=== PATIENT | female | born 1945 | race Caucasian/White ===

== ENCOUNTER 2022-11-19 09:38 | Outpatient (CLI) | payer MEDICARE, OTHER, SELFPAY | END 2022-11-19 09:39 | disposition home or self-care (01) | LOC: INJ CL 09:40 | PROVIDERS: PCP Family Medicine; Visit Provider Family Medicine | DX: M16.11 Unilateral primary osteoarthritis, right hip (principal); M25.551 Pain in right hip | CPT/HCPCS: 20610; 77002; J0702; Q9966 ==

== ENCOUNTER 2023-06-10 15:50 | Inpatient (IN) | payer MEDICARE, OTHER, SELFPAY ==
[2023-06-10] VITALS (102 sets, daily range): BP systolic 40–186; BP diastolic 21–104; PULSE 50–118; RESP 12–22; TEMP 35.9–36.8; O2SAT 92–100; BMI 32.2
[2023-06-10] MEDS: LACTATED RINGERS 1000 ML 1,000 ML 100 ML IV ×2 (06:15→09:36)
[2023-06-10] MEDS: ACETAMINOPHEN 500 MG TABLET 1000 MG PO ×3 (07:16→20:55)
[2023-06-10] MEDS: OXYCODONE (CR) 10 MG TAB.ER.12H PO (07:17)
[2023-06-10] MEDS: CELECOXIB 200 MG CAPSULE PO (07:17)
[2023-06-10] MEDS: SODIUM CHLORIDE 0.9 % (FLUSH) 10 ML SYRINGE IVF (07:17)
--- NOTE | 2023-06-10 07:45 | CRLHL7_ITS ---
For Patients: As a result of the Cures Act, medical imaging exams and procedure reports are released immediately into your electronic medical record. You may view this report before your referring provider. If you have questions, please contact your health care provider. Indication: Hip replacement surgery Technique: AP hip fluoroscopic images. Fluoroscopy time 86.1 seconds. Findings/Impression: Hardware from a right total hip arthroplasty is in satisfactory position. Dictated by Valentino Reyes MD @ 06/10/2023 12:44:54 PM (Electronically Signed)
--- NOTE | 2023-06-10 07:48 | SUR.PREOP ---
TIME?OUT:?0750 PT/RN/MDA?VERIFICATION?OF?SURGICAL?SITERight Hip,?PROCEDURE Nerve Block,?AND?CONSENT OBTAINED?PRIOR?TO?INVASIVE?PROCEDURE.
[2023-06-10] MEDS: MIDAZOLAM HCL 1 MG/ML inj IVP (07:51)
[2023-06-10] MEDS: fentaNYL 100 MCG/2 ML inj IVP (07:51)
[2023-06-10] MEDS: TRANEXAMIC ACID 100 MG/ML INJ 1000 MG IV (08:10)
[2023-06-10] MEDS: CEFAZOLIN 2 GM INJ IVP (08:15)
--- NOTE | 2023-06-10 08:25 | P.NB_ITS ---
Nerve Block Nerve Block Time Seen by Provider: 07:54 Date Seen: 06/10/23 Type of block requested by surgeon for post-operative analgesia: SAYDA/LFCN Side: right Time out performed: Yes Verification of patient name: Yes Verification of date of : Yes Site marking: site marked Name of person performing procedure: Varinder Continuous monitoring Was continuous monitoring of O2 sat, B/P, personnel monitor, recorded every 15 minutes?: Yes Procedure Checklist: sterile prep, needles and gloves Ultrasound guided. Images saved: Yes Medications given in 5ml increments after negative aspiration: Ropivicaine %: 0.5 mL: 30 Needle gauge: 20 Decadron (mg): 10 Precedex (mcg): 25 Patient tolerated procedure well: Yes Additional comments: Needle noted below psoas tendon needle noted adjacent to LFCN Block Charges Block Charge (with Pro Fee): Other Periph Nerve Block Use of Ultrasound Machine for Block: Yes- US Guidance/pain block
--- NOTE | 2023-06-10 08:26 | W.ANESCHARGE ---
Anesthesia Charges Start Date/Time Anesthesia Start Date: 06/10/23 Anesthesia Start Time: 07:58 Stop Date/Time Anesthesia Stop Date: 06/10/23 Anesthesia Stop Time: : Summary Extremes of Age - Over 70 or under 1: MDA
--- NOTE | 2023-06-10 09:32 | CRLHL7_ITS ---
For Patients: As a result of the Cures Act, medical imaging exams and procedure reports are released immediately into your electronic medical record. You may view this report before your referring provider. If you have questions, please contact your health care provider. Indication: Postop Technique: AP hip centered pelvis and lateral view right hip Findings/Impression: Hardware from a right total hip arthroplasty is in satisfactory position. Bone alignment is normal. No sign of acute fracture. There is a curvilinear density projecting over the upper thigh soft tissues measuring 1.5 cm in length, possible foreign body. Degenerative changes left hip. Dictated by Valentino Reyes MD @ 06/10/2023 12:49:05 PM (Electronically Signed)
--- NOTE | 2023-06-10 09:34 | P.ORPRC_ITS ---
Procedure Note Date of procedure: 06/10/23 Procedure: PREOPERATIVE DIAGNOSIS: Right hip osteoarthritis POSTOPERATIVE DIAGNOSIS: Right hip osteoarthritis NAME OF OPERATION: Right total hip arthroplasty SURGEON: Spencer Oconnor MD BUILDING MAINTENANCE WORKER: Gia Orr PA-C, JAMIE Kraft IMPLANTS: 1. [employer] # 54 sector ingrowth cup 2. 36 x 54 +4 neutral polyethylene 3. Actis # 7 standard collared ingrowth stem 4. 36 + 1.5 cobalt chrome femoral head ANESTHESIA: General ESTIMATED BLOOD LOSS: 1000 cc COMPLICATIONS: None SPECIMENS: None DRAINS: None PREOPERATIVE ANTIBIOTICS: Ancef 2 grams INDICATIONS: The patient is a 77-year-old with a longstanding history of severe, unrelenting right hip pain secondary to end-stage right hip osteoarthritis. Despite appropriate nonoperative management, including activity modification, use of an assist device, anti-inflammatories, [id number] pain medication, physical therapy and injections, they continue to have pain and disability. Operative intervention was offered. The risks, benefits and expected outcomes were discussed in detail. These included but were not limited to: Infection, bleeding, injury to blood vessel or nerve, venous thromboembolism. All questions were answered to their satisfaction. Use of an embalmer assistant was necessary throughout the case for patient positioning and safety, soft tissue retraction and closure. PROCEDURE: The patient was placed supine on the Kelly table. General anesthesia was administered. The embalmer assistant made sure the patient was properly positioned. The right hip was prepped and draped in the usual sterile fashion. The image intensifier was brought in for a perfect AP pelvis and a perfect double tear drop AP view of each hip which were used for intraoperative templating with our fluoroscopic guide. An oblique incision was made 3 cm distal and 3 cm lateral to the anterior superior iliac spine. The embalmer assistant retracted the soft tissues to protect them. Subcutaneous dissection was taken with electrocautery to the superficial fascia. The fascia was divided in line with the incision. Blunt dissection was carried medially to the tensor fascia roberto and sartorius interval. Deep dissection was carried with electrocautery. The circumflex vessels were cauterized and divided. The capsule was exposed and then divided in a T- fashion, tagged with #1 Ethibond sutures. Retractors were placed in the joint, held by the embalmer assistant. The corkscrew was placed in the femoral head. The neck cut was made in the subcapital region. We made a second neck cut more distal. The napkin ring of bone was removed. The femoral head was removed intact. Acetabular retractors were placed, held by the embalmer assistant. The labrum was sharply debrided. The capsule was released. The 43 mm reamer was used to the true medial wall. We then enlarged in 2 mm increments using the image intensifier for our reamer placement. We impacted the cup which had excellent purchase. We placed the hole eliminator and the polyethylene. Attention was then turned to the proximal femur. The limb was placed in 140 degrees of external rotation, maximum extension and adduction. A significant amount of time was spent releasing the capsule to allow us to deliver the femur into the wound and complete the femoral side safely. Retractors were held by the embalmer assistant throughout the femoral preparation. The cook box filler and canal finder were used. Broaches were used to a stable size. The calcar reamer was used. Trial components were placed. The hip was reduced and was found to be stable with appropriate soft tissue tension. Length and offset had been nicely restored using the image intensifier and our fluoroscopic guide. Trial components were removed. The stem was impacted. We placed the femoral head. Again, the hip was reduced and was found to be stable with appropriate soft tissue tension. Length and offset had been nicely restored. The embalmer assistant did a three minute dilute Betadine solution soak. The embalmer assistant irrigated the wound with 3 liters of normal saline via pulse lavage. The embalmer assistant repaired the anterior capsule with a #1 Vicryl and our previously placed Ethibond sutures. The embalmer assistant closed the fascia over the tensor fascia roberto with a #1 PDO Stratafix, subcutaneous tissues with 2-0 Vicryl, skin with a running 3-0 Stratafix and glue. A dry dressing was applied by the embalmer assistant. Sponge and needle counts were correct x 2. The patient tolerated the procedure well; there were no apparent complications. They were awakened and extubated in the operating room, sent to the Post-Anesthesia Care Unit in satisfactory condition. PLAN: 1. The patient will be mobilized with physical therapy, weight-bearing as tolerates 2. Xarelto x 5 days then aspirin x 30 days will be used for DVT prophylaxis 3. The patient will be discharged once medically appropriate
--- NOTE | 2023-06-10 10:26 | W.ANESCHARGE ---
Anesthesia Charges Start Date/Time Anesthesia Start Date: 06/10/23 Anesthesia Start Time: 07:58 Stop Date/Time Anesthesia Stop Date: 06/10/23 Anesthesia Stop Time: 10:23
[2023-06-10] MEDS: fentaNYL 100 MCG/2 ML inj 50 MCG IVP (10:30)
[2023-06-10] MEDS: HYDROmorphone 0.5 mg/0.5 ml inj IVP ×2 (10:38→10:49)
--- NOTE | 2023-06-10 11:04 | PC.NURSE ---
dISCUSSED LOW BP WITH IZA EVANS. HE WAS OKAY WITH CONTINUING TRENDELENBERG, INCREASING FLUIDS TO BRING PRESSURE UP. HE ALSO ORDERED NO FURTHER PAIN MEDICATION.
[2023-06-10] MEDS: LACTATED RINGERS 1000 ML 1,000 ML 35 ML IV ×2 (11:12→12:05)
[2023-06-10] MEDS: PHENYLEPHRINE 100 MCG/ML SYRINGE IVP ×12 (11:15→13:25)
[2023-06-10] MEDS: ePHEDrine sulfate 5 MG/ML inj IVP ×3 (11:39→12:15)
--- NOTE | 2023-06-10 11:58 | PC.NURSE ---
NARENDRA CHANCERY CLERK STARTING SECOND IV
[2023-06-10 12:54] LABS: Hemoglobin* 9.4 gm/dL (12.0-16.0)
--- NOTE | 2023-06-10 13:35 | PC.NURSE ---
Dr. Lewis here to place central line.
--- NOTE | 2023-06-10 13:45 | PC.NURSE ---
Joshua starting procedure to place central line at 1344
--- NOTE | 2023-06-10 13:47 | PC.NURSE ---
central line 3 way cath kit. [id number], lot [id number], expires 05/01/24
--- NOTE | 2023-06-10 14:07 | CRLHL7_ITS ---
For Patients: As a result of the Century Cures Act, medical imaging exams and procedure reports are released immediately into your electronic medical record. You may view this report before your referring provider. If you have questions, please contact your health care provider. INDICATION: Central line placement. TECHNIQUE: Chest 1 view. COMPARISON: None. FINDINGS: Devices: Right IJ central venous catheter distal tip superior cavoatrial junction. Cardiovasculature and mediastinum: Heart size is normal. Normal upper mediastinal contours. Lungs and pleural spaces: Elevated right hemidiaphragm. Lungs are well expanded. No consolidation. No mass. No pleural effusion. No pneumothorax. Bones and soft tissues: No significant findings. IMPRESSION: Right IJ central venous catheter distal tip is in radiographically good position at the superior cavoatrial junction. Dictated by Tamara Fraser MD @ 06/10/2023 2:54:07 PM (Electronically Signed)
--- NOTE | 2023-06-10 14:10 | P.PCN_ITS ---
Procedure Note Date Seen: 06/10/23 Date of procedure: 06/10/23 Will [facility] bill your pro fee for this procedure?: Yes Pre-op diagnosis: 1. Acute blood loss anemia. Post-op diagnosis: same Procedure: 1. Right internal jugular central line placement under ultrasound guidance. Procedure Description: After an informed consent was obtained, patient was positioned and the the right neck was prepped with Chloraprep. An Ultrasound was used to guide the line placement. A right internal jugular vein was identified and 1% Lidocaine without Epinephrine was injected into the skin just above the site of the line placement. A large bore needle was then inserted into the vein under ultrasound guidance and dark venous blood was observed in the syringe. A guide wire was then placed through the needle into the vein and a needle was then withdrawn. Multiple attempts were made at advancing the wire because the patient was dry and the wire would not thread easily. Finally the wire was easily advanced. No ectopy was seen on the quality assurance monitor chassis. Using the Seldinger technique, a dilator was then placed over the wire and used to dilate subcutaneous tissues. After the dilator was withdrawn, a previously flushed triple lumen central line was placed over the wire and the wire was withdrawn. All ports had good blood return into the lumen and they were flushed with normal saline without difficulties. A biopatch was placed at the insertion site. The line was sutured in place. A sterile dressing was placed over the central line. CXR was obtained after the line placement. EBL: 10 mL Complications: none Anesthesia: local Condition: stable Disposition: no change
--- NOTE | 2023-06-10 14:15 | PC.NURSE ---
DR CHARLES CONFIRMED CENTRAL LINE PLACEMENT.
--- NOTE | 2023-06-10 14:33 | PC.NURSE ---
PER MAI GUEVARA, PATIENT TO BE TAKEN TO [facility] AND THEY WILL BE TREATING PATIENTS LOW BP. MEETS DISCHARGE CRITERIA.
[2023-06-10 15:10] LABS: Lactate* 1.9 mmol/L (0.5-1.9)
[2023-06-10 15:12] LABS: Hematocrit 31.7 % (33.0-51.0); Hemoglobin* 9.9 gm/dL (12.0-16.0); Mean Corpuscular HGB Conc 31 gm/dL (32-36); Mean Corpuscular Hemoglobin 30 pg (26-34); Mean Corpuscular Volume 95 fL (80-100); Platelet Count* 280 K/uL (140-440); Red Blood Count 3.34 m/uL (4.00-5.20); White Blood Count* 18.06 K/uL (4.50-11.00)
[2023-06-10 15:14] LABS: Slide Review Reflex No
[2023-06-10] MEDS: TRANEXAMIC ACID 1,000 MG in 0.9 % SODIUM CHLORIDE 100 ml 100 ML 13.75 MG IVPB (15:30)
[2023-06-10 15:33] LABS: Chloride* 105 mmol/L (96-114)
[2023-06-10 15:34] LABS: Albumin* 3.1 g/dL (3.3-5.0); Potassium* 3.8 mmol/L (3.6-5.1); Sodium* 137 mmol/L (135-149)
[2023-06-10 15:37] LABS: Anion Gap 7 mEq/L (7-15); Blood Urea Nitrogen* 17 mg/dL (7-30); Carbon Dioxide* 25 mmol/L (20-32); Creatinine* 0.7 mg/dL (0.5-1.5); Est. Creatinine Clearance* 34.42; Estimated Glomerular Filt Rate 88 ml/min; Glucose* 186 mg/dL (60-115); Phosphorus* 3.5 mg/dL (2.5-4.5)
[2023-06-10 15:38] LABS: Calcium* 8.2 mg/dL (8.4-10.6)
[2023-06-10] MEDS: LACTATED RINGERS 1000 ML 1,000 ML 75 ML IV (15:39)
--- NOTE | 2023-06-10 16:54 | P.IMCN_ITS ---
Date of Consult Patient: Ronn Patient Consult date: 06/10/23 Requesting Physician: Orthopedics Primary Care Provider: Melanie Mcgovern, DO Consult Narrative Reason for consult: Hypovolemic shock, blood loss anemia s/p elective R TONY Narrative: Gabriella Rg is a 77 year old woman underwent an elective right total hip arthroplasty 06/10/[address] Spencer Oconnor, [facility], [place], [place]. Patient ordinarily takes rivaroxaban for paroxysmal atrial fibrillation with a CHADS risk score of 2. Last dose of her rivaroxaban was on 06/06/2023. She was deemed high risk for blood loss intraoperatively. Was given tranexamic acid 1 g IV prior to surgical incision, and another 1 g IV at surgical closure. Lost 1 L of blood intraoperatively. Preoperative hemoglobin was 12.7. Postoperatively around noon today her hemoglobin was down to 9.4. Systolic blood pressures dropped into the 60s for while. Received extra IV fluids. Central line was placed in the operating room. Was started on a norepinephrine drip. Has continued to have adequate urine output. Mentation has been excellent throughout. Review of Systems Status of ROS: Reports: 10 or more systems reviewed and unremarkable except as noted in History and below Narrative: Denies chest heaviness, pressure, tightness, or pain. Denies syncope or near- syncope. We are not allowing her to sit or stand because of her hypotension. Denies nausea or vomiting. No palpitations or chest fluttering. Denies cough, dyspnea at rest, paroxysmal nocturnal dyspnea, orthopnea. No edema. Bowel bladder function have been adequate and satisfactory. No focal motor neurologic deficits. Has plans of recovering with her daughter in her daughter's home for the next couple of weeks. Ordinarily lives in her own home alone. [facility] Medical History Urinary tract infection ?N39.0 - Urinary tract infection, site not specified (ICD-10) Supratherapeutic international normalized ratio (INR) ?R79.1 - Abnormal coagulation profile (ICD-10) Hematuria ?R31.9 - Hematuria, unspecified (ICD-10) Renal mass ?N28.89 - Other specified disorders of kidney and ureter (ICD-10) Stenosis of urinary meatus Lichen sclerosus ?L90.0 - Lichen sclerosus et atrophicus (ICD-10) Non-rheumatic mitral regurgitation ?I34.0 - Nonrheumatic mitral (valve) insufficiency (ICD-10) Osteopenia ?M85.80 - Other specified disorders of bone density and structure, unspecified site (ICD-10) Colon polyp ?K63.5 - Polyp of colon (ICD-10) Vitamin D deficiency ?E55.9 - Vitamin D deficiency, unspecified (ICD-10) Social anxiety disorder ?F40.10 - Social phobia, unspecified (ICD-10) Hypomagnesemia ?E83.42 - Hypomagnesemia (ICD-10) Paroxysmal atrial fibrillation ?I48.0 - Paroxysmal atrial fibrillation (ICD-10) High cholesterol ?E78.00 - Pure hypercholesterolemia, unspecified (ICD-10) Hypertension ?I10 - Essential (primary) hypertension (ICD-10) Osteoarthritis of left hip ?M16.12 - Unilateral primary osteoarthritis, left hip (ICD-10) Osteoarthritis of carpometacarpal (CMC) joint of left thumb ?M18.12 - Unilateral primary osteoarthritis of first carpometacarpal joint, left hand (ICD-10) Osteoarthritis of carpometacarpal (CMC) joint of right thumb ?M18.11 - Unilateral primary osteoarthritis of first carpometacarpal joint, right hand (ICD-10) Surgical History Hx of breast biopsy ?Z98.890 - Other specified postprocedural states (ICD-10) History of hysterectomy ?Z90.710 - Acquired absence of both cervix and uterus (ICD-10) Hx of cholecystectomy ?Z90.49 - Acquired absence of other specified parts of digestive tract (ICD- 10) Social History Narrative: Adopted What is your current living situation?: I presently have a place to live In the past 12 months, utilities in danger of being shut off: no In past 12 months, lack of transportation kept you from medical appts, meetings, work, or getting things needed for daily living: no In the past 12 mos, have been you worried that your food would run out before you had money to buy more?: never true In the past 12 mos, the food you bought just didn't last and you didn't have money to buy more?: never true Smoking Status: Never smoker How often do you have a drink containing alcohol: never AUDIT-C Alcohol total score: 0 Non-prescribed substance use: denies use Caffeine: No How often does anyone, including family, friends and others, physically hurt you : never How often does anyone, including family, friends and others, insult or talk down to you: never How often does anyone, including family, friends and others, threaten you with harm: never How often does anyone, including family, friends and others, scream or curse at you: never Meds Home Medications and Allergies Home Medications Medication Instructions Recorded Confirmed Type amlodipine 2.5 mg tablet 2.5 mg PO DAILY 05/26/23 06/10/23 History atorvastatin 20 mg tablet 20 mg PO HS 05/26/23 06/10/23 History lisinopril 40 mg tablet 40 mg PO DAILY 05/26/23 06/06/23 History metoprolol succinate 50 mg 50 mg PO DAILY 05/26/23 06/10/23 History tablet,extended release 24 hr omeprazole 20 mg capsule,delayed 20 mg PO DAILY 05/26/23 06/10/23 History release rivaroxaban 20 mg tablet (Xarelto) 20 mg PO DAILY 05/26/23 06/10/23 History alendronate 70 mg tablet (Fosamax) 70 mg PO QWEEK 06/06/23 06/10/23 History fluticasone propionate 50 2 spray intranasal DAILY 06/10/23 06/10/23 History mcg/actuation nasal spray,suspension Allergies Allergy/AdvReac Type Severity Reaction Status Date / Time No Known Drug Allergies Allergy Verified 06/10/23 06:33 Exam Narrative: Exam Narrative: I examine her an our CCU area. She is laying in Trendelenburg position, with norepinephrine drip at 0.1 mg per kg per minute, systolic blood pressures above 100-110. Over time her systolic blood pressures increased to 180 in the norepinephrine drip is turned off. Blood pressure is drop at this time but not as low as they were previously. Previously systolic blood pressures were in the 60-70 mmHg range. Vision and hearing are adequate. Alert and oriented to self, place, time, situation. Friendly, cooperative, articulate. No icterus or conjunctival injection. Pupils equally round and reactive to light and accommodation. Conjugate gaze. Midline nasal septum. Moist buccal mucosa. Dentition in fair repair. Neck is supple. Midline trachea. No JVD or hepatojugular reflux. Lungs are clear to auscultation without wheezing, rhonchi, or rales. Chest wall excursions are full. No CVA tenderness. Heart tones with regular rhythm, normal S1-S2. Abdomen with active bowel sounds, soft, nontender. Obese. Not moving left lower extremity yet. Full movement in other extremities. Const: Vital Signs, click to edit/add: Vital Signs - 24 hr 06/10/23 06:59 06/10/23 07:50 06/10/23 07:55 Temperature 98.1 F Pulse Rate 79 75 70 Pulse Rate [Pulse Oximeter] Respiratory Rate 16 16 16 Blood Pressure 114/48 L 110/83 97/69 Blood Pressure [Le ft Arm] Pulse Oximetry 95 97 97 Oxygen Delivery Me thod Room Air Nasal Cannula Nasal Cannula Oxygen Flow Rate 2 2 06/10/23 10:18 06/10/23 10:25 06/10/23 10:30 Temperature 97 F L Pulse Rate 66 58 L 55 L Pulse Rate [Pulse Oximeter] Respiratory Rate 16 16 16 Blood Pressure 119/90 H 108/55 L 103/52 L Blood Pressure [Le ft Arm] Pulse Oximetry 96 100 95 Oxygen Delivery Me thod Room Air Nasal Cannula Nasal Cannula Oxygen Flow Rate 2 2 06/10/23 10:35 06/10/23 10:40 06/10/23 10:45 Temperature Pulse Rate 61 56 L 59 L Pulse Rate [Pulse Oximeter] Respiratory Rate 16 16 16 Blood Pressure 104/91 H 100/52 L 101/59 L Blood Pressure [Le ft Arm] Pulse Oximetry 98 100 100 Oxygen Delivery Me thod Nasal Cannula Nasal Cannula Nasal Cannula Oxygen Flow Rate 2 2 2 06/10/23 10:50 06/10/23 10:55 06/10/23 10:57 Temperature Pulse Rate 53 L 64 54 L Pulse Rate [Pulse Oximeter] Respiratory Rate 16 16 16 Blood Pressure 92/48 L 82/48 L 81/68 L Blood Pressure [Le ft Arm] Pulse Oximetry 100 100 100 Oxygen Delivery Me thod Nasal Cannula Nasal Cannula Nasal Cannula Oxygen Flow Rate 4 4 4 06/10/23 11:00 06/10/23 11:03 06/10/23 11:05 Temperature Pulse Rate 54 L 50 L 79 Pulse Rate [Pulse Oximeter] Respiratory Rate 16 16 16 Blood Pressure 81/60 L 85/48 L 83/50 L Blood Pressure [Le ft Arm] Pulse Oximetry 100 99 99 Oxygen Delivery Me thod Nasal Cannula Nasal Cannula Nasal Cannula Oxygen Flow Rate 4 4 06/10/23 11:08 06/10/23 11:10 06/10/23 11:13 Temperature Pulse Rate 62 63 66 Pulse Rate [Pulse Oximeter] Respiratory Rate 16 16 16 Blood Pressure 82/46 L 76/49 L 80/46 L Blood Pressure [Le ft Arm] Pulse Oximetry 98 99 96 Oxygen Delivery Me thod Nasal Cannula Nasal Cannula Nasal Cannula Oxygen Flow Rate 4 3 2 06/10/23 11:15 06/10/23 11:18 06/10/23 11:20 Temperature Pulse Rate 59 L 59 L 64 Pulse Rate [Pulse Oximeter] Respiratory Rate 16 16 16 Blood Pressure 86/57 L 91/54 L 89/53 L Blood Pressure [Le ft Arm] Pulse Oximetry 98 97 97 Oxygen Delivery Me thod Nasal Cannula Nasal Cannula Nasal Cannula Oxygen Flow Rate 2 2 2 06/10/23 11:23 06/10/23 11:25 06/10/23 11:28 Temperature Pulse Rate 59 L 73 66 Pulse Rate [Pulse Oximeter] Respiratory Rate 16 16 16 Blood Pressure 77/51 L 101/54 L 84/51 L Blood Pressure [Le ft Arm] Pulse Oximetry 99 98 95 Oxygen Delivery Me thod Nasal Cannula Nasal Cannula Nasal Cannula Oxygen Flow Rate 2 2 2 06/10/23 11:30 06/10/23 11:35 06/10/23 11:38 Temperature Pulse Rate 67 60 65 Pulse Rate [Pulse Oximeter] Respiratory Rate 16 16 16 Blood Pressure 82/49 L 85/51 L 71/49 L Blood Pressure [Le ft Arm] Pulse Oximetry 99 99 100 Oxygen Delivery Me thod Nasal Cannula Nasal Cannula Nasal Cannula Oxygen Flow Rate 2 4 4 06/10/23 11:40 06/10/23 11:43 06/10/23 11:45 Temperature Pulse Rate 74 69 67 Pulse Rate [Pulse Oximeter] Respiratory Rate 16 20 18 Blood Pressure 81/59 L 93/47 L 85/48 L Blood Pressure [Le ft Arm] Pulse Oximetry 100 100 99 Oxygen Delivery Me thod Nasal Cannula Nasal Cannula Nasal Cannula Oxygen Flow Rate 4 4 4 06/10/23 11:48 06/10/23 11:50 06/10/23 11:53 Temperature Pulse Rate 64 80 76 Pulse Rate [Pulse Oximeter] Respiratory Rate 16 16 16 Blood Pressure 76/46 L 83/45 L 85/47 L Blood Pressure [Le ft Arm] Pulse Oximetry 97 96 99 Oxygen Delivery Me thod Nasal Cannula Nasal Cannula Nasal Cannula Oxygen Flow Rate 4 4 4 06/10/23 11:57 06/10/23 12:00 06/10/23 12:05 Temperature Pulse Rate 82 63 63 Pulse Rate [Pulse Oximeter] Respiratory Rate 16 16 16 Blood Pressure 104/43 L 77/50 L 106/53 L Blood Pressure [Le ft Arm] Pulse Oximetry 100 99 98 Oxygen Delivery Me thod Nasal Cannula Nasal Cannula Nasal Cannula Oxygen Flow Rate 4 4 4 06/10/23 12:08 06/10/23 12:10 06/10/23 12:12 Temperature Pulse Rate 79 73 80 Pulse Rate [Pulse Oximeter] Respiratory Rate 16 16 16 Blood Pressure 86/47 L 87/52 L 40/21 L Blood Pressure [Le ft Arm] Pulse Oximetry 100 99 98 Oxygen Delivery Me thod Nasal Cannula Nasal Cannula Nasal Cannula Oxygen Flow Rate 4 4 4 06/10/23 12:15 06/10/23 12:18 06/10/23 12:21 Temperature Pulse Rate 80 65 61 Pulse Rate [Pulse Oximeter] Respiratory Rate 16 16 16 Blood Pressure 86/55 L 82/44 L 106/61 Blood Pressure [Le ft Arm] Pulse Oximetry 96 100 100 Oxygen Delivery Me thod Nasal Cannula Nasal Cannula Nasal Cannula Oxygen Flow Rate 4 4 4 06/10/23 12:24 06/10/23 12:27 06/10/23 12:30 Temperature Pulse Rate 69 83 76 Pulse Rate [Pulse Oximeter] Respiratory Rate 16 16 16 Blood Pressure 99/63 87/54 L 105/65 Blood Pressure [Le ft Arm] Pulse Oximetry 99 100 98 Oxygen Delivery Me thod Nasal Cannula Nasal Cannula Nasal Cannula Oxygen Flow Rate 4 4 4 06/10/23 12:33 06/10/23 12:36 06/10/23 12:39 Temperature 97 F L 97 F L Pulse Rate 80 74 90 Pulse Rate [Pulse Oximeter] Respiratory Rate 16 22 16 Blood Pressure 83/49 L 103/62 91/63 Blood Pressure [Le ft Arm] Pulse Oximetry 95 99 96 Oxygen Delivery Me thod Nasal Cannula Nasal Cannula Nasal Cannula Oxygen Flow Rate 4 5 5 06/10/23 12:42 06/10/23 12:45 06/10/23 12:48 Temperature 97 F L 97 F L 97 F L Pulse Rate 80 78 74 Pulse Rate [Pulse Oximeter] Respiratory Rate 17 14 16 Blood Pressure 89/56 L 85/43 L 103/65 Blood Pressure [Le ft Arm] Pulse Oximetry 100 100 98 Oxygen Delivery Me thod Nasal Cannula Nasal Cannula Nasal Cannula Oxygen Flow Rate 4 4 4 06/10/23 12:51 06/10/23 12:54 06/10/23 12:57 Temperature 97 F L 97 F L 97 F L Pulse Rate 82 92 80 Pulse Rate [Pulse Oximeter] Respiratory Rate 16 16 16 Blood Pressure 96/56 L 58/48 L 93/54 L Blood Pressure [Le ft Arm] Pulse Oximetry 100 97 100 Oxygen Delivery Me thod Nasal Cannula Nasal Cannula Nasal Cannula Oxygen Flow Rate 4 4 4 06/10/23 13:00 06/10/23 13:03 06/10/23 13:06 Temperature 97 F L 97 F L 97 F L Pulse Rate 77 87 87 Pulse Rate [Pulse Oximeter] Respiratory Rate 12 14 16 Blood Pressure 93/59 L 86/66 L 86/51 L Blood Pressure [Le ft Arm] Pulse Oximetry 97 99 100 Oxygen Delivery Me thod Nasal Cannula Nasal Cannula Nasal Cannula Oxygen Flow Rate 4 4 4 06/10/23 13:09 06/10/23 13:12 06/10/23 13:15 Temperature 97 F L 97 F L Pulse Rate 68 79 76 Pulse Rate [Pulse Oximeter] Respiratory Rate 15 16 16 Blood Pressure 99/63 87/67 L 87/48 L Blood Pressure [Le ft Arm] Pulse Oximetry 99 98 100 Oxygen Delivery Me thod Nasal Cannula Nasal Cannula Oxygen Flow Rate 4 4 06/10/23 13:18 06/10/23 13:21 06/10/23 13:24 Temperature Pulse Rate 69 85 89 Pulse Rate [Pulse Oximeter] Respiratory Rate 16 16 16 Blood Pressure 103/67 89/54 L 90/61 Blood Pressure [Le ft Arm] Pulse Oximetry 100 98 98 Oxygen Delivery Me thod Oxygen Flow Rate 06/10/23 13:27 06/10/23 13:30 06/10/23 13:33 Temperature Pulse Rate 83 92 96 Pulse Rate [Pulse Oximeter] Respiratory Rate 16 16 16 Blood Pressure 106/59 L 81/63 L 88/59 L Blood Pressure [Le ft Arm] Pulse Oximetry 99 98 98 Oxygen Delivery Me thod Nasal Cannula Oxygen Flow Rate 4 06/10/23 13:36 06/10/23 13:39 06/10/23 13:42 Temperature 96.9 F L Pulse Rate 75 82 76 Pulse Rate [Pulse Oximeter] Respiratory Rate 16 16 16 Blood Pressure 91/53 L 88/52 L 96/54 L Blood Pressure [Le ft Arm] Pulse Oximetry 96 100 100 Oxygen Delivery Me thod Nasal Cannula Oxygen Flow Rate 4 06/10/23 13:45 06/10/23 13:48 06/10/23 13:51 Temperature Pulse Rate 98 101 H 76 Pulse Rate [Pulse Oximeter] Respiratory Rate 16 16 16 Blood Pressure 93/66 99/48 L 100/56 L Blood Pressure [Le ft Arm] Pulse Oximetry 98 100 100 Oxygen Delivery Me thod Oxygen Flow Rate 06/10/23 13:54 06/10/23 13:57 06/10/23 14:00 Temperature 96.9 F L Pulse Rate 89 108 H 78 Pulse Rate [Pulse Oximeter] Respiratory Rate 16 16 16 Blood Pressure 91/68 108/71 105/71 Blood Pressure [Le ft Arm] Pulse Oximetry 100 100 100 Oxygen Delivery Me thod Nasal Cannula Nasal Cannula Oxygen Flow Rate 4 4 06/10/23 14:03 06/10/23 14:06 06/10/23 14:09 Temperature 96.8 F L Pulse Rate 75 63 93 Pulse Rate [Pulse Oximeter] Respiratory Rate 16 16 16 Blood Pressure 107/63 117/97 H 77/43 L Blood Pressure [Le ft Arm] Pulse Oximetry 100 100 97 Oxygen Delivery Me thod Nasal Cannula Oxygen Flow Rate 4 06/10/23 14:11 06/10/23 14:15 06/10/23 14:25 Temperature 96.8 F L Pulse Rate 60 65 101 H Pulse Rate [Pulse Oximeter] Respiratory Rate 16 16 18 Blood Pressure 99/70 83/65 L Blood Pressure [Le ft Arm] 86/54 L Pulse Oximetry 98 100 Oxygen Delivery Me thod Nasal Cannula Nasal Cannula Oxygen Flow Rate 4 2 06/10/23 14:30 06/10/23 14:35 06/10/23 14:40 Temperature Pulse Rate Pulse Rate [Pulse Oximeter] 72 56 L 77 Respiratory Rate 18 18 20 Blood Pressure Blood Pressure [Le ft Arm] 95/52 L 96/63 102/85 Pulse Oximetry 95 95 93 Oxygen Delivery Me thod Nasal Cannula Room Air Nasal Cannula Oxygen Flow Rate 2 2 2 06/10/23 14:45 06/10/23 14:50 06/10/23 15:00 Temperature 97.4 F L 97.4 F L Pulse Rate Pulse Rate [Pulse Oximeter] 83 96 65 Respiratory Rate 20 20 20 Blood Pressure Blood Pressure [Le ft Arm] 172/71 H 167/104 H 186/83 H Pulse Oximetry 98 94 94 Oxygen Delivery Me thod Nasal Cannula Nasal Cannula Nasal Cannula Oxygen Flow Rate 2 2 Documenting provider has reviewed patient's vital signs: yes Labs Labs: Short CBC 06/10/23 06/10/23 Range/Units 15:07 Unknown WBC 18.06 H (4.50-11.00) K/uL Hgb 9.9 L 9.4 L (12.0-16.0) gm/dL Hct 31.7 L (33.0-51.0) % Plt Count 280 (140-440) K/uL BMP 06/10/23 15:07 Sodium 137 Potassium 3.8 Chloride 105 Carbon Dioxide 25 BUN 17 Creatinine 0.7 Glucose 186 H Calcium 8.2 L Liver Function 06/10/23 Range/Units 15:07 Albumin 3.1 L (3.3-5.0) g/dL Assessment and Plan Assessment and plan (1) Postoperative hypovolemic shock: Problem comment: 06/10/2023: Perioperative systolic blood pressures 60-70 mmHg. IV crystalloids administered. Later started on norepinephrine drip. Status: Acute (2) Postoperative anemia due to acute blood loss: Problem comment: Preop hemoglobin on 06/02/2023 was 12.7 mg/dL. Postop hemoglobin on 06/10/2023 was 9.4 at noon. Postop hemoglobin on 06/10/2023 was 9.9 at 3:00 p.m. Status: Acute (3) Osteoarthritis of right hip: Status: Acute (4) S/P total right hip arthroplasty: Status: Acute (5) Paroxysmal atrial fibrillation: Problem comment: 06/10/2023 in normal sinus rhythm Status: Acute (6) Chronic anticoagulation: Problem comment: For paroxysmal atrial fibrillation with rivaroxaban. Last dose of rivaroxaban was 06/06/2023 prior to surgery on 06/10/2023. Status: Acute (7) Non-rheumatic mitral regurgitation: Status: Acute Plan 1. Reviewed impression with patient and daughter. 2. Answered their questions. 3. Change to inpatient care in CCU. 4. Transfuse with 1 unit packed red blood cells 5. Tranexamic acid 1 g IV given at time of surgical incision, also at time of surgical closure. Will give 1 more g IV over 8 hours now. 6. Goal of norepinephrine pressor drip is to maintain mean arterial pressures greater than or equal to 65 mmHg and urine output 0.5 mL/kg/hour, between 35 and 40 mL/hour. 7. Hold rivaroxaban for now. 8. Continue with her low-dose beta-juan manuel for now but hold her other antihypertensive medications. 9. Monitor vitals and labs. Will check an EKG and troponin I. Monitor on telemetry. 10. Patient and daughter agreeable with above stated plans and recommendations. 11. Will work with Orthopedic surgery.
[2023-06-10] MEDS: CEFAZOLIN 2 GM in 0.9 % SODIUM CHLORIDE Mini-bag 100 ML IVPB (16:56)
[2023-06-10 17:17] LABS: Troponin I* < 0.01 ng/mL (0.01-0.04)
[2023-06-10 18:17] LABS: Troponin I* < 0.01 ng/mL (0.01-0.04)
--- NOTE | 2023-06-10 19:33 | PC.NURSE ---
End of shift: [id number], Patient is alert and oriented, dtr at bedside. Patient tolerating reg diet, denies N/V/SOB, chest pain and pain. Patient has a patent colby placed in the OR. Emptied 650cc at 1400 and 75cc at 1600, MD notified of output. Patient receiving 1 unit of PRBCs, tolerating well, no reaction noted. Dressing to right hip C/D/I. Sven teds, plexi pulses and ice pack to op site. Patient has a patent right internal jugular vein 3 lumen central line placed in the OR, a SL 20G IV in her right FA, a patent 18G IV in her left wrist running TXA see eMAR. Patient's BP is stable, MAP of >65.
[2023-06-10] MEDS: MAGNESIUM IV 2 GM/50 ML PIGGYBACK IVPB (20:18)
[2023-06-10] MEDS: 0.9 % SODIUM CHLORIDE 250 ml 250 ML IV (21:03)
[2023-06-11] VITALS (20 sets, daily range): BP systolic 93–135; BP diastolic 53–80; PULSE 59–106; RESP 14–18; TEMP 36.2–36.6; O2SAT 86–98
[2023-06-11] MEDS: CEFAZOLIN 2 GM in 0.9 % SODIUM CHLORIDE Mini-bag 100 ML IVPB (01:08)
[2023-06-11] MEDS: ACETAMINOPHEN 500 MG TABLET 1000 MG PO ×4 (02:46→23:05)
--- NOTE | 2023-06-11 03:25 | PC.NURSE ---
Patient denies any pain, scheduled Tylenol given. VSS. T&R. Enc C/DB.
[2023-06-11] MEDS: HEPARIN 500 UNIT/5 ML SYRINGE IVF ×3 (06:06→06:09)
[2023-06-11 06:41] LABS: Basophils Percent Auto 0.1 % (0.0-3.0); Hematocrit 28.2 % (33.0-51.0); Hemoglobin* 9.1 gm/dL (12.0-16.0); Immature Granulocytes Pct Auto 0.2 %; Lymphocytes Percent Auto 6.3 % (20-44); Mean Corpuscular HGB Conc 32 gm/dL (32-36); Mean Corpuscular Hemoglobin 30 pg (26-34); Mean Corpuscular Volume 94 fL (80-100); Monocytes Percent Auto 8.3 % (0.0-11.0); Neutrophils Percent Auto 85.1 % (42.0-72.0); Platelet Count* 180 K/uL (140-440); RDW Coefficient of Variation % 13.8 % (11.5-15.5); Red Blood Count 3.01 m/uL (4.00-5.20); White Blood Count* 11.05 K/uL (4.50-11.00)
[2023-06-11 07:10] LABS: Sodium* 135 mmol/L (135-149)
[2023-06-11 07:11] LABS: Potassium* 3.9 mmol/L (3.6-5.1)
[2023-06-11 07:14] LABS: Blood Urea Nitrogen* 16 mg/dL (7-30); Creatinine* 0.8 mg/dL (0.5-1.5); Est. Creatinine Clearance* 34.42; Estimated Glomerular Filt Rate 75 ml/min
[2023-06-11 07:18] LABS: Slide Review Reflex No
[2023-06-11 07:23] LABS: Troponin I* 0.01 ng/mL (0.01-0.04)
--- NOTE | 2023-06-11 08:13 | PM.ORPN ---
Subjective Subjective Time Seen by Provider: 07:20 Date Seen: 06/11/23 Principal diagnosis: Status post right hip replacement Interval history: Gabriella had hypovolemic shock with blood loss anemia status post hip replacement. She is comfortable resting in bed this morning. She has not been out of bed since surgery. Will plan to keep her in the hospital at least another day. Ortho Exam Narrative Exam Narrative: Alert and oriented x3. Patient is in no acute distress. Converses without labored breathing. Hearing is grossly intact. Examination of the right hip shows the dressing is intact. No erythema or warmth or sign of infection. Minimal soft tissue edema about the hip and thigh. CMS intact right lower extremity. Bilateral calves are soft and nontender. Const Vital Signs, click to edit/add: Vital Signs - 24 hr 06/10/23 10:18 06/10/23 10:25 06/10/23 10:30 Temperature 97 F L Pulse Rate 66 58 L 55 L Pulse Rate [Pulse Oximeter] Respiratory Rate 16 16 16 Blood Pressure 119/90 H 108/55 L 103/52 L Blood Pressure [Left Arm] Pulse Oximetry 96 100 95 Oxygen Delivery Method Room Air Nasal Cannula Nasal Cannula Oxygen Flow Rate 2 2 06/10/23 10:35 06/10/23 10:40 06/10/23 10:45 Temperature Pulse Rate 61 56 L 59 L Pulse Rate [Pulse Oximeter] Respiratory Rate 16 16 16 Blood Pressure 104/91 H 100/52 L 101/59 L Blood Pressure [Left Arm] Pulse Oximetry 98 100 100 Oxygen Delivery Method Nasal Cannula Nasal Cannula Nasal Cannula Oxygen Flow Rate 2 2 2 06/10/23 10:50 06/10/23 10:55 06/10/23 10:57 Temperature Pulse Rate 53 L 64 54 L Pulse Rate [Pulse Oximeter] Respiratory Rate 16 16 16 Blood Pressure 92/48 L 82/48 L 81/68 L Blood Pressure [Left Arm] Pulse Oximetry 100 100 100 Oxygen Delivery Method Nasal Cannula Nasal Cannula Nasal Cannula Oxygen Flow Rate 4 4 4 06/10/23 11:00 06/10/23 11:03 06/10/23 11:05 Temperature Pulse Rate 54 L 50 L 79 Pulse Rate [Pulse Oximeter] Respiratory Rate 16 16 16 Blood Pressure 81/60 L 85/48 L 83/50 L Blood Pressure [Left Arm] Pulse Oximetry 100 99 99 Oxygen Delivery Method Nasal Cannula Nasal Cannula Nasal Cannula Oxygen Flow Rate 4 4 06/10/23 11:08 06/10/23 11:10 06/10/23 11:13 Temperature Pulse Rate 62 63 66 Pulse Rate [Pulse Oximeter] Respiratory Rate 16 16 16 Blood Pressure 82/46 L 76/49 L 80/46 L Blood Pressure [Left Arm] Pulse Oximetry 98 99 96 Oxygen Delivery Method Nasal Cannula Nasal Cannula Nasal Cannula Oxygen Flow Rate 4 3 2 06/10/23 11:15 06/10/23 11:18 06/10/23 11:20 Temperature Pulse Rate 59 L 59 L 64 Pulse Rate [Pulse Oximeter] Respiratory Rate 16 16 16 Blood Pressure 86/57 L 91/54 L 89/53 L Blood Pressure [Left Arm] Pulse Oximetry 98 97 97 Oxygen Delivery Method Nasal Cannula Nasal Cannula Nasal Cannula Oxygen Flow Rate 2 2 2 06/10/23 11:23 06/10/23 11:25 06/10/23 11:28 Temperature Pulse Rate 59 L 73 66 Pulse Rate [Pulse Oximeter] Respiratory Rate 16 16 16 Blood Pressure 77/51 L 101/54 L 84/51 L Blood Pressure [Left Arm] Pulse Oximetry 99 98 95 Oxygen Delivery Method Nasal Cannula Nasal Cannula Nasal Cannula Oxygen Flow Rate 2 2 2 06/10/23 11:30 06/10/23 11:35 06/10/23 11:38 Temperature Pulse Rate 67 60 65 Pulse Rate [Pulse Oximeter] Respiratory Rate 16 16 16 Blood Pressure 82/49 L 85/51 L 71/49 L Blood Pressure [Left Arm] Pulse Oximetry 99 99 100 Oxygen Delivery Method Nasal Cannula Nasal Cannula Nasal Cannula Oxygen Flow Rate 2 4 4 06/10/23 11:40 06/10/23 11:43 06/10/23 11:45 Temperature Pulse Rate 74 69 67 Pulse Rate [Pulse Oximeter] Respiratory Rate 16 20 18 Blood Pressure 81/59 L 93/47 L 85/48 L Blood Pressure [Left Arm] Pulse Oximetry 100 100 99 Oxygen Delivery Method Nasal Cannula Nasal Cannula Nasal Cannula Oxygen Flow Rate 4 4 4 06/10/23 11:48 06/10/23 11:50 06/10/23 11:53 Temperature Pulse Rate 64 80 76 Pulse Rate [Pulse Oximeter] Respiratory Rate 16 16 16 Blood Pressure 76/46 L 83/45 L 85/47 L Blood Pressure [Left Arm] Pulse Oximetry 97 96 99 Oxygen Delivery Method Nasal Cannula Nasal Cannula Nasal Cannula Oxygen Flow Rate 4 4 4 06/10/23 11:57 06/10/23 12:00 06/10/23 12:05 Temperature Pulse Rate 82 63 63 Pulse Rate [Pulse Oximeter] Respiratory Rate 16 16 16 Blood Pressure 104/43 L 77/50 L 106/53 L Blood Pressure [Left Arm] Pulse Oximetry 100 99 98 Oxygen Delivery Method Nasal Cannula Nasal Cannula Nasal Cannula Oxygen Flow Rate 4 4 4 06/10/23 12:08 06/10/23 12:10 06/10/23 12:12 Temperature Pulse Rate 79 73 80 Pulse Rate [Pulse Oximeter] Respiratory Rate 16 16 16 Blood Pressure 86/47 L 87/52 L 40/21 L Blood Pressure [Left Arm] Pulse Oximetry 100 99 98 Oxygen Delivery Method Nasal Cannula Nasal Cannula Nasal Cannula Oxygen Flow Rate 4 4 4 06/10/23 12:15 06/10/23 12:18 06/10/23 12:21 Temperature Pulse Rate 80 65 61 Pulse Rate [Pulse Oximeter] Respiratory Rate 16 16 16 Blood Pressure 86/55 L 82/44 L 106/61 Blood Pressure [Left Arm] Pulse Oximetry 96 100 100 Oxygen Delivery Method Nasal Cannula Nasal Cannula Nasal Cannula Oxygen Flow Rate 4 4 4 06/10/23 12:24 06/10/23 12:27 06/10/23 12:30 Temperature Pulse Rate 69 83 76 Pulse Rate [Pulse Oximeter] Respiratory Rate 16 16 16 Blood Pressure 99/63 87/54 L 105/65 Blood Pressure [Left Arm] Pulse Oximetry 99 100 98 Oxygen Delivery Method Nasal Cannula Nasal Cannula Nasal Cannula Oxygen Flow Rate 4 4 4 06/10/23 12:33 06/10/23 12:36 06/10/23 12:39 Temperature 97 F L 97 F L Pulse Rate 80 74 90 Pulse Rate [Pulse Oximeter] Respiratory Rate 16 22 16 Blood Pressure 83/49 L 103/62 91/63 Blood Pressure [Left Arm] Pulse Oximetry 95 99 96 Oxygen Delivery Method Nasal Cannula Nasal Cannula Nasal Cannula Oxygen Flow Rate 4 5 5 06/10/23 12:42 06/10/23 12:45 06/10/23 12:48 Temperature 97 F L 97 F L 97 F L Pulse Rate 80 78 74 Pulse Rate [Pulse Oximeter] Respiratory Rate 17 14 16 Blood Pressure 89/56 L 85/43 L 103/65 Blood Pressure [Left Arm] Pulse Oximetry 100 100 98 Oxygen Delivery Method Nasal Cannula Nasal Cannula Nasal Cannula Oxygen Flow Rate 4 4 4 06/10/23 12:51 06/10/23 12:54 06/10/23 12:57 Temperature 97 F L 97 F L 97 F L Pulse Rate 82 92 80 Pulse Rate [Pulse Oximeter] Respiratory Rate 16 16 16 Blood Pressure 96/56 L 58/48 L 93/54 L Blood Pressure [Left Arm] Pulse Oximetry 100 97 100 Oxygen Delivery Method Nasal Cannula Nasal Cannula Nasal Cannula Oxygen Flow Rate 4 4 4 06/10/23 13:00 06/10/23 13:03 06/10/23 13:06 Temperature 97 F L 97 F L 97 F L Pulse Rate 77 87 87 Pulse Rate [Pulse Oximeter] Respiratory Rate 12 14 16 Blood Pressure 93/59 L 86/66 L 86/51 L Blood Pressure [Left Arm] Pulse Oximetry 97 99 100 Oxygen Delivery Method Nasal Cannula Nasal Cannula Nasal Cannula Oxygen Flow Rate 4 4 4 06/10/23 13:09 06/10/23 13:12 06/10/23 13:15 Temperature 97 F L 97 F L Pulse Rate 68 79 76 Pulse Rate [Pulse Oximeter] Respiratory Rate 15 16 16 Blood Pressure 99/63 87/67 L 87/48 L Blood Pressure [Left Arm] Pulse Oximetry 99 98 100 Oxygen Delivery Method Nasal Cannula Nasal Cannula Oxygen Flow Rate 4 4 06/10/23 13:18 06/10/23 13:21 06/10/23 13:24 Temperature Pulse Rate 69 85 89 Pulse Rate [Pulse Oximeter] Respiratory Rate 16 16 16 Blood Pressure 103/67 89/54 L 90/61 Blood Pressure [Left Arm] Pulse Oximetry 100 98 98 Oxygen Delivery Method Oxygen Flow Rate 06/10/23 13:27 06/10/23 13:30 06/10/23 13:33 Temperature Pulse Rate 83 92 96 Pulse Rate [Pulse Oximeter] Respiratory Rate 16 16 16 Blood Pressure 106/59 L 81/63 L 88/59 L Blood Pressure [Left Arm] Pulse Oximetry 99 98 98 Oxygen Delivery Method Nasal Cannula Oxygen Flow Rate 4 06/10/23 13:36 06/10/23 13:39 06/10/23 13:42 Temperature 96.9 F L Pulse Rate 75 82 76 Pulse Rate [Pulse Oximeter] Respiratory Rate 16 16 16 Blood Pressure 91/53 L 88/52 L 96/54 L Blood Pressure [Left Arm] Pulse Oximetry 96 100 100 Oxygen Delivery Method Nasal Cannula Oxygen Flow Rate 4 06/10/23 13:45 06/10/23 13:48 06/10/23 13:51 Temperature Pulse Rate 98 101 H 76 Pulse Rate [Pulse Oximeter] Respiratory Rate 16 16 16 Blood Pressure 93/66 99/48 L 100/56 L Blood Pressure [Left Arm] Pulse Oximetry 98 100 100 Oxygen Delivery Method Oxygen Flow Rate 06/10/23 13:54 06/10/23 13:57 06/10/23 14:00 Temperature 96.9 F L Pulse Rate 89 108 H 78 Pulse Rate [Pulse Oximeter] Respiratory Rate 16 16 16 Blood Pressure 91/68 108/71 105/71 Blood Pressure [Left Arm] Pulse Oximetry 100 100 100 Oxygen Delivery Method Nasal Cannula Nasal Cannula Oxygen Flow Rate 4 4 06/10/23 14:03 06/10/23 14:06 06/10/23 14:09 Temperature 96.8 F L Pulse Rate 75 63 93 Pulse Rate [Pulse Oximeter] Respiratory Rate 16 16 16 Blood Pressure 107/63 117/97 H 77/43 L Blood Pressure [Left Arm] Pulse Oximetry 100 100 97 Oxygen Delivery Method Nasal Cannula Oxygen Flow Rate 4 06/10/23 14:11 06/10/23 14:15 06/10/23 14:25 Temperature 96.8 F L Pulse Rate 60 65 101 H Pulse Rate [Pulse Oximeter] Respiratory Rate 16 16 18 Blood Pressure 99/70 83/65 L Blood Pressure [Left Arm] 86/54 L Pulse Oximetry 98 100 Oxygen Delivery Method Nasal Cannula Nasal Cannula Oxygen Flow Rate 4 2 06/10/23 14:30 06/10/23 14:35 06/10/23 14:40 Temperature Pulse Rate Pulse Rate [Pulse Oximeter] 72 56 L 77 Respiratory Rate 18 18 20 Blood Pressure Blood Pressure [Left Arm] 95/52 L 96/63 102/85 Pulse Oximetry 95 95 93 Oxygen Delivery Method Nasal Cannula Room Air Nasal Cannula Oxygen Flow Rate 2 2 2 06/10/23 14:45 06/10/23 14:50 06/10/23 15:00 Temperature 97.4 F L 97.4 F L Pulse Rate Pulse Rate [Pulse Oximeter] 83 96 65 Respiratory Rate 20 20 20 Blood Pressure Blood Pressure [Left Arm] 172/71 H 167/104 H 186/83 H Pulse Oximetry 98 94 94 Oxygen Delivery Method Nasal Cannula Nasal Cannula Nasal Cannula Oxygen Flow Rate 2 2 06/10/23 15:30 06/10/23 15:45 06/10/23 16:00 Temperature 96.6 F L 96.6 F L 96.9 F L Pulse Rate Pulse Rate [Pulse Oximeter] 74 84 97 Respiratory Rate 14 14 14 Blood Pressure Blood Pressure [Left Arm] 118/69 88/52 L 89/65 L Pulse Oximetry 98 98 98 Oxygen Delivery Method Nasal Cannula Nasal Cannula Nasal Cannula Oxygen Flow Rate 2 2 2 06/10/23 16:15 06/10/23 16:45 06/10/23 17:00 Temperature 96.9 F L 96.9 F L 97.7 F Pulse Rate Pulse Rate [Pulse Oximeter] 98 100 99 Respiratory Rate 14 14 14 Blood Pressure Blood Pressure [Left Arm] 111/60 118/66 96/78 Pulse Oximetry 98 96 93 Oxygen Delivery Method Nasal Cannula Nasal Cannula Nasal Cannula Oxygen Flow Rate 2 2 2 06/10/23 18:00 06/10/23 18:08 06/10/23 18:28 Temperature 98.0 F 98.3 F 97.7 F Pulse Rate 117 H 114 H Pulse Rate [Pulse Oximeter] 118 H Respiratory Rate 14 14 14 Blood Pressure 90/51 L 92/54 L Blood Pressure [Left Arm] 90/51 L Pulse Oximetry 98 93 98 Oxygen Delivery Method Nasal Cannula Oxygen Flow Rate 2 06/10/23 19:00 06/10/23 19:30 06/10/23 20:00 Temperature 97.5 F L 97.5 F L 97.5 F L Pulse Rate 107 H Pulse Rate [Pulse Oximeter] 108 H 98 Respiratory Rate 16 18 18 Blood Pressure 100/67 Blood Pressure [Left Arm] 100/67 104/67 Pulse Oximetry 92 98 Oxygen Delivery Method Nasal Cannula Nasal Cannula Oxygen Flow Rate 2 2 06/10/23 20:47 06/10/23 22:00 06/10/23 23:55 Temperature 98.3 F 98.3 F Pulse Rate 90 Pulse Rate [Pulse Oximeter] 107 H Respiratory Rate 18 18 18 Blood Pressure 110/63 Blood Pressure [Left Arm] 111/61 Pulse Oximetry 98 92 Oxygen Delivery Method Nasal Cannula Oxygen Flow Rate 2 06/11/23 00:00 06/11/23 00:54 06/11/23 01:36 Temperature 97.2 F L Pulse Rate 69 Pulse Rate [Pulse Oximeter] 60 106 H Respiratory Rate 18 Blood Pressure Blood Pressure [Left Arm] 93/53 L 112/77 Pulse Oximetry 94 93 Oxygen Delivery Method Nasal Cannula Oxygen Flow Rate 2 06/11/23 02:00 06/11/23 04:45 06/11/23 04:46 Temperature Pulse Rate 61 104 H Pulse Rate [Pulse Oximeter] 101 H Respiratory Rate 16 Blood Pressure 96/64 Blood Pressure [Left Arm] 108/61 Pulse Oximetry 94 97 96 Oxygen Delivery Method Nasal Cannula Oxygen Flow Rate 2 06/11/23 05:00 06/11/23 05:00 06/11/23 05:15 Temperature 97.6 F Pulse Rate 72 61 Pulse Rate [Pulse Oximeter] 80 Respiratory Rate 16 Blood Pressure Blood Pressure [Left Arm] 96/64 Pulse Oximetry 94 94 94 Oxygen Delivery Method Nasal Cannula Oxygen Flow Rate 2 06/11/23 05:30 06/11/23 05:45 06/11/23 06:00 Temperature Pulse Rate 85 68 78 Pulse Rate [Pulse Oximeter] Respiratory Rate Blood Pressure Blood Pressure [Left Arm] Pulse Oximetry 94 98 94 Oxygen Delivery Method Oxygen Flow Rate 06/11/23 06:01 06/11/23 06:15 06/11/23 06:30 Temperature Pulse Rate 88 84 59 L Pulse Rate [Pulse Oximeter] Respiratory Rate Blood Pressure 117/74 Blood Pressure [Left Arm] Pulse Oximetry 94 86 L 95 Oxygen Delivery Method Oxygen Flow Rate 06/11/23 07:00 06/11/23 07:00 06/11/23 07:55 Temperature 97.7 F Pulse Rate Pulse Rate [Pulse Oximeter] 98 98 Respiratory Rate 16 16 Blood Pressure Blood Pressure [Left Arm] 97/72 Pulse Oximetry 96 96 Oxygen Delivery Method Nasal Cannula Oxygen Flow Rate 2 Assessment and Plan Assessment and plan (1) Postoperative hypovolemic shock: Problem details: 06/10/2023: Perioperative systolic blood pressures 60-70 mmHg. IV crystalloids administered. Later started on norepinephrine drip. Status: Acute (2) Postoperative anemia due to acute blood loss: Problem details: Preop hemoglobin on 06/02/2023 was 12.7 mg/dL. Postop hemoglobin on 06/10/2023 was 9.4 at noon. Postop hemoglobin on 06/10/2023 was 9.9 at 3:00 p.m. Status: Acute (3) S/P total right hip arthroplasty: Problem details: 06/10/2023 Status: Acute Assessment and Plan: Plan for discharge is today to home with her daughter when she meets discharge criteria, likely tomorrow or the following day.. DVT prophylaxis includes Xarelto 20 mg which is her usual dose for AFib. This is currently being held. Scott stockings x1 month may remove for 1 hr per day, frequent ambulation Remove dressing 1 week. Observe wound and phone Orthopedics with any questions or concerns Use Ice on operative hip unrestricted. Return to clinic in 1 week with PA for a wound check Return to clinic in 6 weeks with surgeon Minimize narcotic use. Wean off and discontinue soon as possible. Activities as tolerated. No strenuous activity. Attend outpt PT (4) Paroxysmal atrial fibrillation: Problem details: 06/10/2023 in normal sinus rhythm Status: Acute (5) Chronic anticoagulation: Problem details: For paroxysmal atrial fibrillation with rivaroxaban. Last dose of rivaroxaban was 06/06/2023 prior to surgery on 06/10/2023. Status: Acute (6) Non-rheumatic mitral regurgitation: Status: Acute
[2023-06-11] MEDS: SENNOSIDES 1 TAB TABLET 2 TAB PO (09:38)
[2023-06-11] MEDS: OMEPRAZOLE 20 MG CAPSULE DR PO (09:39)
[2023-06-11] MEDS: MAGNESIUM IV 2 GM/50 ML PIGGYBACK IVPB ×2 (11:04→17:14)
--- NOTE | 2023-06-11 11:05 | P.IMPN_ITS ---
Progress Note: A&P Assessment and plan (1) Postoperative hypovolemic shock: Problem details: 06/10: -in setting of 1 L blood loss -on chronic anticoagulation with rivaroxaban 20 mg daily, last dose 06/06/23 prior to surgery -perioperative systolic blood pressures 60-70 mmHg. 3 L IV crystalloids administered in PACU. Central line placed by General surgery -admitted to CCU and started on norepinephrine drip, SBP rebounded to 190s - norepinephrine drip discontinued 06/10/23 -received 1 unit PRBC and maintenance fluids 06/11: -discontinue maintenance IVF. Continue with NS bolus p.r.n.. Encourage oral fluids -General Surgery contacted to remove central line -remove indwelling Vargas catheter, continue to monitor urine output, I&Os, daily weights -recheck hemoglobin, hold apixaban, replace magnesium -wean oxygen supplementation as able -transfer to Med Surg status Status: Acute (2) Postoperative anemia due to acute blood loss: Problem details: -Preop hemoglobin on 06/02/2023 was 12.7 mg/dL. -Postop hemoglobin on 06/10/2023 was 9 9, 9.4, 9.1 -received 1 unit PRBC -recheck hemoglobin at noon Status: Acute (3) S/P total right hip arthroplasty: Problem details: -POD#1 -pain management and perioperative cares per Orthopedic surgery. Monitor for sedation -rivaroxaban held. Recommend adjusting dose to 15 mg daily for CrCL 34 when restarting it Status: Acute (4) Paroxysmal atrial fibrillation: Problem details: -on beta-juan manuel and chronic anticoagulation -EKG shows AFib with controlled rate this morning. Has flipped in and out of NSR overnight -metoprolol ordered with parameters (holding for SBP <100). Heart rate 59-98 -rivaroxaban held in setting of blood loss with hypovolemic shock -when restarting rivaroxaban, adjust dose to 15 mg daily for CrCL 34 Status: Acute (5) Hypertension: Problem details: -hypotensive in setting of hypovolemic shock -lisinopril and Norvasc held. Metoprolol with parameters Status: Chronic (6) Hypomagnesemia: Problem details: -magnesium 1.0. Supplement with Mag sulfate 2 g IV, recheck in a.m. Status: Acute Plan CODE: Full VTE PPX: SCDs, chemical prophylaxis contraindicated Disposition: Inpatient, possible discharge 06/12/2023 Time Spent With Patient Total time spent: Total time spent caring for the patient today was 45 minutes. This includes time spent for the visit reviewing the chart, time spent during the visit, time spent after the visit and documentation and planning in coordination of care. Subjective Date Seen: 06/11/23 Interval history: Patient is doing well this morning following hypovolemic shock with blood loss anemia status post right total hip arthroplasty. She has been up ambulating. Pain is adequately managed. Denies headache or dizziness. Denies chest pain or shortness of breath. Continues to require 2 L per N/C. Tolerating orals without nausea vomiting though has not been drinking much fluid this morning. No events reported overnight. Systolic pressures have been 95-117. No tachycardia. Still on 2 L per NC. Urine output adequate during resuscitation, has decreased this morning. Exam Narrative: Exam Narrative: PHYSICAL EXAM General: Sitting up in chair, very pleasant, conversant, smiling, NAD HEENT: Normocephalic, atraumatic, sclera white, EOMI, oral mucosa moist Cardiovascular: IRRR. No pitting edema Pulmonary: CTA bilaterally without rhonchi, rales, expiratory wheezes. No dyspnea on 2 L NC Abdominal: Soft, nondistended, NTTP Neurological: Alert, answering questions appropriately, cranial nerves intact, no focal findings Extremities: No gross joint deformity or swelling. Postoperative dressing in place, clean dry. AROMI. Neurovascularly intact Skin: Warm, dry. Const: Vital Signs, click to edit/add: Vital Signs - 24 hr 06/10/23 11:08 06/10/23 11:10 06/10/23 11:13 Temperature Pulse Rate 62 63 66 Pulse Rate [Pulse Oximeter] Respiratory Rate 16 16 16 Blood Pressure 82/46 L 76/49 L 80/46 L Blood Pressure [Le ft Arm] Pulse Oximetry 98 99 96 Oxygen Delivery Me thod Nasal Cannula Nasal Cannula Nasal Cannula Oxygen Flow Rate 4 3 2 06/10/23 11:15 06/10/23 11:18 06/10/23 11:20 Temperature Pulse Rate 59 L 59 L 64 Pulse Rate [Pulse Oximeter] Respiratory Rate 16 16 16 Blood Pressure 86/57 L 91/54 L 89/53 L Blood Pressure [Le ft Arm] Pulse Oximetry 98 97 97 Oxygen Delivery Me thod Nasal Cannula Nasal Cannula Nasal Cannula Oxygen Flow Rate 2 2 2 06/10/23 11:23 06/10/23 11:25 06/10/23 11:28 Temperature Pulse Rate 59 L 73 66 Pulse Rate [Pulse Oximeter] Respiratory Rate 16 16 16 Blood Pressure 77/51 L 101/54 L 84/51 L Blood Pressure [Le ft Arm] Pulse Oximetry 99 98 95 Oxygen Delivery Me thod Nasal Cannula Nasal Cannula Nasal Cannula Oxygen Flow Rate 2 2 2 06/10/23 11:30 06/10/23 11:35 06/10/23 11:38 Temperature Pulse Rate 67 60 65 Pulse Rate [Pulse Oximeter] Respiratory Rate 16 16 16 Blood Pressure 82/49 L 85/51 L 71/49 L Blood Pressure [Le ft Arm] Pulse Oximetry 99 99 100 Oxygen Delivery Me thod Nasal Cannula Nasal Cannula Nasal Cannula Oxygen Flow Rate 2 4 4 06/10/23 11:40 06/10/23 11:43 06/10/23 11:45 Temperature Pulse Rate 74 69 67 Pulse Rate [Pulse Oximeter] Respiratory Rate 16 20 18 Blood Pressure 81/59 L 93/47 L 85/48 L Blood Pressure [Le ft Arm] Pulse Oximetry 100 100 99 Oxygen Delivery Me thod Nasal Cannula Nasal Cannula Nasal Cannula Oxygen Flow Rate 4 4 4 06/10/23 11:48 06/10/23 11:50 06/10/23 11:53 Temperature Pulse Rate 64 80 76 Pulse Rate [Pulse Oximeter] Respiratory Rate 16 16 16 Blood Pressure 76/46 L 83/45 L 85/47 L Blood Pressure [Le ft Arm] Pulse Oximetry 97 96 99 Oxygen Delivery Me thod Nasal Cannula Nasal Cannula Nasal Cannula Oxygen Flow Rate 4 4 4 06/10/23 11:57 06/10/23 12:00 06/10/23 12:05 Temperature Pulse Rate 82 63 63 Pulse Rate [Pulse Oximeter] Respiratory Rate 16 16 16 Blood Pressure 104/43 L 77/50 L 106/53 L Blood Pressure [Le ft Arm] Pulse Oximetry 100 99 98 Oxygen Delivery Me thod Nasal Cannula Nasal Cannula Nasal Cannula Oxygen Flow Rate 4 4 4 06/10/23 12:08 06/10/23 12:10 06/10/23 12:12 Temperature Pulse Rate 79 73 80 Pulse Rate [Pulse Oximeter] Respiratory Rate 16 16 16 Blood Pressure 86/47 L 87/52 L 40/21 L Blood Pressure [Le ft Arm] Pulse Oximetry 100 99 98 Oxygen Delivery Me thod Nasal Cannula Nasal Cannula Nasal Cannula Oxygen Flow Rate 4 4 4 06/10/23 12:15 06/10/23 12:18 06/10/23 12:21 Temperature Pulse Rate 80 65 61 Pulse Rate [Pulse Oximeter] Respiratory Rate 16 16 16 Blood Pressure 86/55 L 82/44 L 106/61 Blood Pressure [Le ft Arm] Pulse Oximetry 96 100 100 Oxygen Delivery Me thod Nasal Cannula Nasal Cannula Nasal Cannula Oxygen Flow Rate 4 4 4 06/10/23 12:24 06/10/23 12:27 06/10/23 12:30 Temperature Pulse Rate 69 83 76 Pulse Rate [Pulse Oximeter] Respiratory Rate 16 16 16 Blood Pressure 99/63 87/54 L 105/65 Blood Pressure [Le ft Arm] Pulse Oximetry 99 100 98 Oxygen Delivery Me thod Nasal Cannula Nasal Cannula Nasal Cannula Oxygen Flow Rate 4 4 4 06/10/23 12:33 06/10/23 12:36 06/10/23 12:39 Temperature 97 F L 97 F L Pulse Rate 80 74 90 Pulse Rate [Pulse Oximeter] Respiratory Rate 16 22 16 Blood Pressure 83/49 L 103/62 91/63 Blood Pressure [Le ft Arm] Pulse Oximetry 95 99 96 Oxygen Delivery Me thod Nasal Cannula Nasal Cannula Nasal Cannula Oxygen Flow Rate 4 5 5 06/10/23 12:42 06/10/23 12:45 06/10/23 12:48 Temperature 97 F L 97 F L 97 F L Pulse Rate 80 78 74 Pulse Rate [Pulse Oximeter] Respiratory Rate 17 14 16 Blood Pressure 89/56 L 85/43 L 103/65 Blood Pressure [Le ft Arm] Pulse Oximetry 100 100 98 Oxygen Delivery Me thod Nasal Cannula Nasal Cannula Nasal Cannula Oxygen Flow Rate 4 4 4 06/10/23 12:51 06/10/23 12:54 06/10/23 12:57 Temperature 97 F L 97 F L 97 F L Pulse Rate 82 92 80 Pulse Rate [Pulse Oximeter] Respiratory Rate 16 16 16 Blood Pressure 96/56 L 58/48 L 93/54 L Blood Pressure [Le ft Arm] Pulse Oximetry 100 97 100 Oxygen Delivery Me thod Nasal Cannula Nasal Cannula Nasal Cannula Oxygen Flow Rate 4 4 4 06/10/23 13:00 06/10/23 13:03 06/10/23 13:06 Temperature 97 F L 97 F L 97 F L Pulse Rate 77 87 87 Pulse Rate [Pulse Oximeter] Respiratory Rate 12 14 16 Blood Pressure 93/59 L 86/66 L 86/51 L Blood Pressure [Le ft Arm] Pulse Oximetry 97 99 100 Oxygen Delivery Me thod Nasal Cannula Nasal Cannula Nasal Cannula Oxygen Flow Rate 4 4 4 06/10/23 13:09 06/10/23 13:12 06/10/23 13:15 Temperature 97 F L 97 F L Pulse Rate 68 79 76 Pulse Rate [Pulse Oximeter] Respiratory Rate 15 16 16 Blood Pressure 99/63 87/67 L 87/48 L Blood Pressure [Le ft Arm] Pulse Oximetry 99 98 100 Oxygen Delivery Me thod Nasal Cannula Nasal Cannula Oxygen Flow Rate 4 4 06/10/23 13:18 06/10/23 13:21 06/10/23 13:24 Temperature Pulse Rate 69 85 89 Pulse Rate [Pulse Oximeter] Respiratory Rate 16 16 16 Blood Pressure 103/67 89/54 L 90/61 Blood Pressure [Le ft Arm] Pulse Oximetry 100 98 98 Oxygen Delivery Me thod Oxygen Flow Rate 06/10/23 13:27 06/10/23 13:30 06/10/23 13:33 Temperature Pulse Rate 83 92 96 Pulse Rate [Pulse Oximeter] Respiratory Rate 16 16 16 Blood Pressure 106/59 L 81/63 L 88/59 L Blood Pressure [Le ft Arm] Pulse Oximetry 99 98 98 Oxygen Delivery Me thod Nasal Cannula Oxygen Flow Rate 4 06/10/23 13:36 06/10/23 13:39 06/10/23 13:42 Temperature 96.9 F L Pulse Rate 75 82 76 Pulse Rate [Pulse Oximeter] Respiratory Rate 16 16 16 Blood Pressure 91/53 L 88/52 L 96/54 L Blood Pressure [Le ft Arm] Pulse Oximetry 96 100 100 Oxygen Delivery Me thod Nasal Cannula Oxygen Flow Rate 4 06/10/23 13:45 06/10/23 13:48 06/10/23 13:51 Temperature Pulse Rate 98 101 H 76 Pulse Rate [Pulse Oximeter] Respiratory Rate 16 16 16 Blood Pressure 93/66 99/48 L 100/56 L Blood Pressure [Le ft Arm] Pulse Oximetry 98 100 100 Oxygen Delivery Me thod Oxygen Flow Rate 06/10/23 13:54 06/10/23 13:57 06/10/23 14:00 Temperature 96.9 F L Pulse Rate 89 108 H 78 Pulse Rate [Pulse Oximeter] Respiratory Rate 16 16 16 Blood Pressure 91/68 108/71 105/71 Blood Pressure [Le ft Arm] Pulse Oximetry 100 100 100 Oxygen Delivery Me thod Nasal Cannula Nasal Cannula Oxygen Flow Rate 4 4 06/10/23 14:03 06/10/23 14:06 06/10/23 14:09 Temperature 96.8 F L Pulse Rate 75 63 93 Pulse Rate [Pulse Oximeter] Respiratory Rate 16 16 16 Blood Pressure 107/63 117/97 H 77/43 L Blood Pressure [Le ft Arm] Pulse Oximetry 100 100 97 Oxygen Delivery Me thod Nasal Cannula Oxygen Flow Rate 4 06/10/23 14:11 06/10/23 14:15 06/10/23 14:25 Temperature 96.8 F L Pulse Rate 60 65 101 H Pulse Rate [Pulse Oximeter] Respiratory Rate 16 16 18 Blood Pressure 99/70 83/65 L Blood Pressure [Le ft Arm] 86/54 L Pulse Oximetry 98 100 Oxygen Delivery Me thod Nasal Cannula Nasal Cannula Oxygen Flow Rate 4 2 06/10/23 14:30 06/10/23 14:35 06/10/23 14:40 Temperature Pulse Rate Pulse Rate [Pulse Oximeter] 72 56 L 77 Respiratory Rate 18 18 20 Blood Pressure Blood Pressure [Le ft Arm] 95/52 L 96/63 102/85 Pulse Oximetry 95 95 93 Oxygen Delivery Me thod Nasal Cannula Room Air Nasal Cannula Oxygen Flow Rate 2 2 2 06/10/23 14:45 06/10/23 14:50 06/10/23 15:00 Temperature 97.4 F L 97.4 F L Pulse Rate Pulse Rate [Pulse Oximeter] 83 96 65 Respiratory Rate 20 20 20 Blood Pressure Blood Pressure [Le ft Arm] 172/71 H 167/104 H 186/83 H Pulse Oximetry 98 94 94 Oxygen Delivery Me thod Nasal Cannula Nasal Cannula Nasal Cannula Oxygen Flow Rate 2 2 06/10/23 15:30 06/10/23 15:45 06/10/23 16:00 Temperature 96.6 F L 96.6 F L 96.9 F L Pulse Rate Pulse Rate [Pulse Oximeter] 74 84 97 Respiratory Rate 14 14 14 Blood Pressure Blood Pressure [Le ft Arm] 118/69 88/52 L 89/65 L Pulse Oximetry 98 98 98 Oxygen Delivery Me thod Nasal Cannula Nasal Cannula Nasal Cannula Oxygen Flow Rate 2 2 2 06/10/23 16:15 06/10/23 16:45 06/10/23 17:00 Temperature 96.9 F L 96.9 F L 97.7 F Pulse Rate Pulse Rate [Pulse Oximeter] 98 100 99 Respiratory Rate 14 14 14 Blood Pressure Blood Pressure [Le ft Arm] 111/60 118/66 96/78 Pulse Oximetry 98 96 93 Oxygen Delivery Me thod Nasal Cannula Nasal Cannula Nasal Cannula Oxygen Flow Rate 2 2 2 06/10/23 18:00 06/10/23 18:08 06/10/23 18:28 Temperature 98.0 F 98.3 F 97.7 F Pulse Rate 117 H 114 H Pulse Rate [Pulse Oximeter] 118 H Respiratory Rate 14 14 14 Blood Pressure 90/51 L 92/54 L Blood Pressure [Le ft Arm] 90/51 L Pulse Oximetry 98 93 98 Oxygen Delivery Me thod Nasal Cannula Oxygen Flow Rate 2 06/10/23 19:00 06/10/23 19:30 06/10/23 20:00 Temperature 97.5 F L 97.5 F L 97.5 F L Pulse Rate 107 H Pulse Rate [Pulse Oximeter] 108 H 98 Respiratory Rate 16 18 18 Blood Pressure 100/67 Blood Pressure [Le ft Arm] 100/67 104/67 Pulse Oximetry 92 98 Oxygen Delivery Me thod Nasal Cannula Nasal Cannula Oxygen Flow Rate 2 2 06/10/23 20:47 06/10/23 22:00 06/10/23 23:55 Temperature 98.3 F 98.3 F Pulse Rate 90 Pulse Rate [Pulse Oximeter] 107 H Respiratory Rate 18 18 18 Blood Pressure 110/63 Blood Pressure [Le ft Arm] 111/61 Pulse Oximetry 98 92 Oxygen Delivery Me thod Nasal Cannula Oxygen Flow Rate 2 06/11/23 00:00 06/11/23 00:54 06/11/23 01:36 Temperature 97.2 F L Pulse Rate 69 Pulse Rate [Pulse Oximeter] 60 106 H Respiratory Rate 18 Blood Pressure Blood Pressure [Le ft Arm] 93/53 L 112/77 Pulse Oximetry 94 93 Oxygen Delivery Me thod Nasal Cannula Oxygen Flow Rate 2 06/11/23 02:00 06/11/23 04:45 06/11/23 04:46 Temperature Pulse Rate 61 104 H Pulse Rate [Pulse Oximeter] 101 H Respiratory Rate 16 Blood Pressure 96/64 Blood Pressure [Le ft Arm] 108/61 Pulse Oximetry 94 97 96 Oxygen Delivery Me thod Nasal Cannula Oxygen Flow Rate 2 06/11/23 05:00 06/11/23 05:00 06/11/23 05:15 Temperature 97.6 F Pulse Rate 72 61 Pulse Rate [Pulse Oximeter] 80 Respiratory Rate 16 Blood Pressure Blood Pressure [Le ft Arm] 96/64 Pulse Oximetry 94 94 94 Oxygen Delivery Me thod Nasal Cannula Oxygen Flow Rate 2 06/11/23 05:30 06/11/23 05:45 06/11/23 06:00 Temperature Pulse Rate 85 68 78 Pulse Rate [Pulse Oximeter] Respiratory Rate Blood Pressure Blood Pressure [Le ft Arm] Pulse Oximetry 94 98 94 Oxygen Delivery Me thod Oxygen Flow Rate 06/11/23 06:01 06/11/23 06:15 06/11/23 06:30 Temperature Pulse Rate 88 84 59 L Pulse Rate [Pulse Oximeter] Respiratory Rate Blood Pressure 117/74 Blood Pressure [Le ft Arm] Pulse Oximetry 94 86 L 95 Oxygen Delivery Me thod Oxygen Flow Rate 06/11/23 07:00 06/11/23 07:00 06/11/23 07:55 Temperature 97.7 F Pulse Rate Pulse Rate [Pulse Oximeter] 98 98 Respiratory Rate 16 16 Blood Pressure Blood Pressure [Le ft Arm] 97/72 Pulse Oximetry 96 96 Oxygen Delivery Me thod Nasal Cannula Oxygen Flow Rate 2 Labs Labs: Laboratory Results - last 24 hr 06/10/23 06/10/23 06/10/23 13:00 15:07 16:49 WBC 18.06 H RBC 3.34 L Hgb 9.9 L Hct 31.7 L MCV 95 MCH 30 MCHC 31 L RDW Coeff of Susan Plt Count 280 Neut % (Auto) Lymph % (Auto) [place] % (Auto) Eos % (Auto) Baso % (Auto) Neut # (Auto) Lymph # (Auto) [place] # (Auto) Eos # (Auto) Baso # (Auto) Abs Immat Gran (auto) Imm/Tot Granulo (auto) Sodium 137 Potassium 3.8 Chloride 105 Carbon Dioxide 25 Anion Gap 7 BUN 17 Creatinine 0.7 Estimated Creat Clear 34.42 Estimated GFR 88 Glucose 186 H Lactate 1.9 Calcium 8.2 L Phosphorus 3.5 Magnesium 1.0 L Troponin I < 0.01 L Albumin 3.1 L Lab Acknowledgement Test Added Blood Type A Positive Antibody Screen NEGATIVE Crossmatch ([facility]) See Detail 06/10/23 06/10/23 06/10/23 16:49 17:46 Unknown WBC RBC Hgb 9.4 L Hct MCV MCH MCHC RDW Coeff of Susan Plt Count Neut % (Auto) Lymph % (Auto) [place] % (Auto) Eos % (Auto) Baso % (Auto) Neut # (Auto) Lymph # (Auto) [place] # (Auto) Eos # (Auto) Baso # (Auto) Abs Immat Gran (auto) Imm/Tot Granulo (auto) Sodium Potassium Chloride Carbon Dioxide Anion Gap BUN Creatinine Estimated Creat Clear Estimated GFR Glucose Lactate Calcium Phosphorus Magnesium Troponin I < 0.01 L Albumin Lab Acknowledgement Test Added Blood Type Antibody Screen Crossmatch ([facility]) 06/11/23 05:58 WBC 11.05 H RBC 3.01 L Hgb 9.1 L Hct 28.2 L MCV 94 MCH 30 MCHC 32 RDW Coeff of Susan 13.8 Plt Count 180 Neut % (Auto) 85.1 H Lymph % (Auto) 6.3 L [place] % (Auto) 8.3 Eos % (Auto) 0.0 Baso % (Auto) 0.1 Neut # (Auto) 9.40 H Lymph # (Auto) 0.70 L [place] # (Auto) 0.90 Eos # (Auto) 0.00 Baso # (Auto) 0.00 Abs Immat Gran (auto) 0.00 Imm/Tot Granulo (auto) 0.2 Sodium 135 Potassium 3.9 Chloride Carbon Dioxide Anion Gap BUN 16 Creatinine 0.8 Estimated Creat Clear 34.42 Estimated GFR 75 Glucose Lactate Calcium Phosphorus Magnesium Troponin I 0.01 Albumin Lab Acknowledgement Blood Type Antibody Screen Crossmatch ([facility]) ECG Attestation: I personally reviewed and interpreted this ECG as follows: Interpretation: Atrial fibrillation, rate 73, QTC 420
--- NOTE | 2023-06-11 13:44 | PC.SOCIAL ---
Discharge planning- Met with pt in room to discuss discharge plans. Pt is discharging tomorrow with her daughter. Pt will stay at her daughters home for 2 weeks. When pt returns home she has a one level home. No social work needs identified. Informed pt if anything was needed she could reach out to social work.
--- NOTE | 2023-06-11 19:04 | PC.NURSE ---
Patient is alert and oriented, dtr at bedside. Patient tolerating reg diet, denies N/V/SOB, chest pain and pain. Patient's colby removed intact, and patient voided indep. Central line also removed, tip intact. Patient tolerated removal well. Patient is up in chair for meals and ambulating room and hallways well. Discharge plan, home tomorrow with dtr.
--- NOTE | 2023-06-11 22:39 | PC.NURSE ---
VSS, RA. Minimal pain- scheduled tylenol & ice pack w/ relief. LS diminished. Hypoactive bowel sounds. Fair appetite, ate 50% of dinner. Drinking well. CMS intact. Voided x2. No BM. Left hip dressing- c/d/i. No drainage noted. PIV in left & right wrist- SL'd, some c/o stinging in left IV. 2 g mag sulfate given x1. Up to bathroom x3, walked in kaur x1. Will continue to monitor, follow POC, and keep pt and family updated. Yue Box RN
[2023-06-11] MEDS: OXYCODONE 5 MG TABLET PO (23:24)
[2023-06-12 01:15] VITALS: BP 135/80; PULSE 77; PULSE 88; RESP 16; TEMP 36.6; O2SAT 91
[2023-06-12 03:40] VITALS: BP 117/89; PULSE 86; RESP 16; TEMP 36.5; O2SAT 91
[2023-06-12] MEDS: ACETAMINOPHEN 500 MG TABLET 1000 MG PO (06:09)
--- NOTE | 2023-06-12 06:24 | PC.NURSE ---
Shift note [id number]: Pt is alert and oriented x3. Afebrile. Pt reports 4/10 pain in right hip, managed with scheduled medications. Pt denies chest pain, SOB and N/V. Pt?s right hip dressing is CDI. Pt is up SBA with walker gait belt. Pt slept throughout most of night. Night uneventful.???
[2023-06-12 06:32] LABS: Basophils Absolute Auto 0.02 K/uL (0.00-0.30); Basophils Percent Auto 0.2 % (0.0-3.0); Eosinophils Absolute Auto 0.23 K/uL (0.00-0.50); Eosinophils Percent Auto 2.4 % (0.0-7.0); Hematocrit 28.4 % (33.0-51.0); Hemoglobin* 9.1 gm/dL (12.0-16.0); Immature Granulocytes Abs Auto 0.02 K/uL (0.00-0.30); Immature Granulocytes Pct Auto 0.2 %; Mean Corpuscular HGB Conc 32 gm/dL (32-36); Mean Corpuscular Hemoglobin 30 pg (26-34); Mean Corpuscular Volume 94 fL (80-100); Monocytes Percent Auto 7.3 % (0.0-11.0); Neutrophils Percent Auto 77.9 % (42.0-72.0); Platelet Count* 164 K/uL (140-440); RDW Coefficient of Variation % 14.4 % (11.5-15.5); Red Blood Count 3.02 m/uL (4.00-5.20); White Blood Count* 9.56 K/uL (4.50-11.00)
[2023-06-12 06:36] LABS: Slide Review Reflex No
[2023-06-12 06:56] LABS: Chloride* 108 mmol/L (96-114); Sodium* 140 mmol/L (135-149)
[2023-06-12 06:57] LABS: Potassium* 3.9 mmol/L (3.6-5.1)
[2023-06-12 06:59] LABS: Anion Gap 6 mEq/L (7-15); Carbon Dioxide* 26 mmol/L (20-32); Creatinine* 0.8 mg/dL (0.5-1.5); Est. Creatinine Clearance* 34.42; Estimated Glomerular Filt Rate 75 ml/min
[2023-06-12 07:00] LABS: Blood Urea Nitrogen* 14 mg/dL (7-30); Calcium* 8.3 mg/dL (8.4-10.6); Glucose* 97 mg/dL (60-115); Magnesium* 2.3 mg/dL (1.5-2.6)
[2023-06-12 07:20] VITALS: PULSE 97
[2023-06-12 08:28] VITALS: BP 122/81; PULSE 95; RESP 18; TEMP 35.9; O2SAT 90
[2023-06-12] MEDS: OXYCODONE 5 MG TABLET PO (08:33)
[2023-06-12] MEDS: OMEPRAZOLE 20 MG CAPSULE DR PO (08:34)
[2023-06-12] MEDS: SENNOSIDES 1 TAB TABLET 2 TAB PO (08:34)
[2023-06-12] MEDS: METOPROLOL SUCCINATE (XL) 50 MG TAB PO (08:34)
--- NOTE | 2023-06-12 08:44 | PM.ORPN ---
Subjective Subjective Date Seen: 06/12/23 Principal diagnosis: Status post right hip replacement Interval history: States she feels well. Some difficulties getting out of bed. Once she gets walking her hip feels good. Ortho Exam Narrative Exam Narrative: The patient is alert and oriented x3, in no acute distress, they are able to converse in a normal speaking voice without obvious hearing loss and with nonlabored breathing. CMS intact, right lower extremity. No calf tenderness. Const Vital Signs, click to edit/add: Vital Signs - 24 hr 06/11/23 11:00 06/11/23 15:00 06/11/23 15:00 Temperature 97.7 F 97.8 F Pulse Rate 82 Pulse Rate [Pulse Oximeter] 82 81 Respiratory Rate 16 14 Blood Pressure [Left Arm] 97/77 113/58 L Pulse Oximetry 91 96 Oxygen Delivery Method Room Air Room Air 06/11/23 15:00 06/11/23 15:00 06/11/23 19:00 Temperature 97.3 F L Pulse Rate Pulse Rate [Pulse Oximeter] 81 79 Respiratory Rate 14 16 Blood Pressure [Left Arm] 119/53 L Pulse Oximetry 95 89 Oxygen Delivery Method Room Air 06/12/23 01:15 06/12/23 01:15 06/12/23 01:15 Temperature Pulse Rate 88 Pulse Rate [Pulse Oximeter] 77 Respiratory Rate 16 Blood Pressure [Left Arm] Pulse Oximetry 91 Oxygen Delivery Method 06/12/23 01:15 06/12/23 03:40 06/12/23 07:20 Temperature 97.8 F 97.7 F Pulse Rate 97 Pulse Rate [Pulse Oximeter] 77 86 Respiratory Rate 16 16 Blood Pressure [Left Arm] 135/80 117/89 Pulse Oximetry 91 91 Oxygen Delivery Method Room Air Room Air 06/12/23 08:28 06/12/23 08:28 Temperature 96.7 F L Pulse Rate Pulse Rate [Pulse Oximeter] 95 Respiratory Rate 18 Blood Pressure [Left Arm] 122/81 Pulse Oximetry 90 90 Oxygen Delivery Method Room Air Assessment and Plan Assessment and plan (1) S/P total right hip arthroplasty: Status: Acute Assessment and Plan: Doing well after right total hip arthroplasty Plan Ready for discharge to home today. Follow up next week as scheduled.
--- NOTE | 2023-06-12 10:28 | PM.DS1 ---
DS: Providers Provider Date Seen: 06/12/23 Date of admission: 06/10/23 15:50 Primary care physician: Melanie Mcgovern DO Admitting Clinician: Gavin Rai MD Consults: Attending Physician on discharge: Spencer Oconnor MD Date of Discharge: 06/12/23 DS: Diagnosis Discharge Diagnosis (1) Postoperative hypovolemic shock: Status: Acute Problem details: Patient had 1000 mL operative blood loss. With this she had hypotension. Postoperatively she received blood transfusion and briefly was on norepinephrine for blood pressure support. With blood and fluids her blood pressure has improved and she has otherwise done very well. Lisinopril is held at discharge but likely can be resume next week (2) Postoperative anemia due to acute blood loss: Status: Acute Problem details: Patient had postoperative anemia secondary to heavy than usual bleeding from hip surgery. Received blood transfusion. Hemoglobin stabilized at 9.1 (3) Hypomagnesemia: Status: Acute Problem details: -magnesium 1.0. Patient takes magnesium supplement at home normally. Cause of hypo magnesium is unknown (4) Hypertension: Status: Chronic Problem details: Postop hypotension. Lisinopril is held at discharge. Probably will need to be restarted at follow-up next week (5) Chronic anticoagulation: Status: Acute Problem details: For paroxysmal atrial fibrillation with rivaroxaban. Patient is on rivaroxaban 20 mg daily. She has stage III kidney disease with a creatinine clearance of 34. Should be switched to rivaroxaban 15 mg daily. Patient tells me that she just refilled her rivaroxaban for 90 days and can not afford the lower dose medicine. At next refill she should get a lower dose of 15 mg daily (6) Paroxysmal atrial fibrillation: Status: Acute Problem details: She has had some AFib during her hospital stay with good rate control (7) S/P total right hip arthroplasty: Status: Acute Problem details: Had significant operative blood loss with hypotension. No other complications and doing well postop DS: Summary Hospital Course Hospital Course: 77-year-old female admitted to the hospital for right total hip arthroplasty. She had excessive intraoperative blood loss of 1 L with hypotension requiring blood transfusion and briefly, norepinephrine. She has subsequently been doing very well. She has made good progress with therapy. She has had good pain control. No other complications. Her lisinopril has been held but other blood pressure medicines have been resumed. She was noted to have a low magnesium of 1.0. She tells me she takes magnesium at home 3 times a day. She does have some chronic diarrhea. The cause of her low magnesium is uncertain. She received IV magnesium here and her magnesium was 2.3 at discharge. Hemoglobin is 9.1 at discharge. She is to follow up in clinic next week with her primary care provider to reassess her magnesium, hemoglobin, blood pressure. Ideally patient would be on rivaroxaban 15 mg daily, renally dosed. Probably will need to restart lisinopril next week. Status at Discharge Functional status at discharge: uses cane/walker Overall status at discharge: patient is progressing back to baseline Time Spent with Patient Time attestation: Total time spent providing and/or coordinating discharge services: 40 minutes Exam Narrative: Exam Narrative: She is alert and appears in no distress. Breathing is unlabored. She is observed to move well with therapy. Const: Vital Signs, click to edit/add: Vital Signs - 24 hr 06/11/23 11:00 06/11/23 15:00 06/11/23 15:00 Temperature 97.7 F 97.8 F Pulse Rate 82 Pulse Rate [Pulse Oximeter] 82 81 Respiratory Rate 16 14 Blood Pressure [Le ft Arm] 97/77 113/58 L Pulse Oximetry 91 [facility] 06/11/23 15:00 06/11/23 15:00 06/11/23 19:00 Temperature 97.3 F L Pulse Rate Pulse Rate [Pulse Oximeter] 81 79 Respiratory Rate 14 16 Blood Pressure [Le ft Arm] 119/53 L Pulse Oximetry 95 89 [facility] 06/12/23 01:15 06/12/23 01:15 06/12/23 01:15 Temperature Pulse Rate 88 Pulse Rate [Pulse Oximeter] 77 Respiratory Rate 16 Blood Pressure [Le ft Arm] Pulse Oximetry 91 Oxygen Delivery Sc thod 06/12/23 01:15 06/12/23 03:40 06/12/23 07:20 Temperature 97.8 F 97.7 F Pulse Rate 97 Pulse Rate [Pulse Oximeter] 77 86 Respiratory Rate 16 16 Blood Pressure [Le ft Arm] 135/80 117/89 Pulse Oximetry 91 91 [facility] Room Air 06/12/23 08:28 06/12/23 08:28 Temperature 96.7 F L Pulse Rate Pulse Rate [Pulse Oximeter] 95 Respiratory Rate 18 Blood Pressure [Le ft Arm] 122/81 Pulse Oximetry 90 90 Oxygen Delivery Me thod Room Air Documenting provider has reviewed patient's vital signs: yes DS: Data Data Completed and Pending Labs on day of discharge: Labs from last 24 hours 06/12/23 06/11/23 06:00 16:02 WBC 9.56 RBC 3.02 L Hgb 9.1 L 10.0 L Hct 28.4 L MCV 94 MCH 30 MCHC 32 RDW Coeff of Susan 14.4 Plt Count 164 Neut % (Auto) 77.9 H Lymph % (Auto) 12.0 L Beauregard % (Auto) 7.3 Eos % (Auto) 2.4 Baso % (Auto) 0.2 Neut # (Auto) 7.40 H Lymph # (Auto) 1.10 Bea[place]gard # (Auto) 0.70 Eos # (Auto) 0.23 Baso # (Auto) 0.02 Abs Immat Gran (auto) 0.02 Imm/Tot Granulo (auto) 0.2 Sodium 140 Potassium 3.9 Chloride 108 Carbon Dioxide 26 Anion Gap 6 L BUN 14 Creatinine 0.8 Estimated Creat Clear 34.42 Estimated GFR 75 Glucose 97 Calcium 8.3 L Magnesium 2.3 Discharge Plan Discharge Disposition: Home, Self-Care Date of Admission: 06/10/23 15:50 Consulting Providers: Wendy Corcoran; Physician,[place]; Jovany Miller; Servando Kitchen; Roshni Thacker; Stefania Lewis; Anne Bertrand; Gavin Rai; Ramandeep Coppola; Wilfredo Woodard; Law Javier; Ariel Navarro; Adrian Ty; Latanya Demarco; Don Gore; Cedric Kyle; Chandra Prakash; Yusef Herzog; Titus Barber; Avery Stauffer Primary Care Provider: Melanie Mcgovern Condition: Improved Anticipated Discharge Date/Time: 06/12/23 10:37 Discharge Medications: New sennosides [Senna Lax] 8.6 mg Tablet 17.2 mg PO BID PRN (Reason: constipation) Qty: 100 0RF acetaminophen 500 mg capsule 500 - 1,000 mg PO Q6H MDD 4000mg per day PRN (Reason: pain) Qty: 100 0RF oxycodone 5 mg Tablet 2.5 - 5 mg PO Q4-6H MDD 6 tabs per day PRN (Reason: Pain) Qty: 42 0RF Rx Instructions: Minimize. Discontinue as soon as possible Continued atorvastatin 20 mg tablet 20 mg PO HS Xarelto 20 mg tablet 20 mg PO DAILY omeprazole 20 mg capsule,delayed release(DR/EC) 20 mg PO DAILY amlodipine 2.5 mg tablet 2.5 mg PO DAILY metoprolol succinate 50 mg tablet extended release 24 hr 50 mg PO DAILY alendronate [Fosamax] 70 mg tablet 70 mg PO QWEEK fluticasone propionate 50 mcg/actuation spray,suspension 2 spray INTRANASAL DAILY Discontinued lisinopril 40 mg tablet 40 mg PO DAILY No Action (DME) Walker- 2 Wheels Misc See Rx Instructions .Route Qty: 1 0RF Rx Instructions: As directed Discharge Orders: Discharge Order (Routine); Ordered 06/12/23 Ordered By: Law Javier Patient Education: Acetaminophen (By mouth), Oxycodone, Rapid Release (By mouth), Senna (By mouth) (Sen, Senna-lax), Total Hip Replacement (DC) Additional Instructions: See your doctor next week to recheck your blood pressure, magnesium, hemoglobin and review medications including Xarelto and lisinopril Activity Level: Activity as Tolerated, No strenuous activity and Weight Bearing as Tolerated Activity Detail: Keep dressing on for 1 week. Dressing is waterproof. May shower. Surgical glue covers the wound. Attend outpatient physical therapy if scheduled. Ice and elevate operative extremity without restriction. Wear compression stockings for 1 month post surgery. May remove for 1 hour per day. Ambulate every hour throughout the day. If you drive, Do not drive while taking narcotic pain medication. Do not drink alcohol while taking narcotic pain medication. May drive when safe to do so and have full function of the extremities, this may take 6 weeks or more. Notify Orthopedics with any questions or concerns. ([phone]) Follow Up Appointments: Melanie Mcgovern DO [Primary Care Provider] - 06/16/23 (Follow up in one week to recheck blood pressure and magnesium and hemoglobin) Yamile Delcid MD [Staff Physician] - 06/16/23 10:45 am ([facility] for follow-up and labs.) Forms: Work/School Release
== END 2023-06-12 12:38 | disposition home or self-care (01) | DRG 908 ==
LOC: OR 15:52 → MEDSURG 06-12 07:33
PROVIDERS: Anesthesiology; Physician Assistant; Admitting Provider Internal Medicine; PCP Family Medicine; Visit Provider Orthopaedic Surgery
PROC: 0SR902A Replacement of Right Hip Joint with Metal on Polyethylene Synthetic Substitute, Uncemented, Open Approach (ICD-10-PCS; CPT 27130; principal; 2023-06-10 07:45)
DX: T81.19XA Other postprocedural shock, initial encounter (principal); D62 Acute posthemorrhagic anemia; M96.810 Intraoperative hemorrhage and hematoma of a musculoskeletal structure complicating a musculoskeletal system procedure; Z97.8 Presence of other specified devices; I10 Essential (primary) hypertension; I48.0 Paroxysmal atrial fibrillation; Z79.01 Long term (current) use of anticoagulants; G89.18 Other acute postprocedural pain; E78.2 Mixed hyperlipidemia; I34.0 Nonrheumatic mitral (valve) insufficiency; E83.42 Hypomagnesemia; M16.11 Unilateral primary osteoarthritis, right hip; I95.81 Postprocedural hypotension
CPT/HCPCS: 01214; 36415; 36430; 64450; 71045; 73501; 76000; 76942; 80048; 80069; 82565; 83605; 83735; 84132; 84295; 84484; 84520; 85018; 85025; 85027; 86850; 86900; 86901; 86922; 93005; 94761; 97110; 97116; 97162; 97165; 97530; 97535; 99100; A9270; C1751; C1776; J0330; J0690; J1100; J1170; J1642; J2250; J2371; J2405; J2704; J2710; J2795; J3010; J3475; J7050; J7120; P9016

== ENCOUNTER 2023-08-07 14:00 | Outpatient (RCR) | payer MEDICARE, OTHER, SELFPAY ==
--- NOTE | 2023-05-28 19:38 | PT.OPEX ---
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 Oconnor. Patient has had injections in the past for her hip pains, the last one was in October. The injections were no longer providing long lasting relief. Some days her hip is fine but laying at night is always bad. Some mornings the groin pain is so significant she can't put pressure on the leg. Has had difficulties donning/doffing socks on her right side. Her plan is to stay with her daughter for 2 weeks before going home as she lives alone. Her goal after surgery is to be able to mow her lawn, walk and garden. For additional information on home set up and assistive devices see pre-op PT flowsheet. Pain Comments mild-severe pain Date of Surgery (If applicable) 06/10/23 Current Work Status Retired Objective Other/Pertinent Objective ROM knee ROM WFL as seen with transfers hip flexion limited to 90 degs on R side hip IR + for pain on R side strength: hip flexors L 4-/5 R 3+/5 knee extensors 4-/5 B gait/balance: Patient ambulates with antalgic gait pattern, decreased stance time and WB of RLE, wobbling gait (R trunk lean). Knock knee posture with ambulation palpation/joint mobility: tenderness and increased tone noted in proximal right hip flexor Assessment Assessment/Impression Patient is a 77 year old female presenting for pre op visit prior to R TONY on . Patient has difficulty with ambulation and donning/ doffing socks due to limitations in ROM as well as pain. They will have support from their daughter after surgery as they plan to stay with her for two weeks. Upon assessment patient displays decreased hip ROM, decreased proximal hip strength, hip flexor tightness and antalgic gait pattern. Patient will be seen post operatively to reassess impairments that will be addressed with skilled care. Gabriella would greatly benefit from skilled PT to progress strength, ROM and ambulation post operatively in order to perform all functional mobility and household duties without significant difficulty or discomfort. Primary Functional Limitations donning/doffing socks, walking , laying at night Plan of Care Rehabilitation Potential Good Physical Therapy Goals After pre-op visit: ? Patient will be independent with HEP ? Patient will verbalize knowledge of stair navigation and proper sequencing ? Patient will have knowledge on home adaptations and use of assistive devices post operatively ? Patient will have knowledge of edema management Coordination/Communication With Referral Source Treatment Plan/Direct Interventions Gait Training,Ice/Cold/ Vasopneumatic,Joint Mobilization,Manual Therapy, Neuromuscular Re-ed,Self-Care/ Home Management,Therapeutic Activities,Therapeutic Exercises Frequency/Duration 1x visit prior to surgery on 06/10/23. Patient scheduled to start outpatient PT s/p R TONY on 06/18/23. Has HEP to start with pre-operatively. Patient Will Be Discharged From Therapy Completion of LTG(s), Independent w/HEP Evaluation Billing Untimed Code Treatment Minutes 20 Complexity Low Certification Information Initial Certification Date 05/28/23 Ending Certification Date 08/20/23 Provider Signature Shows Agreement With POC & Medical Necessity Physician Signature & Date Requested Please Sign/Date Here Physician Comment/Change : Physician NPI Number #
== END 2023-08-07 17:00 | disposition home or self-care (01) ==
PROVIDERS: PCP Family Medicine; Visit Provider Orthopaedic Surgery
DX: M16.11 Unilateral primary osteoarthritis, right hip (principal); Z96.641 Presence of right artificial hip joint; Z74.09 Other reduced mobility; R26.2 Difficulty in walking, not elsewhere classified; M25.551 Pain in right hip; Z51.89 Encounter for other specified aftercare
CPT/HCPCS: 97110; 97116; 97161; 97164

== ENCOUNTER 2024-10-28 06:12 | Day surgery (SDC) | payer MEDICARE, OTHER, SELFPAY ==
[2024-10-28] VITALS (8 sets, daily range): BP systolic 118–134; BP diastolic 62–81; PULSE 81–86; RESP 16; TEMP 36.5–36.6; O2SAT 93–99; BMI 30.8
--- OUTSIDE RECORDS SUMMARY | 2024-10-28 06:15 | XMS_ITS | Data Portability ---
Author Organization [place] [facility], [facility] Address [address] [place] [address] Care Team Providers Care Entertainer Or Variety Artist Name Role Phone RONN LEEDS Primary Care Provider Assessment Encounter Date Assessment Date Assessment LastModified by Organization Details LastModified Time 06/29/2021 06/29/2021 75F with multiple left renal masses and hematuria. Biopsy: can't rule out malignancy vs hemorrhagic cyst 1) Left renal mass - hemorrhagic cyst, urothelial cancer, renal cell carcinoma,vs lymphoma - stent removed today - f/u [address] A/P with contrast and urine cytology 2) Meatal stenosis - s/p dilation [email or web address] Not available 06/29/2021 14:49:58 09/19/2021 09/19/2021 76F with multiple left renal masses and hematuria. Likely hemorrhagic cysts; resolving. 1) Left renal mass - Likely hemorrhagic cysts; resolving - f/u CT A/P with contrast in 6 months; can be phone visit to review 2) Meatal stenosis - s/p dilation [email or web address] Not available 09/19/2021 16:24:59 03/25/2022 03/25/2022 76F with multiple left renal masses and hematuria. Likely hemorrhagic cysts; resolving. 1) Left renal mass - Likely hemorrhagic cysts; resolving - f/u renal u/s in 1 year 2) Meatal stenosis - s/p dilation 15 min total time [email or web address] Not available 03/25/2022 17:30:18 04/04/2023 04/04/2023 77F with multiple left renal masses and hematuria. Likely hemorrhagic cysts. 1) Left renal mass/cyst - f/u renal u/s in 1 year 2) Meatal stenosis - s/p dilation - voiding well [email or web address] Not available 04/04/2023 14:30:48 06/25/2024 06/25/2024 78F with multiple left renal masses and hematuria. Likely hemorrhagic cysts. 1) Left renal mass/cyst - these have been stable now - low risk malignancy - can f/u PRN - If develops flank pain, recurrent UTI, or hematuria should come back 2) Meatal stenosis - s/p dilation - voiding well [email or web address] Not available 06/25/2024 14:48:44 Plan of Treatment Reminders Order Date Submit Date Provider Last Modified By Organization Details Last Modified Time Details Appointments None record ed. Lab None record ed. Referral None record ed. Procedures None record ed. Surgeries None record ed. Imaging None record ed. Medication Orders None record ed. Patient TargetsNo targets recorded. Patient InstructionsNo instructions recorded. Reason for Referral None Reported. Results Created Date Observation Date Name Description Value Unit Range Abnormal Flag Note LastModifiedBy Organization Detail LastModifiedTime 06/14/2006/12/2021 imagi ng/di agnos tic resul t No observ ation record ed. [email or web address] Not Available 06/29 17:23:58 09/20/19 22 09/19/2021 CT, chest + abdom en + pelvi s, w/ contr ast No observ ation record ed. [email or web address] Not Available 09/28 17:52:21 03/25/20 22 03/22/2022 CT, abdom en + pelvi s, w/o contr ast No observ ation record ed. [email or web address] Not Available 04/05 18:06:13 03/24/20 23 03/20/2023 US, renal No observ ation record ed. [email or web address] Not Available 2022 10:11:51 02/24/20 24 02/24/2024 US, renal No observ ation record ed. [email or web address], [place], [address], 05/30/2024 21:55:30 Result Notes None recorded. Problems Name Problem SNOMED Code Status Onset Date Resolution Date Notes Provider Name and Address Organization Details Recorded Time Renal mass 949257810 Active 021 Toney aparicio MD, PHD [address] [place] [address],[address], [place], [address] , [facility] 12:18:18 Blood in urine 23490595 Active 021 Toney aparicio MD, PHD [address] [place] [address],[address] [address] , [facility] 12:18:24 Stenosis of urinary meatus 045987447 Active 021 Toney aparicio MD, PHD [address] [place] [address],[address], [place], [address] , [facility] 12:18:33 Problem Notes None recorded. Procedures Surgical History Date Name Laterality Status Provider Name and Address Organization Details Recorded Time 06/29/20 21 Cystoscopy with foreign body/stent removal completed Toney alford MD, PHD [address] [place] [address],[address], [place], [address], [facility] 06/29/2021 14:13:03 04/06/20 21 Cystoscopy- female completed Toney alford MD, PHD [address] [place] [address],[facility] [address], [place], [address], [facility] 04/06/2021 12:15:57 09/01/19 16 colonoscopy completed Aleta Montoya [facility] 06/29/2021 14:38:50 Total Hysterectomy completed Lissy Valencia [facility] 04/06/2021 11:10:48 Imaging Results Imaging Date Name Status LastModified by Organiz ation Details LastModified Time 06/12/2021 imaging/diagn ostic result completed [email or web address] Information not available 06/29/2021 17:23:58 09/19/2021 CT, chest + abdomen + pelvis, w/ contrast completed [email or web address] Information not available 09/28/2021 17:52:21 03/22/2022 CT, abdomen + pelvis, w/o contrast completed [email or web address] Information not available 04/05/2022 18:06:13 03/20/2023 US, renal completed [email or web address] Information no t available 03/24/2023 10:11:51 02/24/2024 US, renal completed [email or web address] Ronn So eld [address], [place], [address], 05/30/2024 21:55:30 Procedure Notes None recorded. Medical Equipment None Reported. Allergies No known drug allergies Medications Name Sig Start Date Stop Date Status Note LastModified by Organization Details LastModified Time atorvastati n 20 mg tablet Take 1 Tablet (20 mg) by mouth at bedtime* active Not Available Not Available No t Available metoprolol succinate ER 50 mg tablet,exte nded release 24 hr TAKE ONE TABLET BY MOUTH ONE TIME DAILY* active Not Available Not Available No t Available alendronate 70 mg tablet Take 1 Tablet (70 mg) by mouth once a week in the morning. Take on empty stomach with full glass of water. Do not lie down for 1 hr* active Not Available Not Available No t Available amlodipine 2.5 mg tablet Take 1 Tablet (2.5 mg) by mouth once daily* active Not Available Not Available No t Available amlodipine 5 mg tablet Take 1 Tablet (5 mg) by mouth once daily. active Not Available Not Available No t Available omeprazole 40 mg capsule,del ayed release 04/04 completed Not Available Not Available Not Available cephalexin 500 mg capsule TAKE ONE CAPSULE BY MOUTH FOUR TIMES DAILY* active Not Available Not Available No t Available lisinopril 30 mg tablet TAKE ONE TABLET BY MOUTH ONE TIME DAILY* active Not Available Not Available No t Available omeprazole 20 mg capsule,del ayed release Take 1 Capsule (20 mg) by mouth once daily before a meal* active Not Available Not Available No t Available clobetasol 0.05 % topical ointment APPLY TOPICALLY TO AFFECTED AREA(S) TWO TIMES DAILY* active Not Available Not Available No t Available lisinopril 40 mg tablet TAKE ONE TABLET BY MOUTH ONE TIME DAILY* active Not Available Not Available No t Available atorvastati n 04/04 completed Not Available Not Available Not Available omeprazole 04/04 completed Not Available Not Available Not Available warfarin 04/04 completed Not Available Not Available Not Available amlodipine 04/04 completed Not Available Not Available Not Available Vitamin D 04/04 completed Not Available Not Available Not Available lisinopril 04/04 completed Not Available Not Available Not Available metoprolol succinate 04/04 completed Not Available Not Available Not Available cetirizine 04/04 completed Not Available Not Available Not Available Calcium 500 04/04 completed Not Available Not Available Not Available Slow-Mag 71.5 mg tablet,duke yed release TAKE THREE TABLETS BY MOUTH DAILY* active Not Available Not Available No t Available Xarelto 15 mg tablet TAKE ONE TABLET BY MOUTH IN THE EVENING WITH A MEAL* active Not Available Not Available No t Available Xarelto 20 mg tablet TAKE ONE TABLET BY MOUTH ONE TIME DAILY with evening meal.* active Not Available Not Available No t Available fluticasone 0.05 % lotion-emol lient combo no.65 cream, topical kit 04/04 completed Not Available Not Available Not Available Vitals Date Recorded Body height Body mass index (BMI) Body weight Respiratory rate Provider Name and Address Organization Details Last Updated DateTime 03/25/2022 154.94 cm 30.8 kg/m2 56153.56 g 16 /min Jennifer Jung [facility] 03/25/2022 16:48:59 Date Recorded Body height Body mass index (BMI) Body weight Provider Name and Address Organization Details Last Updated DateTime 04/04/2023 154.94 cm 32.7 kg/m2 19895.48 g Toney alford MD, PHD [address] [place] [address], [phone] [place] [address] 04/04/2023 13:47:15 Date Recorded Body height Body mass index (BMI) Body weight Provider Name and Address Organization Details Last Updated DateTime 06/25/2024 154.94 cm 32.7 kg/m2 53152.48 g Toney alford MD, PHD [address] [place] [address], [phone] [place] [address] 06/25/2024 14:28:34 Date Recorded Body height Body mass index (BMI) Body weight Provider Name and Address Organization Details Last Updated DateTime 06/29/2021 154.94 cm 30.8 kg/m2 47637.56 g Aleta Montoya [facility] 06/29/2021 14:38:30 Date Recorded Body height Body mass index (BMI) Body weight Provider Name and Address Organization Details Last Updated DateTime 09/19/2021 154.94 cm 30.8 kg/m2 67312.56 g Charley Moore [facility] 09/19/2021 15:52:11 Social History Question Answer Notes LastModified by Organizat ion Details LastModified Time Tobacco Smoking Status [facility]/06/2021 11:10:35 What Is Your Level Of Alcohol Consumption? Occasional Information not available 04/04/2023 How Many Times Per Week Do You Consume Alcohol? Less Than 1 Time Per Week Information not available 04/04/2023 What Was The Date Of Your Most Recent Tobacco Screening? 06/25/2024 Information not available 06/25/2024 Has Tobacco Cessation Counseling Been Provided? No Information not available 04/04/2023 Do You Or Have You Ever Used Any Other Forms Of Tobacco Or Nicotine? No Information not available 04/04/2023 Sex: Unknown Functional Status None recorded. Mental Status None recorded. Family History Relationship Description Onset Age of this Age Resolved Age Notes LastModified by Organization Details LastModified Time Father No current problems or disability [email or web address] Not available 04/06 11:10:19 Mother No current problems or disability [email or web address] Not available 04/06 11:10:19 Medical History Condition Response Other N High Blood Pressure Y Kidney Stones N Depression N Lung Disease N GERD/Acid Reflux Y Sexually Transmitted Infection N Cancer N High Cholesterol Y Diabetes N Bleeding Disorder N Heart Disease N Gynecological History Statement/Question Response Irregular periods N Leaking urine with intercourse N Hormone Therapy N Heavy periods N Pain with intercourse N Sexually Active? N Obstetrics History GPAL:G 5 P 0 0 0 0 Immunizations Vaccine Type Date Status Note Provider Nam e and Address Organization Details Recorded Time Influenza, adjuvanted, trivalent, PF 7 completed Toney Shaw MD, PHD [address] [place] [address],[place] [address], [place], [address], [facility] 04/04/2023 13:47:19 Influenza, adjuvanted, trivalent, PF 8 completed Toney Shaw MD, PHD [address] [place] [address], [address], [facility] 04/04/2023 13:47:19 Influenza, adjuvanted, trivalent, PF 9 completed Toney Shaw MD, PHD [address] [place] [address], [address], [facility] 04/04/2023 13:47:19 Influenza, adjuvanted, quadrivalent, PF 0 completed Toney Shaw MD, PHD [address] [place] [address], [address], [facility] 04/04/2023 13:47:19 Influenza, adjuvanted, quadrivalent, PF 1 completed Toney Shaw MD, PHD [address] [place] [address], [address], [facility] 04/04/2023 13:47:19 COVID-19, mRNA, LNP-S, PF, 30 mcg/0.3 mL dose 1 completed Toney Shaw MD, PHD [address] [place] [address],[address], [address], [facility] 04/04/2023 13:47:19 COVID-19, mRNA, LNP-S, PF, 30 mcg/0.3 mL dose 1 completed Toney Shaw MD, PHD [address] [place] [address],[facility] [address], [place], [address], [facility] 04/04/2023 13:47:19 COVID-19, mRNA, LNP-S, PF, 30 mcg/0.3 mL dose 1 completed Toney Shaw MD, PHD [address] [place] [address],[address], [address], [facility] 04/04/2023 13:47:19 pneumococcal polysaccharide PPV23 9 completed Toney Shaw MD, PHD [address] [place] [address],[place] [address], [place], [address], [facility] 04/04/2023 13:47:19 Pneumococcal conjugate PCV 13 5 completed Toney Shaw MD, PHD [address] [place] [address],[place] [address], [place], [address], [facility] 04/04/2023 13:47:19 zoster live 7 completed Toney Shaw MD, PHD [address] [place] [address],[place] [address], [place], [address], [facility] 04/04/2023 13:47:19 Influenza, high-dose, trivalent, PF 4 completed Toney Shaw MD, PHD [address] [place] [address],[place] [address], [place], [address], [facility] 04/04/2023 13:47:19 Influenza, high-dose, trivalent, PF 5 completed Toney Shaw MD, PHD [address] [place] [address],[facility] [address], [place], [address], [facility] 04/04/2023 13:47:19 Influenza, high-dose, trivalent, PF 6 completed Toney Shaw MD, PHD [address] [place] [address],[facility] [address], [place], [address], [facility] 04/04/2023 13:47:19 Influenza, split virus, trivalent, preservative 3 completed Toney Shaw MD, PHD [address] [place] [address],[facility] [address], [place], [address], [facility] 04/04/2023 13:47:19 Influenza, split virus, trivalent, preservative 2 completed Toney Shaw MD, PHD [address] [place] [address],[facility] [address], [place], [address], [facility] 04/04/2023 13:47:19 Influenza, split virus, trivalent, PF 1 completed Toney Shaw MD, PHD [address] [place] [address],[address], [address], [facility] 04/04/2023 13:47:19 Influenza, split virus, trivalent, PF 0 completed Toney Shaw MD, PHD [address] [place] [address],[address], [address], [facility] 04/04/2023 13:47:19 Td (adult), 5 Lf tetanus toxoid, preservative free, adsorbed 0 completed Toney Shaw MD, PHD [address] [place] [address],[address], [address], [facility] 04/04/2023 13:47:19 Past Encounters Encounter ID Performer Location Encounter Start Date Encounter Closed Date Diagnosis/Indication Diagnosis SNOMED-CT Code Diagnosis ICD10 Code Diagnosis Note [id number] Toney aparicio MD, PHD [facility] [address] [place] [address] 04/06/2021 10:50:58 04/11/2021 11:37:26 Renal mass 303826990 N28.89 Blood in urine 27865903 R31.9 Stenosis o f urinary meatus 581900976 N35.92 [id number] Toney aparicio MD, PHD [facility] [address] [place] [address] 06/29/2021 14:28:02 07/02/2021 10:39:51 Renal mass 698812535 N28.89 Blood in urine 43252190 R31.9 Stenosis o f urinary meatus 190181978 N35.92 [id number] Toney aparicio MD, PHD [facility] [address] [place] [address] 09/19/2021 15:45:45 09/24/2021 09:10:53 Renal mass 947319590 N28.89 Blood in urine 73068913 R31.9 Stenosis o f urinary meatus 401533186 N35.92 [id number] Toney aparicio MD, PHD [facility] [address] [place] [address] 03/25/2022 16:46:55 03/27/2022 08:04:08 Renal mass 673350952 N28.89 Blood in urine 66347932 R31.9 Stenosis o f urinary meatus 130836099 N35.92 [id number] Toney aparicio MD, PHD [facility] [address] [place] [address] 04/04/2023 13:30:12 04/10/2023 15:24:46 Renal mass 945033445 N28.89 Blood in urine 66022281 R31.9 Stenosis o f urinary meatus 392899035 N35.92 [id number] Toney aparicio MD, PHD [facility] [address] [place] [address] 06/25/2024 14:23:44 06/30/2024 09:36:17 Renal mass 589187816 N28.89 Blood in urine 04211225 R31.9 Stenosis o f urinary meatus 189064418 N35.92 Health Concerns Section Related Observation LastModified by Organization Detai ls LastModified Time None Recorded Concern Status LastModified by Organization Details LastModified Time None Recorded Advance Directives Directive None Recorded Payers Encounter Date Sequence Insurance Name Policy Number Policy Haskins Covered Member ID Haskins Member ID Guarantor Name 06/29/2021 1 [employer] - PRIME SOLUTION (MEDICARE REPLACEMENT/ ADVANTAGE - HMO) [id number] Gabriella Rg [id number] Gabriella Rg 09/19/2021 1 [employer] - PRIME SOLUTION (MEDICARE REPLACEMENT/ ADVANTAGE - HMO) [id number] Gabriella Rg [id number] Gabriella Rg 03/25/2022 1 [employer] - PRIME SOLUTION (MEDICARE REPLACEMENT/ ADVANTAGE - HMO) [id number] Gabriella Rg [id number] Gabriella Rg 04/04/2023 1 [employer] - PRIME SOLUTION (MEDICARE REPLACEMENT/ ADVANTAGE - HMO) [id number] Gabriella Rg [id number] Gabriella Rg 06/25/2024 1 [employer] - PRIME SOLUTION (MEDICARE REPLACEMENT/ ADVANTAGE - HMO) [id number] Gabriella Rg [id number] Gabriella Rg Notes Date Note Type Note Provider Name and Address Organization Details Recorded Time 06/29/2021 text/html 75F with left re nal masses. Voiding better since meatal dilation. Some urgency. Initially presented with central abdominal pain and hematuria 03/01. Was treated for UTI. CT showed left renal mass. 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 Had biopsy: Possible hemorrhagic cyst. Here for interval imaging. No recent flank pain or hematuria. Cytology (04/06/21): NEM Voiding better since meatal dilation. Some urgency. Initially presented with central abdominal pain and hematuria 03/01. Was treated for UTI. CT showed left renal mass. 06/05/21: meatal dilation, Left RPG neg, attempted left URS- unable to place scope, stent /12/21: left renal mass bx: path: adipose with vascularity LUTS: weak stream, difficulty initiating stream Imaging (reviewed):03/02/21 CT A/P: 3.7 cm LUP and 4.7 cm LLP renal mass vs hemorrhagic cyst vs TCC03/08/21 MRI abd: multiple masses left kidney, no renal vein thrombus, no LAD09/19/21 CT C/A/P: mult resolving and smaller proteinaceous/hemorrh agic inflammatory renal cysts including parapelvic cysts , unlikely malignant masses to my read Labs (reviewed):Cr 0.82, Hgb 12.5 PMH: Anxiety, HL, AFib, HTNPSH: Hyst, riya 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 Had biopsy: Possible hemorrhagic cyst. Here for interval imaging. No recent flank pain or hematuria. Cytology (04/06/21): NEM Voiding better since meatal dilation. Some urgency. Initially presented with central abdominal pain and hematuria 03/01/2021. Was treated for UTI. CT showed left renal mass. 06/05/21: meatal dilation, Left RPG neg, attempted left URS- unable to place scope, stent ncljef18/12/21: left renal mass bx: path: adipose with vascularity LUTS: moderate stream Imaging (reviewed):03/02/21 CT A/P: 3.7 cm LUP and 4.7 cm LLP renal mass vs hemorrhagic cyst vs TCC03/08/21 MRI abd: multiple masses left kidney, no renal vein thrombus, no LAD09/19/21 CT C/A/P: mult resolving and smaller proteinaceous/hemorrh agic inflammatory renal cysts including parapelvic cysts , unlikely malignant masses to my read03/22/22: CT A/P: mult resolving and smaller proteinaceous/hemorrh agic renal cysts including parapelvic cysts: LUP now 1.4 cm, LLP now 1.4 cm Labs (reviewed):Cr 0.82, Hgb 12.5 PMH: Anxiety, HL, AFib, HTNPSH: Hyst, riya 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 Prior to conducting our telephone visit, the patient was apprised of the risks, benefits and alternatives to telephone visits including but not limited to poor audio quality, interrupted visits due to technological limitations, delays in medical evaluation and treatment due to deficiencies or failures of equipment, failure of security protocols resulting in a breach of privacy of personal medical information and a lack of access to complete medical records resulting in not fully informed decisions. Also, because of the COVID-19 pandemic, it was not possible for the patient to sign the privacy regulations, HIPAA release and assignment of benefits forms. The patient was given the opportunity to ask questions about these policies and gave verbal acknowledgement and approval of these policies as well as to hold this meeting by telephone. Lastly, the patient agreed to allowing their medication history to be pulled from a national pharmacy database to facilitate and coordinate their care. Toney Shaw MD, PHD [address] [place] [address],[address], [place], [address], [facility] 03/25/2022 17:30:30 04/04/2023 text/html 77F with left re nal mass. Had biopsy: Possible hemorrhagic cyst. Here for interval imaging. No recent flank pain or hematuria. Cytology (04/06/21): NEM Voiding better since meatal dilation. Some urgency. Initially presented with central abdominal pain and hematuria 03/01/2021. Was treated for UTI. CT showed left renal mass. 06/05/21: meatal dilation, Left RPG neg, attempted left URS- unable to place scope, stent /12/21: left renal mass bx: path: adipose with vascularity LUTS: moderate stream Imaging (reviewed):03/02/21 CT A/P: 3.7 cm LUP and 4.7 cm LLP renal mass vs hemorrhagic cyst vs TCC03/08/21 MRI abd: multiple masses left kidney, no renal vein thrombus, no LAD09/19/21 CT C/A/P: mult resolving and smaller proteinaceous/hemorrh agic inflammatory renal cysts including parapelvic cysts , unlikely malignant masses to my read03/22/22: CT A/P: mult resolving and smaller proteinaceous/hemorrh agic renal cysts including parapelvic cysts: LUP now 1.4 cm, LLP now 1.4 cm03/20/23: renal u/s: 1.6 cm left renal cyst, no hydro, no solid masses Labs (reviewed):Cr 0.82, Hgb 12.5 PMH: Anxiety, HL, AFib, HTNPSH: Hyst, riya 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 Has UTI; starting Abx per PMD. Had biopsy: Possible hemorrhagic cyst. Here for interval imaging. No recent flank pain or hematuria. Cytology (04/06/21): NEM Voiding better since meatal dilation. Some urgency. Initially presented with central abdominal pain and hematuria 03/01/2021. Was treated for UTI. CT showed left renal mass. 06/05/21: meatal dilation, Left RPG neg, attempted left URS- unable to place scope, stent ocbyct13/12/21: left renal mass bx: path: adipose with vascularity LUTS: moderate stream Imaging (reviewed):03/02/21 CT A/P: 3.7 cm LUP and 4.7 cm LLP renal mass vs hemorrhagic cyst vs TCC03/08/21 MRI abd: multiple masses left kidney, no renal vein thrombus, no LAD09/19/21 CT C/A/P: mult resolving and smaller proteinaceous/hemorrh agic inflammatory renal cysts including parapelvic cysts , unlikely malignant masses to my read03/22/22: CT A/P: mult resolving and smaller proteinaceous/hemorrh agic renal cysts including parapelvic cysts: LUP now 1.4 cm, LLP now 1.4 cm03/20/23: renal u/s: 1.6 cm left renal cyst, no hydro, no solid masses02/24/24: renal u/s: stable left renal cysts Labs (reviewed):Cr 0.82, Hgb 12.5 PMH: Anxiety, HL, AFib, HTNPSH: Hyst, riya 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
--- OUTSIDE RECORDS SUMMARY | 2024-10-28 06:15 | XMS_ITS | Clinical Summary ---
Author Organization [facility] [employer] Address [address] [place] [address] Care Team Providers Care Engine Generator Assembler Name Role Phone Melanie Mcgovern DO Primary Care Provider [phone] Toney Shaw MD Unavailable + Allergies No known active allergies Medications MULTIVITAMIN TAB take 1 tablet by oral route once daily with food 0 12/14/19 08 Active Calcium-Cholecalci ferol, D3, (CALCIUM 500 + D, D3,) 500-125 mg-unit Tab Take by mouth. 0 03/26/20 10 Active cholecalciferol (VITAMIN D) 1,000 unit capsule Take 2 capsules by mouth once daily. New dose today. 0 04/08/20 11 Active vit C,O-An-zyvso-lutei n-zeaxan (PreserVision AREDS-2) capsule Take 1 Capsule by mouth once daily. 0 05/07/20 22 Active fluticasone (50 mcg per actuation) nasal solution (FLONASE)Indicatio ns:Chronic cough Inhale 2 Sprays to both nostrils once daily. 48 g 05/29/20 23 Active omeprazole (PRILOSEC) 20 mg Delayed-Release capsuleIndications :Gastric reflux Take 1 Capsule (20 mg) by mouth once daily before a meal 90 Capsule 06/11/20 24 Active Additional Information Patient taking differently:20 mg Oral ONCE DAILY BEFORE A MEAL,prn, Reported on 10/11/2024 amLODIPine (NORVASC) 2.5 mg tabletIndications: Essential hypertension Take 1 Tablet (2.5 mg) by mouth once daily. 90 Tablet 3 10/11/19 25 Active atorvastatin (LIPITOR) 20 mg tabletIndications: Mixed hyperlipidemia Take 1 Tablet (20 mg) by mouth at bedtime. 90 Tablet 3 10/11/19 25 Active clobetasol (TEMOVATE) 0.05 % ointmentIndication s:Lichen sclerosus Apply to affected area nightly x 6wks then 2-3 times a week 60 g 1 10/11/19 25 Active ferrous sulfate 325 mg delayed release tabletIndications: Iron deficiency anemia, unspecified iron deficiency anemia type Take 1 Tablet (325 mg) by mouth once daily with a meal. 90 Tablet 3 10/11/19 25 Active lisinopriL (PRINIVIL; ZESTRIL) 40 mg tabletIndications: HTN (hypertension) Take 1 Tablet (40 mg) by mouth once daily. 30 Tablet 10/11/19 25 Active magnesium chloride (Slow-Mag) 71.5 mg delayed release tabletIndications: Low magnesium level TAKE THREE TABLETS BY MOUTH DAILY 90 Tablet 3 10/11/19 25 Active metoprolol succinate (TOPROL XL) 50 mg sustained-release tabletIndications: Paroxysmal atrial fibrillation (HC) Take 1 Tablet (50 mg) by mouth once daily. Further refills require cardiology appointment 90 Tablet 3 10/11/19 25 Active rivaroxaban (Xarelto) 15 mg tab tabletIndications: Paroxysmal atrial fibrillation (HC) Take 1 Tablet (15 mg) by mouth once daily with evening meal. 90 Tablet 3 10/11/19 25 Active ferrous sulfate 325 mg delayed release tabletIndications: Iron deficiency anemia, unspecified iron deficiency anemia type Take 1 Tablet (325 mg) by mouth once daily with a meal. 90 Tablet 3 05/26/20 21 025 Discontin ued(Reord er (E-cancel not sent)) amLODIPine (NORVASC) 2.5 mg tabletIndications: Essential hypertension Take 1 Tablet (2.5 mg) by mouth once daily. 90 Tablet 3 10/02/19 24 025 Discontin ued(Reord er (E-cancel not sent)) metoprolol succinate (TOPROL XL) 50 mg sustained-release tabletIndications: Paroxysmal atrial fibrillation (HC) Take 1 Tablet (50 mg) by mouth once daily. Further refills require cardiology appointment 90 Tablet 3 10/02/19 24 025 Discontin ued(Reord er (E-cancel not sent)) clobetasol (TEMOVATE) 0.05 % ointmentIndication s:Lichen sclerosus APPLY TOPICALLY TO AFFECTED AREA(S) TWO TIMES DAILY 60 g 03/07/20 24 025 Discontin ued(Reord er (E-cancel not sent)) lisinopriL (PRINIVIL; ZESTRIL) 40 mg tabletIndications: HTN (hypertension) TAKE ONE TABLET BY MOUTH ONE TIME DAILY 30 Tablet 09/12/19 25 025 Discontin ued(Reord er (E-cancel not sent)) atorvastatin (LIPITOR) 20 mg tabletIndications: Mixed hyperlipidemia Take 1 Tablet (20 mg) by mouth at bedtime 30 Tablet 09/12/19 25 025 Discontin ued(Reord er (E-cancel not sent)) magnesium chloride (Slow-Mag) 71.5 mg delayed release tabletIndications: Low magnesium level TAKE THREE TABLETS BY MOUTH DAILY 90 Tablet 09/12/19 25 025 Discontin ued(Reord er (E-cancel not sent)) Xarelto 15 mg tab tabletIndications: Paroxysmal atrial fibrillation (HC) TAKE ONE TABLET BY MOUTH IN THE EVENING WITH A MEAL 90 Tablet 09/12/19 25 025 Discontin ued(Reord er (E-cancel not sent)) Active Problems Problem Noted Date Diagnosed Date Stage 3a chronic kidney disease 10/02/2023 Hypomagnesemia 08/16/2021 Overview (01/06/2023): Sent message to nephro after I did further urine testing and he responded PPI's can also cause hypomagnesemia, interesting mechanism and occurs through renal mag wasting. I would just keep her on replacement as long as that is working. If she is refractory to this, then I can see her. But I don't think I would have much to add if Mg is >1.5 on supplement. Stenosis of urinary meatus 04/06/202101/06 Renal mass 04/06/2021 01/06/2023 Paroxysmal atrial fibrillation 11/07/2020 Lichen sclerosus 08/22/2020 Osteopenia 06/27/2018 Overview (06/30/2018): 2013 osteopenia, repeat 3-5 years. Fraxa hip fracture score 2% 2017: worsening osteopenia with fraxa hip fracture score 3.5% so meets criteria for bisphosphonate treatment. Fosamax started 06/30/18 Non-rheumatic mitral regurgitation 06/27/2018 Overview (06/27/2018): Mild on echocardiogram done for murmur 06/2018. Repeat 5 years ACP (advance care planning) 04/08/2011 Overview (05/19/2013): Need to address at next office visit. 04/08/2011; has attended advanced care plan class; has paperwork; thinking about completing; is strongly encouraged to do so. 05/19/2013 Colon polyp 01/30/2011 Overview (09/19/2021): Colonoscopy 12/2010 polyp repeat in 5 years Colonoscopy 09/2021 TA, repeat in 7 years Vitamin D deficiency 03/26/2010 Mixed hyperlipidemia 12/25/2009 Fear of public speaking 09/20/2009 Social anxiety disorder 09/20/2009 Overview (12/25/2009): Workplace accommodations have been made. 12/25/2009 Unspecified essential hypertension 12/14/2007 Routine general medical exam ination at a health care facility 12/14/2007 Overview (12/14/2007): Pap smear 04/22/02-hysterectomy Mammo 12/14/07 Colonoscopy 05/03/05: Recheck 5yrs Resolved Problems Problem Noted Date Diagnosed Date Resolved Date Anticoagulation monitoring, DOAC 09/25/2021 02/03/2023 Encounters Date Type Department Care Team Description 10/21/2024 9:35 AM SOCIAL SCIENCE PROFESSOR Office Visit [facility] [address] [place] [address] Melanie Mcgovern DO Derm Problem (Excisional biopsy left arm) 10/21/2024 Travel 10/16/2024 Travel 10/13/2024 Telephone [facility] [address] [place] [address] Melanie Mcgovern DO Results 10/11/2024 11:15 AM SOCIAL SCIENCE PROFESSOR Office [facility] [address] [facility] [address] Melanie Mcgovern DO Medicare ANNUAL (subsequent) Visit (79 year old medicare); Physical; Medication Management (xarelto) 10/11/2024 Travel 10/06/2024 Travel 10/04/2024 11:00 AM SOCIAL SCIENCE PROFESSOR Ancillary Procedure [facility] [address] [facility] [address] 10/04/2024 10:45 AM SOCIAL SCIENCE PROFESSOR Orders Only [facility] [place] [address] Lab, [place] [facility] 10/04/2024 Travel 09/29/2024 Travel 09/09/2024 Refill [facility] [address] [place] [facility] [place] [address] Melanie Mcgovern DO Refill Request (Lisinopril, Atorvastatin, Slow-mag, Xarelto) 2024 Telephone [facility] [address] [facility] [place] [address] Melanie Mcgovern DO BLOOD PRESSURE READINGS 08/06/2024 Telephone [facility] [address] [facility] [address] Melanie Mcgovern DO LAB ORDER from Last 3 Months Immunizations Name Administration Dates Next Due COVID-19 VACCINE SPIKEVAX (M ODERNA 50MCG/0.5ML) 12YO+ PFS 05/30/2023 COVID-19 vaccine (Pfizer-Bio NTech 30mcg/0.3mL) 12YO+ BIVALENT PF, MDV 06/18/2022 COVID-19 vaccine (Pfizer-Bio NTech 30mcg/0.3mL) PF, MDV 10/25/2020,10/04/2020 Influenza, High-dose Inactivated 024,06/12/2016,06/08/2015,05/25 Influenza, High-dose Quadriv alent Inactivated 05/30/2023 Influenza, IIV3 (Age 6-35 mos) 06/19/2011,2009 Influenza, IIV3 (Age >=3 years) 05/19/20 13,08/06/2012,06/19/2011,07/02,08/01/2009,07/02/2008,07/02/2007 Influenza, Inactivated AIIV4 (Age 65+ Years) Preserv Free 06/18/2022,05/24/2021,05/10/2020 Influenza, Inactivated IIV3 (Age 65+ Years) Preserv Free 06/21/2019,06/18/2018,06/16/2017 Pneumococcal Poly,23-Valent (Pneumovax) 12/19/2008 Pneumococcal conj 13-Valent (Prevnar 13) 06/08/2015 RSV, Recombinant ADJ Reconst ituted (Arexvy 120MCG/0.5mL) 10/20/2023 Td (Age >=7 Years) 10/22/1999 Td, Preservative Free (age >= 7 Years) 0 Tdap 03/15/2022 Zoster (Shingrix-RZV, recombinant) 08/01/2022, Zoster (Zostavax-ZVL, live) 04/27/2007 Family History * Patient is adopted Medical History Relation Name Comments Cancer-breast No Family History Cancer-ovarian No Family History Relation Name Status Comments Brother 1 Dandy Alive Brother 2 Sam Alive Father Soledad Rowe (Age 82) Mother Zoila Rowe Alive Pt was adop anusha: these family members are in the family into which she was adopted Social History Tobacco Use Types Packs/Day Years Used Date Smoking Tobacco: Never Passive Smoke Exposure: Never Smokeless Tobacco: Never Tobacco Cessation:Counseling Given: Yes Alcohol Use Standard Drinks/Week Comments Yes 0 (1 standard drink = 0.6 oz pur e alcohol) 1 drink twice yearly PHQ-2 Answer Date Recorded PHQ-2 TOTAL SCORE 0 10/11/2024 Social Connections Answer Date Recorded Do you often feel lonely or isolated from those around you? 0 06/22/2024 Alcohol Use Answer Date Recorded How often do you have a drink containing alcohol ? 1 04/04/2022 How many drinks containing a lcohol do you have on a typical day when you are drinking? 0 04/04/2022 How often do you have five or more drinks on one occasion? 0 04/04/2022 Financial Resource Strain Answer Date R ecorded Difficulty of Paying Living Expenses 3 06/22/2024 Difficulty of Paying Living Expenses Not on file 06/22/2024 Food Insecurity Answer Date Recorded Do you worry your food will run out before you are able to buy more? 1 06/22/2024 Transportation Needs Answer Date Record ed Does lack of transportation keep you from medica l appointments? 1 06/22/2024 Does lack of transportation keep you from work, meetings or getting things that you need? 1 06/22/2024 Housing Stability Answer Date Recorded What is your housing situation today? 1 06/22/2024 Utilities Answer Date Recorded Do you have trouble paying f or utilities (for example, heat, electricity, water, phone)? 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 Not on yelena e Not on file Not on file Obstetrics History Para Term AB IAB SAB Ectopic Multiple Livin g Live Births 5 5 0 0 0 0 0 0 0 4 4 Date Outcome GA Total Labor Labor/2nd/3rd Weight Sex Type Anes PTL Carol A1 A5 Name Clin Para Living Para Living Para Living Para Living Para Comments:farm accid @ 2yo Last Filed Vital Signs Vital Sign Reading Time Taken Comments Blood Pressure 128/80 10/21/2024 9:43 AM SOCIAL SCIENCE PROFESSOR Pulse 81 10/21/2024 9:43 AM SOCIAL SCIENCE PROFESSOR Temperature 36.5 C (97.7 F) 06/22/2024 11:56 AM CDT Respiratory Rate 16 06/12/2021 2:30 PM CDT Oxygen Saturation 97% 10/21/2024 9:43 AM SOCIAL SCIENCE PROFESSOR Inhaled Oxygen Concentration - - Weight 73 kg (161 lb) 10/11/2024 11:08 AM SOCIAL SCIENCE PROFESSOR Height 154.9 cm (5' 1) 10/11/2024 11:08 AM SOCIAL SCIENCE PROFESSOR Body Mass Index 30.42 10/11/2024 11:08 AM SOCIAL SCIENCE PROFESSOR Plan of Treatment Upcoming Encounters Date Type Department Care Team (Late st Contact Info) Description 11/29/2024 10:30 AM CDT Ancillary Procedure [facility] [address] [place] [address] 11/29/2024 11:15 AM CDT Office Visit [facility] [address] [place] [address] Melanie Mcgovern DO [address] [place] [address] Health Maintenance Due Date Last Done Comments BMI (ht and wt on same day) for age 18+ 10/11/2025 10/11/2024, 10/02/2023, 06/02/2023, Additional history exists Medicare Wellness for age 65+ 10/12/2025, 10/02/2023, 10/01/2022, Additional history exists Depression screening for age 12+ 10/13/2025 10/13/2024, 10/11/2024, 10/04/2024, Additional history exists Tetanus booster 03/15/2032 03/15/2022, 12/01, 10/22/1999 Pneumococcal series for age 50+ Completed 5, 12/19/2008 Tdap Completed 03/15/2022 Zoster (shingles) series for age 50+ Completed 08/01/2022, 04/10/2022, 04/27/2007 DEXA/DXA scan for age 65+ Completed 2022, 06/27/2020, 06/23/2018, Additional history exists RSV vaccine for adults or Completed 10/20/2023 COVID-19 vaccine series Completed 06/14/20 24, 05/30/2023, 05/30/2023, Additional history exists Influenza for age 65+ Completed 06/14/2024 , 05/30/2023, 06/18/2022, Additional history exists Medical Devices Implanted Type Area Program Research Specialist Device Identifier Shelf Expiration Date Model / Serial / Lot Stent Uret [id number] Contour - [id number] Implanted:Qty: 1 on 06/05/2021 by Toney Shaw MD at [facility] Left: [employer]ter [facility] 04/12/2029 [id number] / / [id number] Procedures Procedure Name Priority Date/Time Associated Diagnosis Comments PATH TISSUE EXAM Routine 10/21/2024 10:0 0 AM SOCIAL SCIENCE PROFESSOR Squamous cell carcinoma in situ PATH TISSUE EXAM Routine 10/11/2024 12:2 1 PM SOCIAL SCIENCE PROFESSOR Skin lesion of left arm XR MAMMO ALIREZA BILAT SCREEN Routine 10/04/2024 11:07 AM SOCIAL SCIENCE PROFESSOR Visit for screening mammogram LIPID PANEL W REFLEX MEASURED LDL Routine 10/04/2024 10:40 AM SOCIAL SCIENCE PROFESSOR Mixed hyperlipidemia MAGNESIUM Routine 10/04/2024 10:40 AM SOCIAL SCIENCE PROFESSOR Hypomagnesemia HEMOGLOBIN Routine 10/04/2024 10:40 AM SOCIAL SCIENCE PROFESSOR History of anemia COMP METABOLIC PANEL Routine 10/04/2024 10:40 AM SOCIAL SCIENCE PROFESSOR Medication management XR DXA BONE DENSITY 2 SITES AXIAL Routine 10/09/2022 12:00 PM SOCIAL SCIENCE PROFESSOR Osteoporosis, unspecified osteoporosis type, unspecified pathological fracture presence from Last 3 Months or Most Recently Relevant to Health Maintenance Results * PATH TISSUE EXAM (10/21/2024 10:00 AM SOCIAL SCIENCE PROFESSOR) Only the most recent of2 resultswithin the time period is included. Case Report Pathology Report Case: [id number] Authorizing Provider: Melanie Mcgovern DO Collected: 10/21/2024 1000 Ordering Location: [facility] Received: 10/21/2024 [facility] Pathologist: Vasile Escoto MD Specimen: Left Arm, excisional biopsy to get 5mm borders 10/25/2024 4:55 PM SOCIAL SCIENCE PROFESSOR [employer] Final Diagnosis A) SKIN OF LEFT ARM, SQUAMOUS CELL CARCINOMA IN SITU, RE-EXCISION: 1. Biopsy site changes with surface ulceration 2. Negative for residual squamous cell carcinoma 3. See comment 10/25/2024 4:55 PM SOCIAL SCIENCE PROFESSOR [employer] [facility] Comment This specimen represents a re-excision of the patient's prior squamous cell carcinoma in situ of the left arm ([id number]). 10/25/2024 4:55 PM SOCIAL SCIENCE PROFESSOR [facility] Clinical Information [facility] left arm 10/25/2024 4:55 PM SOCIAL SCIENCE PROFESSOR [facility] Gross Description A) Received in formalin, labeled with the patient's name and date of , is a 4.5 x 1.6 x 1.3 cm un-oriented skin ellipse. There is a 0.8 x 0.6 cm crusted tsang-johnson lesion that is 0.3 cm from the nearest peripheral skin edge. The specimen is inked orange, is serially sectioned and entirely submitted: 1. Tips 2-5. Remainder of specimen, sequentially submitted EVM 10/22/2024 10/25/2024 4:55 PM SOCIAL SCIENCE PROFESSOR [facility] Microscopic Description The final diagnosis is based on microscopic examination of appropriate sections of all specimens. [place] ink is identified histologically. 10/25/2024 4:55 PM SOCIAL SCIENCE PROFESSOR [facility] Additional Information Interpreted at [facility] - [address] [facility] [address] [address] 10/25/2024 4:55 PM SOCIAL SCIENCE PROFESSOR [facility] Other (Left Arm) Non-Blood / Unknown 10/21/2024 10:00 AM SOCIAL SCIENCE PROFESSOR 10/21/2024 10:37 AM SOCIAL SCIENCE PROFESSOR us Melanie Mcgovern DO PATHOLOGY/CYTOLOGY Final R esult [facility] [address] [place] [address], * XR MAMMO ALIREZA BILAT SCREEN (10/04/2024 11:07 AM SOCIAL SCIENCE PROFESSOR) Anatomical Region Laterality Modality BREASTS, Breast Left, Breast Right Bilateral Mammography Impressions 10/04/2024 2:48 PM SOCIAL SCIENCE PROFESSOR There is no radiographic evidence for malignancy. Recommend annual mammograms. MAMMOGRAM ASSESSMENT: ACR 1 Negative PATIENTS: You will also receive a letter with your examination results in an easy to read format. If you have questions about your results, please contact your referring provider. Narrative 10/04/2024 2:48 PM SOCIAL SCIENCE PROFESSOR For Patients: As a result of the Century Cures Act, medical imaging exams and procedure reports are released immediately into your electronic medical record. You may view this report before your referring provider. If you have questions, please contact your health care provider. XR MAMMO ALIREZA BILAT SCREEN [[id number]] CLINICAL HISTORY: This is an asymptomatic 79 y.o. patient. INDICATION FOR EXAM: Mammogram Screening. TECHNIQUE: CC & MLO views were obtained. This study was evaluated with the assistance of Computer-Aided Detection. Breast Tomosynthesis was used in interpretation. COMPARISON FILM: Yes 10/02/23 [facility] 10/01/22 [facility] FINDINGS: There are scattered areas of fibroglandular density. There are no dominant masses, suspicious micro calcifications or areas of architectural distortion. Melanie Mcgovern DO MAMMO Final Resu lt * LIPID PANEL W REFLEX MEASURED LDL (10/04/2024 10:40 AM SOCIAL SCIENCE PROFESSOR) CHOLESTEROL, TOTAL 178 <200 mg/dL [facility] HDL CHOLESTEROL 61 > OR = 50 mg/dL [facility] TRIGLYCERIDES 128 <150 mg/dL [facility] LDL-CHOLESTEROL 95 mg/dL (calc) [facility] Comment: Reference range: <100 Desirable range <100 mg/dL for primary prevention; <70 mg/dL for patients with CHD or diabetic patients with > or = 2 CHD risk factors. LDL-C is now calculated using the Xavi calculation, which is a validated novel method providing better accuracy than the Friedewald equation in the estimation of LDL-C. Shai FLYNN et al. ADI. 2013;310(19): 7236-4542 (http://education.Rackup.Lust have it!/faq/SZZ751) CHOL/HDLC RATIO 2.9 <5.0 (calc) [facility] NON HDL CHOLESTEROL 117 <130 mg/dL (calc) [facility] Comment: For patients with diabetes plus 1 major ASCVD risk factor, treating to a non-HDL-C goal of <100 mg/dL (LDL-C of <70 mg/dL) is considered a therapeutic option. Blood BLOOD SPECIMEN / Unknown 10/04/2024 10:40 AM SOCIAL SCIENCE PROFESSOR 10/04/2024 10:41 AM SOCIAL SCIENCE PROFESSOR Narrative [facility] - 10/05/2024 5:33 AM SOCIAL SCIENCE PROFESSOR FASTING:NO FASTING: NO [facility] Brinda Mcgovern DO CHEMISTRY Final Resu lt Performing Organization Address City/[facility]/ZIP Co de Phone Number [facility] [address] [place] [place] [address], [facility] [address] [place] [address] * HEMOGLOBIN (10/04/2024 10:40 AM SOCIAL SCIENCE PROFESSOR) HEMOGLOBIN 13.6 11.7 - 15.5 g/dL [facility] Blood BLOOD SPECIMEN / Unknown 10/04/2024 10:40 AM SOCIAL SCIENCE PROFESSOR 10/04/2024 10:41 AM SOCIAL SCIENCE PROFESSOR Narrative [facility] - 10/05/2024 2:57 AM SOCIAL SCIENCE PROFESSOR FASTING:NO FASTING: NO [facility] Brinda Mcgovern DO HEMATOLOGY Final Resu lt Performing Organization Address [facility]/ZIP Co de Phone Number [facility] [address] [place] [address], [facility] [address] [facility] [place] [address] * MAGNESIUM (10/04/2024 10:40 AM SOCIAL SCIENCE PROFESSOR) MAGNESIUM 1.8 1.5 - 2.5 mg/dL [facility] Blood BLOOD SPECIMEN / Unknown 10/04/2024 10:40 AM SOCIAL SCIENCE PROFESSOR 10/04/2024 10:41 AM SOCIAL SCIENCE PROFESSOR Narrative [facility] - 10/05/2024 5:33 AM SOCIAL SCIENCE PROFESSOR FASTING:NO FASTING: NO us Melanie Mcgovern DO CHEMISTRY Final Resu lt [facility] [place] [address], [place] [phone] [facility] [address] [place] [address] * (ABNORMAL) COMP METABOLIC PANEL (10/04/2024 10:40 AM SOCIAL SCIENCE PROFESSOR) GLUCOSE 100 65 - 139 mg/dL [facility] Comment: Non-fasting reference interval UREA NITROGEN (BUN) 23 7 - 25 mg/dL [facility] CREATININE 1.05(H) 0.60 - 0.95 mg/dL [facility] EGFR 53(L) > OR = 60 mL/min/1.7 3m2 [facility] BUN/CREATININE RATIO 22 6 - 22 (calc) [facility] SODIUM 141 135 - 146 mmol/L [facility] POTASSIUM 5.0 3.5 - 5.3 mmol/L [facility] CHLORIDE 101 98 - 110 mmol/L [facility] CARBON DIOXIDE 30 20 - 32 mmol/L [facility] CALCIUM 10.1 8.6 - 10.4 mg/dL [facility] PROTEIN, TOTAL 6.6 6.1 - 8.1 g/dL [facility] ALBUMIN 4.2 3.6 - 5.1 g/dL [facility] GLOBULIN 2.4 1.9 - 3.7 g/dL (calc) [facility] ALBUMIN/GLOBULIN RATIO 1.8 1.0 - 2.5 (calc) [facility] BILIRUBIN, TOTAL 0.6 0.2 - 1.2 mg/dL [facility] ALKALINE PHOSPHATASE 94 37 - 153 U/L [facility] AST 21 10 - 35 U/L [facility] ALT 18 6 - 29 U/L [facility] Blood BLOOD SPECIMEN / Unknown 10/04/2024 10:40 AM SOCIAL SCIENCE PROFESSOR 10/04/2024 10:41 AM SOCIAL SCIENCE PROFESSOR Narrative [facility] - 10/05/2024 5:33 AM SOCIAL SCIENCE PROFESSOR FASTING:NO FASTING: NO Melanie Mcgovern DO CHEMISTRY Final Resu lt [facility] [address] [place] [address], [facility] [address] [place] [address] * (ABNORMAL) XR DXA BONE DENSITY 2 SITES AXIAL (10/09/2022 12:00 PM SOCIAL SCIENCE PROFESSOR) Anatomical Region Laterality Modality Spine, HIPS, HIPL, HIPR Other Impressions 10/11/2022 1:07 PM SOCIAL SCIENCE PROFESSOR Osteopenia. RECOMMENDATIONS: The National Osteoporosis Foundation recommends pharmacologic treatment for patients with T-scores of -2.5 or less, patients with prior history of fragility fractures, or patients with 10-year probability of greater than 3% at hips or greater than 20% of suffering major osteoporotic fractures. Recommend continued optimization of calcium and vitamin D intake through dietary means and/or supplementation and regular exercise. Continue current Alendronate (Fosamax) medication treatment. Recheck bone density in 2 years. Fannie Angel PA-C [facility] 10/11/2022 Narrative 10/11/2022 1:07 PM SOCIAL SCIENCE PROFESSOR For Patients: Results are automatically released to your [employer] account once available, in compliance with federal regulations. This means that you may see your results before your provider has had a chance to review them. Please allow 2-3 business days for your provider to comment on the results. XR DXA Bone Mineral Density (BMD) EXAM LOCATION: [address] [address] PATIENT NAME: Gabriella Rg DATE OF : 1945 EXAM DATE: 10/09/2022 REQUESTING PROVIDER: Melanie Mcgovern DO GENDER AT : female HEIGHT: 5' 0.79 (10/01/2022) WEIGHT: 174 lb (10/01/2022) MENOPAUSAL STATUS: Postmenopausal RACE/ETHNICITY: White RISK FACTORS: Height Loss (2 inches or more) and White Race CURRENT MEDICATION FOR BONE LOSS: Alendronate (Fosamax) INDICATION: Screening for osteoporosis COMPARISON DATE(S): 2019 DXA scans are compared to prior studies for a patient only when the two (or more) studies were performed on the same scanner. It is not possible to compare data generated on one scanner to data from another because there are not standards in DXA equipment. This applies even if the two scanners are made by the same programming development project manager. PROCEDURE: Dual-energy x-ray absorptiometry performed with routine technique. Reporting is completed in the form of a T-score. The T-score represents the standard deviation from peak bone mass based on young healthy adult. A Z-score is used for diagnosis in premenopausal women, and for men under the age of 50. FINDINGS: RESULT LUMBAR SPINE L1 - L4 BMD: 1.157 g/cm2 T-Score: - 0.2 Z-Score: + 1.2 Change from prior in 2019: Decrease 0.3%. RESULTS FEMUR Left femoral neck BMD: 0.718 g/cm2 T-Score: - 2.3 Z-Score: - 0.5 Change from prior in 2020: Decrease 14.3%. Right femoral neck BMD: 0.809 g/cm2 T-Score: - 1.6 Z-Score: + 0.2 Change from prior in 2020: Increase 2.5%. Left hip BMD: 0.722 g/cm2 T-Score: - 2.3 Z-Score: - 0.6 Change from prior in 2020: Decrease 10.6%. Right hip BMD: 0.796 g/cm2 T-Score: - 1.7 Z-Score: - 0.1 Change from prior in 2020: Increase 0.4%. 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 Healthcare Directive 05/14/2021 7:42 AM * Full Code (Latest Code Status on File) Date Activated Date Inactivated Comments 06/12/2021 9:22 AM 06/13/2021 2:08 AM Question Answer Comments Code Status Discussion: Per Existing Order * Full Code Date Activated Date Inactivated Comments 06/05/2021 10:32 AM 06/05/2021 7:27 PM Question Answer Comments Code Status Discussion: Not Discussed 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
[2024-10-28] MEDS: BUPIVACAINE 0.5 %/EPI 1:200K INJECTION (07:07)
[2024-10-28] MEDS: LIDOCAINE 1%-EPI 1:100,000 20 ML INFILTRATI (07:07)
--- NOTE | 2024-10-28 07:37 | PM.ORPRC ---
Procedure Note Date of procedure: 10/28/24 Procedure: Preop diagnosis: Left hand middle finger stenosing tenosynovitis Postop diagnosis: Left hand middle finger stenosing tenosynovitis Procedure: Left hand middle finger A1 bruna release Anesthesia: Local Surgeon: Spencer Oconnor MD human resources office assistant: Karen Orr PA-C EBL: 5 mL Complications: None Specimens: None Drains: None Preoperative antibiotics: None Indications: The patient has a history of left upper extremity middle finger painful catching and locking. Despite appropriate non operative management including flexor tendon sheath corticosteroid injections they continue to have symptoms. Operative intervention was recommended. The risks, benefits alternatives and expected outcomes were discussed in detail. These included but were not limited to: Infection, bleeding, injury to blood vessel or nerve, venous thromboembolism. All questions were answered to their satisfaction. The patient was placed supine on the operating room table. Local anesthesia was established with 0.5% Marcaine with epinephrine and 2% lidocaine with epinephrine. The hand was prepped and draped in usual sterile fashion. A transverse incision was made centered over the base of the middle finger in the distal palmar crease. Subcutaneous dissection was taken through the palmar fascia to the flexor tendons with the tenotomy scissors. The A1 bruna was released with the 15 blade and tenotomy scissors. Active flexion and extension of the finger shows no catching or locking, no bowstringing of the flexor tendons. The wound was closed with interrupted nylon sutures. A dry dressing was applied. Sponge and needle counts were correct x 2. The patient tolerated the procedure well, there were no apparent complications. They were sent to same day surgery in satisfactory condition. Plan: Use of the hand as tolerates. Discontinue the intraoperative dressing on postoperative day 3 and may get the wound wet as tolerates. Follow up in the office in 2 weeks for a wound check and suture removal.
== END 2024-10-28 08:02 | disposition home or self-care (01) ==
LOC: OR 06:14
PROVIDERS: PCP Family Medicine; Visit Provider Orthopaedic Surgery
PROC: (CPT 26055; principal; 2024-10-28 07:15)
DX: M65.332 Trigger finger, left middle finger (principal); M65.842 Other synovitis and tenosynovitis, left hand
CPT/HCPCS: 26055; J3490

== ENCOUNTER 2025-01-05 13:45 | Outpatient (RCR) | payer MEDICARE, OTHER, SELFPAY ==
--- NOTE | 2024-12-28 13:55 | OT.OPOE ---
OT Outpatient Ortho Eval OT Outpatient Ortho Eval* Start: 12/28/24 12:57 Freq: Status: Active Protocol: Document 12/28/24 12:58 CSS (Rec: 12/28/24 13:50 CSS [id number]) E-signed By Eliane Virgen OTR/L OT OP Ortho Eval Details Complexity Complexity Low Insurance Information Insurance Information Medicare B,[facility] Outpatient History/Precautions Current Condition/Medical Diagnosis Referring Provider Dr. Oconnor Medical Diagnoses M65.332- Trigger finger, left middle finger Treatment Diagnosis M25.342- hand instability(L) pain in fingers (thumb included) (L)- M79.645 Medical Conditions Heart Condition,Arthritis Medical/Functional History Medical History Reviewed Yes: trigger finger release Social History Employment Status Retired Hobbies gardening, crocheting Ortho Subjective Subjective Subjective Pt notes that her L middle finger can sometimes pop with flexion and has difficulty with straightening out her L middle finger PIP joint; she notes difficulty with straightening out even before surgery. Pt notes goal in therapy is to reduce pain in L middle finger with gripping/ pinch activities. Pain Assessment Pain Pain Yes Pain Comments L middle finger: rest: 0/10 activity/grippin/10 Range of Motion and Strength Hand/Finger/Thumb Range of Motion and Strength Hand/Finger/Thumb Range of Motion and R hand WNL; Strength L hand: middle finger: MCP: 0-81 degrees PIP: 16-93 degrees DIP: 0-92 degrees R hand middle finger: MCP: 90 PIP: 96 DIP: 102 Hand Pinch/[employer] Strength Hand Pinch/[employer] Strength Hand Pinch/[employer] Strength Left Hand,Right Hand Left Hand [employer] Strength Position 1 in Elbow 17 Flexion (lbs) Lateral Pinch Strength (lbs) 8 Three Point Pinch (lbs) 8 Right Hand [employer] Strength Position 1 in Elbow 44 Flexion (lbs) Lateral Pinch Strength (lbs) 13 Three Point Pinch (lbs) 10 OT Objective Data Hand Hand Dominance Right Sensation Sensation Assessment Summary Comments denies N/T OT Problems Problems Problems Decreased Strength,Pain, Lifting,Gripping Other Problems Opening Containers,Sleeping Patient Potential Good Assessment Assessment Assessment Pt is a 79 year old female who is referred to OT with symptoms of pain and weakness in L hand after post trigger finger release of L middle finger on 10/28/24. Pt notes ongoing pain with functional gripping, lifting, and pinching tasks, as well when sleeping. Pt would benefit from ongoing skilled OT to address above symptoms to promote indep of L hand. Occupational Therapy Treatment Plan - OP Set Goals Goals Set with Patient Yes Goals Goals Goals to be met by 02/22/25: 1) Pt will note decreased pain to 1/10 or less with functional gripping activities in 2 consistent sessions or more. 2) Pt will increase L artificial stone applicator strength to 30# or more in order to promote function in L hand. 3) Pt will verbalize compliance of HEP in order to progress towards goals. Treatment Plan Treatment Plan Evaluation,Edema Control, Iontophoresis with Dexamethasone Sodium Phosphate 1 mL (4mg per mL),Joint Mobilization,Manual Therapy, Splinting,Ultrasound,Wound Care/Scar Management, Therapeutic Exercise, Therapeutic Activities,Self Care/Home Management,Education Expected Frequency 1-2x Week Expected Duration 8-10 Weeks Home Program Home Program Home Program Initiated Home Program Specifics heat; scar massage; tendon glides; compression glove Certification Certification Statement I Certify That: Therapy Services Provided, Therapy Plan Established, Therapy Plan Reviewed Certification Information Clinic ID # [id number] Initial Certification Date 12/28/24 Recertification Due Date 02/22/25 Provider Signature Required Yes Provider Signature Shows Agreement With POC & Medical Necessity Physician NPI Number Write NPI# Here Physician Comment/Change Comment or Changes Physician Signature & Date Requested Please Sign/Date Here
== END 2025-05-05 23:59 | disposition home or self-care (01) ==
PROVIDERS: PCP Family Medicine; Visit Provider Orthopaedic Surgery
DX: Z48.89 Encounter for other specified surgical aftercare (principal); M65.332 Trigger finger, left middle finger; Z51.89 Encounter for other specified aftercare
CPT/HCPCS: 97035; 97110; 97140; 97165; X5282

== ENCOUNTER 2025-06-19 17:28 | Emergency (ER) | payer MEDICARE, OTHER, SELFPAY ==
--- OUTSIDE RECORDS SUMMARY | 2025-06-19 17:30 | XMS_ITS | Clinical Summary ---
Author Organization [facility] Address [address] [place] [id number] Care Team Providers Care Associate Relations Specialist Name Role Phone Melanie Mcgovern DO Primary Care Provider [phone] Toney Shaw MD Unavailable + Allergies No known active allergies Medications MULTIVITAMIN TAB take 1 tablet by oral route once daily with food 0 008 Active Calcium-Cholecalc iferol, D3, (CALCIUM 500 + D, D3,) 500-125 mg-unit Tab Take by mouth. 0 010 Active cholecalciferol (VITAMIN D) 1,000 unit capsule Take 2 capsules by mouth once daily. New dose today. 0 011 Active vit C,X-Ae-jsdwx-lute in-zeaxan (PreserVision AREDS-2) capsule Take 1 Capsule by mouth once daily. 0 022 Active fluticasone (50 mcg per actuation) nasal solution (FLONASE)Indicati ons:Chronic cough Inhale 2 Sprays to both nostrils once daily. 48 g 023 Active omeprazole (PRILOSEC) 20 mg Delayed-Release capsuleIndication s:Gastric reflux Take 1 Capsule (20 mg) by mouth once daily before a meal 90 Capsule 024 Active Additional Information Patient taking differently:20 mg Oral ONCE DAILY BEFORE A MEAL,prn, Reported on 03/24/2025 amLODIPine (NORVASC) 2.5 mg tabletIndications :Essential hypertension Take 1 Tablet (2.5 mg) by mouth once daily. 90 Tablet 3 025 Active atorvastatin (LIPITOR) 20 mg tabletIndications :Mixed hyperlipidemia Take 1 Tablet (20 mg) by mouth at bedtime. 90 Tablet 3 025 Active clobetasol (TEMOVATE) 0.05 % ointmentIndicatio ns:Lichen sclerosus Apply to affected area nightly x 6wks then 2-3 times a week 60 g 1 025 Active ferrous sulfate 325 mg delayed release tabletIndications :Iron deficiency anemia, unspecified iron deficiency anemia type Take 1 Tablet (325 mg) by mouth once daily with a meal. 90 Tablet 3 025 Active metoprolol succinate (TOPROL XL) 50 mg sustained-release tabletIndications :Paroxysmal atrial fibrillation (HC) Take 1 Tablet (50 mg) by mouth once daily. Further refills require cardiology appointment 90 Tablet 3 025 Active magnesium chloride (Slow-Mag) 71.5 mg delayed release tabletIndications :Low magnesium level TAKE THREE TABLETS BY MOUTH DAILY 270 Tablet 3 025 Active lisinopriL 40 mg tabletIndications :HTN (hypertension) Take 1 Tablet (40 mg) by mouth once daily. 90 Tablet 2 025 Active methylPREDNISolon e (Medrol (Claudio)) 4 mg tabletIndications :Right leg pain Take by mouth as instructed per packaging. 21 Tablet 025 Active tiZANidine (ZANAFLEX) 2 mg tabletIndications :Right leg pain Take 1 Tablet (2 mg) by mouth at bedtime. 14 Tablet 025 Active warfarin (COUMADIN) 2 mg tabletIndications :Paroxysmal atrial fibrillation (HC),Anticoagulat ion monitoring, INR range 2-3 Take by mouth 3 mg (2 mg x 1.5) every Mon, Jayde; 2 mg (2 mg x 1) all other days in the evening OR as directed. 104 Tablet 025 Active warfarin (COUMADIN) 2 mg tabletIndications :Paroxysmal atrial fibrillation (HC),Anticoagulat ion monitoring, INR range 2-3 Take by mouth 3 mg (2 mg x 1.5) every Mon, Jayde; 2 mg (2 mg x 1) all other days 025 2024 Discontinued Active Problems Problem Noted Date Diagnosed Date Postoperative hypovolemic shock 03/28/2025 Overview (03/28/2025): Patient had 1000 mL operative blood loss. With this she had hypotension. Postoperatively she received blood transfusion and briefly was on norepinephrine for blood pressure support. With blood and fluids her blood pressure has improved and she has otherwise done very well. Lisinopril is held at discharge but likely can be resume next week Postoperative anemia due to acute blood loss Overview (03/28/2025): Patient had postoperative anemia secondary to heavy than usual bleeding from hip surgery. Received blood transfusion. Hemoglobin stabilized at 9.1 Greater trochanteric bursitis of both hips 03/28 Anticoagulation monitoring, INR range 2-3 2024 Stage 3a chronic kidney disease 10/02/2023 S/P total right hip arthroplasty 06/10/2023 Overview (03/28/2025): TONY-AA (06/10/2023, Dr. Oconnor) Hypomagnesemia 08/16/2021 Overview (01/06/2023): Sent message to [...] Lichen sclerosus 08/22/2020 Osteopenia 06/27/2018 Overview (06/30/2018): 2014 osteopenia, repeat 3-5 years. Fraxa hip fracture score 2% 2018: worsening osteopenia with fraxa hip fracture score [...] Encounters Date Type Department Care Team Description 06/16/2025 10:00 AM CDT Orders Only [facility] [address] [place] [address] [place] <No scans attached> 06/16/2025 Anticoagulation (warfarin) [facility] [address] [place] [address] NurseMarianna Anticoag Anticoagulation 06/16/2025 Travel 06/11/2025 Travel 06/09/2025 Telephone [facility] [address] [facility] [place] [address] Melanie Mcgovern, DO Anticoagulation 06/03/2025 Refill [facility] [address] [place] [address] Melanie Mcgovern DO Refill Request (Warfarin) 05/26/2025 10:45 AM CDT Orders Only [facility] [address] [facility] [address] [place] <No scans attached> 05/26/2025 Anticoagulation (warfarin) [facility] [address] [facility] [address] Nurse, Ahg Anticoag Anticoagulation 05/26/2025 Travel 05/21/2025 Travel 04/28/2025 10:30 AM CDT Orders Only [facility] [address] [facility] [address] [place] <No scans attached> 04/28/2025 Anticoagulation (warfarin) [facility] [address] [facility] [address] Nurse, Ahg Anticoag Anticoagulation 04/28/2025 Travel 04/23/2025 Travel 04/15/2025 10:30 AM CDT Orders Only [facility] [address] [facility] [address] [place] Lab 04/15/2025 Telephone [facility] [address] [facility] [address] Melanie Mcgovern DO Anticoagulation 04/15/2025 Anticoagulation (warfarin) [facility] [address] [facility] [address] Nurse, Ahg Anticoag Anticoagulation 04/15/2025 Travel 04/10/2025 Travel 03/31/2025 10:30 AM CDT Orders Only [facility] [address] [facility] [address] [place] Lab 03/31/2025 Anticoagulation (warfarin) [facility] [address] [facility] [address] Nurse, Ahg Anticoag Anticoagulation 03/31/2025 Travel 03/28/2025 2:30 PM CDT Ancillary Procedure [facility] [address] [facility] [address] 03/28/2025 1:40 PM CDT Office Visit [facility] [address] [place] [address] Tyler Vincent DO Knee Pain/problem (RIGHT leg - has seen Zeeprashanth Rodrgiuez x2 - has a bruise on her knee and is very tender and hurts ) 03/28/2025 Travel 03/28/2025 Nurse Triage [facility] [address] [place] [address] Melanie Mcgovern DO Knee Pain/problem 03/26/2025 Travel 03/24/2025 1:00 PM CDT Ancillary Procedure [address] [address] 03/24/2025 11:45 AM CDT Ancillary Procedure [address] [address] 03/24/2025 11:05 AM CDT Office Visit [address] [address] Zee Rodriguez PA Hip Pain/problem 03/24/2025 Anticoagulation (warfarin) [facility] [address] [place] [address] Nurse, Marianna Anticoag Anticoagulation (Chart Update) 03/24/2025 Telephone [facility] [address] [place] [address] Melanie Mcgovern DO Anticoagulation (BPA-Methylprednisolo ne) 03/24/2025 Travel 03/21/2025 1:30 PM CDT Orders Only [address] [address] [place] Lab 03/21/2025 Anticoagulation (warfarin) [facility] [address] [place] [address] Nurse, Marianna Anticoag Anticoagulation 03/21/2025 Travel from Last 3 Months Immunizations Immunization Administration Dates Next Due COVID-19 VACCINE SPIKEVAX (M ODERNA 50MCG/0.5ML) 12YO+ PFS 05/30/2023 COVID-19 vaccine (Pfizer-Bio NTech 30mcg/0.3mL) 12YO+ BIVALENT PF, MDV 06/18/2022 COVID-19 vaccine (R-Squared [employer] 30mcg/0.3mL) PF, MDV 10/25/2020,10/04/2020 Influenza, High-dose Inactivated [...] on file Legal 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 Gender Identity Not on file Sexual Orientation Not on file Occupation Industry Job Start Date Job End Date 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[address]; 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 Not on yelena e [...] Sign Reading Time Taken Comments Blood Pressure 163/72 03/28/2025 1:48 PM CDT Pulse 60 03/28/2025 1:47 PM CDT Temperature 36.5 C (97.7 F) 06/22/2024 11:56 AM CDT Respiratory Rate 16 06/12/2021 2:30 PM CDT Oxygen Saturation 97% 03/28/2025 1:47 PM CDT Inhaled Oxygen Concentration - - Weight 76.7 kg (169 lb) 03/28/2025 1:47 PM CDT Height 154.9 cm (5' 1) 10/11/2024 11:08 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 Body Mass Index 31.93 10/11/2024 11:08 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 Plan of Treatment Upcoming Encounters Date Type Department Care Team (Late st Contact Info) Description 07/14/2025 10:00 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 Orders Only [facility] [address] [place] [address] [place] 10/13/2025 9:40 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 Ancillary Procedure [facility] [address] [place] [address] 10/13/2025 10:25 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 Office Visit [facility] [address] [place] [address] Melanie Mcgovern DO [address] [place] [address] Health Maintenance Due Date Last Done Comments COVID-19 vaccine series ( season) 2025 06/14/2024, 05/30/2023, 05/30/2023, Additional history exists Influenza Vaccine (#1) 2025 , 06/18/2022, 05/24/2021, Additional history exists BMI (ht and wt on same day) for age 18+ 10/11/2025 10/11/2024, 10/02/2023, 06/02/2023, Additional history exists Medicare Wellness for age 65+ 10/12/2025 10/11/2024, 10/02/2023, 10/01/2022, Additional history exists Depression screening for age 12+ 10/13/2025 10/13/2024, 10/11/2024, 10/04/2024, Additional history exists Tetanus booster 03/15/2032 03/15/2022, 04/01/2010, 10/22/1999 Pneumococcal series for age 50+ Completed 06/08/2015, 12/19/2008 Zoster (shingles) series for age 50+ Completed 08/01/2022, 04/10/2022, 04/27/2007 RSV vaccine for adults or Completed 10/20/2023 DEXA/DXA scan for age 65+ Completed 2024, 10/09/2022, 06/27/2020, Additional history exists Hepatitis B series for 19+ Aged Out N o longer eligible based on patient's age to complete this topic Medical Devices Implanted Type Area Power Brake Rebuilder Device Identifier Shelf Expiration Date Model / Serial / Lot Stent Uret [id number] Contour - [id number] Implanted:Qty: 1 on 06/05/2021 by Toney Shaw MD at [facility] Left: [employer] [facility] 04/12/2029 [id number] / [id number] Procedures Procedure Name Priority Date/Time Associated Diagnosis Comments INR,POCT Routine 06/16/2025 10:10 AM CDT Paroxysmal atrial fibrillation (HC) Anticoagulation monitoring, INR range 2-3 INR,POCT Routine 05/26/2025 10:32 AM CDT Paroxysmal atrial fibrillation (HC) Anticoagulation monitoring, INR range 2-3 INR,POCT Routine 04/28/2025 10:19 AM CDT Paroxysmal atrial fibrillation (HC) Anticoagulation monitoring, INR range 2-3 INR,POCT Routine 04/15/2025 10:26 AM CDT Paroxysmal atrial fibrillation (HC) Anticoagulation monitoring, INR range 2-3 INR,POCT Routine 03/31/2025 10:25 AM CDT Paroxysmal atrial fibrillation (HC) Anticoagulation monitoring, INR range 2-3 SEDIMENTATION RATE Routine 03/28/2025 2: 41 PM CDT Acute pain of right knee CT KNEE RIGHT WO STAT 03/28/2025 2:25 PM CDT Acute pain of right knee XR HIP 1 VIEW W PELVIS RIGHT RUI 03/24/2025 11:53 AM CDT Right leg pain US VENOUS LOWER EXTREMITY RIGHT RUI 03/24/2025 11:50 AM CDT Right leg pain INR,POCT Routine 03/21/2025 1:26 PM CDT Paroxysmal atrial fibrillation (HC) Anticoagulation monitoring, INR range 2-3 XR DXA BONE DENSITY 2 SITES AXIAL Routine 11/29/2024 10:30 AM CDT Osteoporosis, unspecified osteoporosis type, unspecified pathological fracture presence from Last 3 Months or Most Recently Relevant to Health Maintenance Results * (ABNORMAL) INR - POCT [04123.2] - Standing Order (06/16/2025 10:10 AM CDT) Only the most recent of6 resultswithin the time period is included. INR 2.0(H) ratio 06/16/2025 10:25 AM CDT [facility] Comment: INRs >2.9 may be falsely elevated in patients receiving either unfractionated Heparin or Low Molecular Weight Heparin. Follow up testing in a hospital laboratory may be helpful if clinically indicated. INR results of > or = 5.0 should be verified using the standard venipuncture procedure. Reference Range 0.9-1.1 Moderate-intensity Warfarin Therapy 2.0-3.0 Higher-intensity Warfarin Therapy 3.0-4.0 PROTHROMBIN TIMEP 24.5(H) 10.5 - 13.1 sec 06/16/2025 10:25 AM CDT [facility] Comment: Point of care fingerstick Prothrombin Time/INR results may vary from venous Prothrombin Time/INR methodologies. Any results exhibiting inconsistency with the patient's clinical status should be repeated using a venous Prothrombin Time/INR method. Blood BLOOD SPECIMEN / Unknown [facility] / Unknown 06/16/2025 10:10 AM CDT 06/16/2025 10:10 AM CDT us Melanie Mcgovern DO LABORATORY Final Resu lt [facility] [address] [place] [address], [place] [phone] [facility] [address] [place] [address], [place] [phone] * SEDIMENTATION RATE (03/28/2025 2:41 PM CDT) SED RATE BY MODIFIED JOHNERGREN 9 < OR = 30 mm/h [facility] Blood BLOOD SPECIMEN / Unknown 03/28/2025 2:41 PM CDT 03/28/2025 2:42 PM CDT us Lisei Melisa DO HEMATOLOGY Final Result [facility] [address] [place] [address], [place] [phone] [facility] [address] [place] [address] * CT KNEE RIGHT WO (03/28/2025 2:25 PM CDT) Anatomical Region Laterality Modality KNEE R Computed Tomogra phy 03/28/2025 2:40 PM CDT Impressions 03/28/2025 2:40 PM CDT 1. Tricompartmental degenerative changes most prominent in the lateral compartment. 2. Chondrocalcinosis. 3. Mild anterior subcutaneous edema. 4. Osteopenia. Please note that all CT scans at this facility use dose modulation, iterative reconstruction, and/or weight-based dosing when appropriate to reduce radiation dose to as low as reasonably achievable. Dictated by Jareth Rao MD @ 03/28/2025 2:40:10 PM (Electronically Signed) Narrative 03/28/2025 2:40 PM CDT For Patients: As a result of the Century Cures Act, medical imaging exams and procedure reports are released immediately into your electronic medical record. You may view this report before your referring provider. If you have questions, please contact your health care provider. EXAM: CT OF THE RIGHT KNEE, WITHOUT CONTRAST CLINICAL INDICATION: Persistent knee pain. Bruising. COMPARISON STUDIES: 03/31/2015 TECHNICAL: Non-contrast CT of the knee with axial images. Sagittal oblique and coronal oblique reformatted images were created. FINDINGS: OSSEOUS STRUCTURES: General: Osteopenia. Femur: No fracture. Tibia: No fracture. Fibula: No fracture. Patella: No fracture. JOINT SPACE: Knee Joint: No joint effusion, synovitis, loose body or lipohemarthrosis. Medial Compartment: Mild narrowing and hypertrophic change. Chondrocalcinosis. Lateral Compartment: Mild to moderate narrowing and hypertrophic changes. Chondrocalcinosis. Patellofemoral Compartment: Mild hypertrophic changes. EXTENSOR MECHANISM: Distal Quadriceps Tendon: No tear or tendinopathy. Patellar Tendon: No tear or tendinopathy. Patellar Retinaculum: Normal. Patellar Alignment: No tilt or subluxation. SOFT TISSUES: Mild anterior subcutaneous edema. No hematoma. MUSCLES: No intramuscular hematoma. No muscle atrophy. NEUROVASCULAR STRUCTURES: No abnormality of the visualized neurovascular structures. Procedure Note Jareth Rao MD - 03/28/2025 For Patients: As a result of the Cures Act, medical imagingexams and procedure reports are released immediately into your electronicmedical record. You may view this report before your referring provider.If you have questions, please contact your health care provider. EXAM: CT OF THE RIGHT KNEE, WITHOUT CONTRAST CLINICAL INDICATION: Persistent knee pain. Bruising. COMPARISON STUDIES: 03/31/2015 TECHNICAL: Non-contrast CT of the knee with axial images. Sagittal oblique andcoronal oblique reformatted images were created. FINDINGS: OSSEOUS STRUCTURES: General: Osteopenia. Femur: No fracture. Tibia: No fracture. Fibula: No fracture. Patella: No fracture. JOINT SPACE: Knee Joint: No joint effusion, synovitis, loose body orlipohemarthrosis. Medial Compartment: Mild narrowing and hypertrophic change.Chondrocalcinosis. Lateral Compartment: Mild to moderate narrowing and hypertrophic changes.Chondrocalcinosis. Patellofemoral Compartment: Mild hypertrophic changes. EXTENSOR MECHANISM: Distal Quadriceps Tendon: No tear or tendinopathy. Patellar Tendon: No tear or tendinopathy. Patellar Retinaculum: Normal. Patellar Alignment: No tilt or subluxation. SOFT TISSUES: Mild anterior subcutaneous edema. No hematoma. MUSCLES: No intramuscular hematoma. No muscle atrophy. NEUROVASCULAR STRUCTURES: No abnormality of the visualized neurovascular structures. IMPRESSION: 1. Tricompartmental degenerative changes most prominent in the lateralcompartment. 2. Chondrocalcinosis. 3. Mild anterior subcutaneous edema. 4. Osteopenia. Please note that all CT scans at this facility use dose modulation,iterative reconstruction, and/or weight-based dosing when appropriate toreduce radiation dose to as low as reasonably achievable. Dictated by Jareth Rao MD @ 03/28/2025 2:40:10 PM (Electronically Signed) us Adei Cristhianqra DO CT Final Result * XR HIP 1 VIEW W PELVIS RIGHT (03/24/2025 11:53 AM CDT) Anatomical Region Laterality Modality HIPS, HIPR, Pelvis Computed Radi ography 03/24/2025 5:31 PM CDT Impressions 03/24/2025 5:31 PM CDT Right hip arthroplasty without evidence of hardware complications. Dictated by Bharat Kee MD @ 03/24/2025 5:31:20 PM (Electronically Signed) Narrative 03/24/2025 5:31 PM CDT For Patients: As a result of the Cures Act, medical imaging exams and procedure reports are released immediately into your electronic medical record. You may view this report before your referring provider. If you have questions, please contact your health care provider. INDICATION: Right leg pain. TECHNIQUE: Pelvis and right hip 2 views. COMPARISON: 11/14/2022. FINDINGS: Right hip arthroplasty. Hardware appears intact and appropriately seated. Bone alignment is normal. No sign of acute fracture. Moderate degenerative changes of the left hip and pubic symphysis. Mild degenerative changes of the SI joints. Lower lumbar spondylosis. Vascular calcifications. Curvilinear radiopaque density projects over the right thigh, unchanged. Procedure Note Bharat Kee MD - 03/24/2025 For Patients: As a result of the Cures Act, medical imagingexams and procedure reports are released immediately into your electronicmedical record. You may view this report before your referring provider.If you have questions, please contact your health care provider. INDICATION: Right leg pain. TECHNIQUE: Pelvis and right hip 2 views. COMPARISON: 11/14/2022. FINDINGS: Right hip arthroplasty. Hardware appears intact and appropriately seated.Bone alignment is normal. No sign of acute fracture. Moderate degenerativechanges of the left hip and pubic symphysis. Mild degenerative changes ofthe SI joints. Lower lumbar spondylosis. Vascular calcifications.Curvilinear radiopaque density projects over the right thigh, unchanged. IMPRESSION: Right hip arthroplasty without evidence of hardware complications. Dictated by Bharat Kee MD @ 03/24/2025 5:31:20 PM (Electronically Signed) us [facility] Final Result * US VENOUS LOWER EXTREMITY RIGHT (03/24/2025 11:50 AM CDT) Anatomical Region Laterality Modality LEGS, LEG R, Abdomen Ultrasound 03/24/2025 2:00 PM CDT Impressions 03/24/2025 2:00 PM CDT Normal right lower extremity venous ultrasound, no sign of deep venous thrombosis. Dictated by Milo Reed MD @ 03/24/2025 2:00:56 PM (Electronically Signed) Narrative 03/24/2025 2:00 PM CDT For Patients: As a result of the Cures Act, medical imaging exams and procedure reports are released immediately into your electronic medical record. You may view this report before your referring provider. If you have questions, please contact your health care provider. INDICATION: Right leg pain TECHNIQUE: Ultrasound venous duplex lower right extremity. Compression venous exam was performed using johnson-scale, color Doppler, and spectral Doppler imaging. COMPARISON: None. FINDINGS: Sonographic imaging demonstrates the right common femoral, deep femoral, superficial femoral, popliteal, posterior tibial and greater saphenous and the contralateral left common femoral veins to be fully compressible with normal color Doppler blood flow. Procedure Note Milo Reed MD - 03/24/2025 For Patients: As a result of the Cures Act, medical imagingexams and procedure reports are released immediately into your electronicmedical record. You may view this report before your referring provider.If you have questions, please contact your health care provider. INDICATION: Right leg pain TECHNIQUE: Ultrasound venous duplex lower right extremity. Compression venous examwas performed using johnson-scale, color Doppler, and spectral Dopplerimaging. COMPARISON: None. FINDINGS: Sonographic imaging demonstrates the right common femoral, deep femoral,superficial femoral, popliteal, posterior tibial and greater saphenous andthe contralateral left common femoral veins to be fully compressible withnormal color Doppler blood flow. IMPRESSION: Normal right lower extremity venous ultrasound, no sign of deep venousthrombosis. Dictated by Milo Reed MD @ 03/24/2025 2:00:56 PM (Electronically Signed) [facility] Final Result * (ABNORMAL) XR DXA BONE DENSITY 2 SITES AXIAL (11/29/2024 10:30 AM CDT) Anatomical Region Laterality Modality Spine, HIPS, HIPL, HIPR Other Impressions 11/30/2024 12:58 PM CDT Osteopenia. RECOMMENDATIONS: The National Osteoporosis Foundation recommends pharmacologic treatment for patients with T-scores of -2.5 or less, patients with prior history of fragility fractures, or patients with 10-year probability of greater than 3% at hips or greater than 20% of suffering major osteoporotic fractures. Recommend continued optimization of calcium and vitamin D intake through dietary means and/or supplementation and regular exercise. Consider pharmacologic therapy for osteopenia with increased fracture risk. Follow-up bone density reading in 2 years if therapy initiated to assess therapeutic efficacy. There is increased fracture risk. Fannie Angel PA-C [facility] 11/30/2024 Narrative 11/30/2024 12:58 PM CDT For Patients: Results are automatically released to your [facility] ([employer]) account once available, in compliance with federal regulations. This means that you may see your results before your provider has had a chance to review them. Please allow 2-3 business days for your provider to comment on the results. XR DXA Bone Mineral Density (BMD) EXAM LOCATION: [address] [address] PATIENT NAME: Gabriella Rg DATE OF : 1945 EXAM DATE: 11/29/2024 REQUESTING PROVIDER: Melanie Mcgovern DO GENDER AT : female HEIGHT: 5' 1 (10/11/2024) WEIGHT: 161 lb (10/11/2024) MENOPAUSAL STATUS: Postmenopausal RACE/ETHNICITY: White RISK FACTORS: Height Loss (2 inches or more) and White Race CURRENT MEDICATION FOR BONE LOSS: NONE INDICATION: Follow-up of existing osteopenia and Post-Menopause COMPARISON DATE(S): 2022 DXA scans are compared to prior studies for a patient only when the two (or more) studies were performed on the same scanner. It is not possible to compare data generated on one scanner to data from another because there are not standards in DXA equipment. This applies even if the two scanners are made by the same master esthetician. PROCEDURE: Dual-energy x-ray absorptiometry performed with routine technique. Reporting is completed in the form of a T-score. The T-score represents the standard deviation from peak bone mass based on young healthy adult. A Z-score is used for diagnosis in premenopausal women, and for men under the age of 50. FINDINGS: RESULT LUMBAR SPINE L1 - L4 BMD: 1.187 g/cm2 T-Score: - 0.1 Z-Score: + 1.5 Change from prior in 2022: Increase 2.6%. RESULTS FEMUR Left femoral neck BMD: 0.752 g/cm2 T-Score: - 2.1 Z-Score: + 0.0 Change from prior in 2022: Increase 4.7%. Left hip BMD: 0.752 g/cm2 T-Score: - 2.3 Z-Score: - 0.4 Change from prior in 2022: Increase 0.0%. WHO criteria: Normal: T-score at or above -1 SD Osteopenia: T-score between -1.1 and -2.4 SD Osteoporosis: T-score at or below -2.5 SD FRAX RISK CALCULATION (USED FOR OSTEOPENIA ONLY): 10-year probability of major osteoporotic fracture: 15.6%. 10-year probability of hip fracture: 4.7%. Melanie Mcgovern DO DEXA Final Resu lt from Last 3 Months or Most Recently Relevant to Health Maintenance Insurance MEDICARE PART B HB ONLY MEDICA PRIME SOLUTION HB MEDICA PRIME [employer]) MR PB ONLY WORKERS COMP [facility] [place] [id number] Advance Directives Documents on File Type Date Recorded Patient Dental Ceramist Helper Expl anation Healthcare Directive 05/14/2021 7:42 AM * Full Code (Latest Code Status on File) Date Activated Date Inactivated Comments 06/12/2021 9:22 AM 06/13/2021 2:08 AM Question Answer Comments Code Status Discussion: Per Existing Order * Full Code Date Activated Date Inactivated Comments 06/05/2021 10:32 AM 06/05/2021 7:27 PM Question Answer Comments Code Status Discussion: Not Discussed Care Teams Associate Relations Specialist Relationship Specialty Start Date End Date Melanie Mcgovern DO [address] [place] [address] PCP - General Family Practice 05/19/13 Toney Shaw MD [address] [place] [address] Surgery - Urology 10/03/21
--- OUTSIDE RECORDS SUMMARY | 2025-06-19 17:30 | XMS_ITS | Data Portability ---
Author Organization [place] [facility] Address [address] [place] [address] Care Team Providers Care Fulfillment Representative Name Role Phone RONN CRONIN Primary Care Provider Assessment Encounter Date Assessment [...] stenosis - s/p dilation - voiding well [email or web address] Not available 04/04/2023 14:30:48 06/25/2024 06/25/2024 78F [...] resul t No observ ation record ed. [email or web address] Not Available 06/29 17:23:58 09/20/19 22 09/19/2021 CT, chest + abdom en + pelvi s, w/ contr ast No observ ation record ed. [email or web address] Not Available 09/28 17:52:21 03/25/20 22 03/22/2022 CT, abdom en + pelvi s, w/o contr ast No observ ation record ed. [email or web address] Not Available 04/05 18:06:13 03/24/20 23 03/20/2023 US, renal No observ ation record ed. [email or web address] Not Available 2022 10:11:51 02/24/20 24 02/24/2024 US, renal No observ ation record ed. [email or web address], [place], [address], 05/30/2024 21:55:30 Result Notes None recorded. Problems Name Problem SNOMED Code Status Onset Date Resolution Date Notes Provider Name and Address Organization Details Recorded Time Renal mass 393840455 Active 021 Toney aparicio MD, PHD [address] [place] [address] , [facility] 1 12:18:18 Blood in urine 34372611 Active 021 Toney aparicio MD, PHD [address] [place] [address] , [facility] 1 12:18:24 Stenosis of urinary meatus 786583184 Active 021 Toney aparicio MD, PHD [address] [place] [address] , [facility] 1 12:18:33 Problem Notes None recorded. Procedures Surgical History Date Name Laterality Status Provider Name and Address Organization Details Recorded Time 06/29/20 21 Cystoscopy with foreign body/stent removal completed Toney alford MD, PHD [address] [place] [address],[place] [address], [facility] 06/29/2021 14:13:03 04/06/20 21 Cystoscopy- female completed Toney alford MD, PHD [address] [place] [address], [facility] 04/06/2021 12:15:57 09/01/19 16 colonoscopy completed Aleta Montoya [facility] 06/29/2021 14:38:50 Total Hysterectomy completed Lissy Valencia [facility] 04/06/2021 11:10:48 Imaging Results None recorded. Procedure Notes None recorded. Medical Equipment None [...] Updated DateTime 09/19/2021 154.94 cm 30.8 kg/m2 92098.56 g Charley Juans [facility] 09/19/2021 15:52:11 Date Recorded Body height Body mass index (BMI) Body weight Respiratory rate Provider Name and Address Organization Details Last Updated DateTime 03/25/2022 154.94 cm 30.8 kg/m2 71565.56 g 16 /min Jennifer Jung [facility] 03/25/2022 16:48:59 Date Recorded Body height Body mass index (BMI) Body weight Provider Name and Address Organization Details Last Updated DateTime 04/04/2023 154.94 cm 32.7 kg/m2 79788.48 g Toney alford MD, PHD [address] [place] [address], [phone] [place] [address] 04/04/2023 13:47:15 Date Recorded Body height Body mass index (BMI) Body weight Provider Name and Address Organization Details Last Updated DateTime 06/25/2024 154.94 cm 32.7 kg/m2 71971.48 g Toney alford MD, PHD [address] [place] [address], [phone] [place] [address] 06/25/2024 14:28:34 Date Recorded Body height Body mass index (BMI) Body weight Provider Name and Address Organization Details Last Updated DateTime 06/29/2021 154.94 cm 30.8 kg/m2 28639.56 g Aleta Montoya [facility] 06/29/2021 14:38:30 Social History Question Answer Notes LastModified by Organizat ion Details LastModified Time Tobacco Smoking Status Never Smoker Lissy lay [facility] 04/06/2021 11:10:35 What Was The Date Of Your Most Recent Tobacco Screening? 06/25/2024 [email or web address] Information not available 06/25/2024 Has Tobacco Cessation Counseling Been Provided? No [email or web address] Information not available 04/04/2023 Sex: Unknown Functional Status Question Answer Note LastModified by Organizat ion Details LastModified Time How many times per week do you consume alcohol? Less than 1 time per week Information not available 04/04/2023 Do you or have you ever used any other forms of tobacco or nicotine? No Information not available 04/04/2023 What is your level of alcohol consumption? Occasional Information not available 04/04/2023 Mental Status None recorded. Family History Relationship Description Onset Age of this Age Resolved Age Notes LastModified by Organization Details LastModified Time Father No current problems or disability [email or web address] Not available 04/06 11:10:19 Mother No current problems or disability [email or web address] Not available 04/06 11:10:19 Medical History Condition Response Other N High Blood Pressure Y Kidney Stones N Lung Disease N Depression N GERD/Acid Reflux Y Sexually Transmitted Infection N Diabetes N Bleeding Disorder N Cancer N High Cholesterol Y Heart Disease N Gynecological History Statement/Question Response Irregular periods N Leaking urine with intercourse N Hormone Therapy N Heavy periods N Pain with intercourse N Sexually Active? N Obstetrics History GPAL:G 5 P 0 0 0 0 Immunizations Vaccine Type Date Status Note Provider Nam e and Address Organization Details Recorded Time Influenza, adjuvanted, trivalent, PF 7 completed Toney Shaw MD, PHD [address] [place] [address] [facility] 04/04/2023 13:47:19 Influenza, adjuvanted, trivalent, PF 8 completed Toney Shaw MD, PHD [address] [place] [address], [facility] 04/04/2023 13:47:19 Influenza, adjuvanted, trivalent, PF 9 completed Toney Shaw MD, PHD [address] [place] [address], [facility] 04/04/2023 13:47:19 Influenza, adjuvanted, quadrivalent, PF 0 completed Toney Shaw MD, PHD [address] [place] [address], [facility] 04/04/2023 13:47:19 Influenza, adjuvanted, quadrivalent, PF 1 completed Toney Shaw MD, PHD [address] [place] [address],[facility] [address], [place], [address], [facility] 04/04/2023 13:47:19 COVID-19, mRNA, LNP-S, PF, 30 mcg/0.3 mL dose 1 completed Toney Shaw MD, PHD [address] [place] [address],[facility] [address], [place], [address], [facility] 04/04/2023 13:47:19 COVID-19, mRNA, LNP-S, PF, 30 mcg/0.3 mL dose 1 completed Toney Shaw MD, PHD [address] [place] [address],[address], [address], [facility] 04/04/2023 13:47:19 COVID-19, mRNA, LNP-S, PF, 30 mcg/0.3 mL dose 1 completed Toney Shaw MD, PHD [address] [place] [address],[address], [address], [facility] 04/04/2023 13:47:19 pneumococcal polysaccharide PPV23 9 completed Toney Shaw MD, PHD [address] [place] [address],[facility] [address], [place], [address], [facility] 04/04/2023 13:47:19 Pneumococcal conjugate PCV 13 5 completed Toney Shaw MD, PHD [address] [place] [address], [place], [address], [facility] 04/04/2023 13:47:19 zoster live 7 completed Toney Shaw MD, PHD [address] [place] [address],[address], [address], [facility] 04/04/2023 13:47:19 Influenza, high-dose, trivalent, PF 4 completed Toney Shaw MD, PHD [address] [place] [address], [phone], [facility] 04/04/2023 13:47:19 Influenza, high-dose, trivalent, PF 5 completed Toney Shaw MD, PHD [address] [place] [address], [phone], [facility] 04/04/2023 13:47:19 Influenza, high-dose, trivalent, PF 6 completed Toney Shaw MD, PHD [address] [place] [address], [phone], [facility] 04/04/2023 13:47:19 Influenza, split virus, trivalent, preservative 3 completed Toney Shaw MD, PHD [address] [place] [address], [phone], [facility] 04/04/2023 13:47:19 Influenza, split virus, trivalent, preservative 2 completed Toney Shaw MD, PHD [address] [place] [address], [address], [facility] 04/04/2023 13:47:19 Influenza, split virus, trivalent, PF 1 completed Toney Shaw MD, PHD [address] [place] [address], [address], [facility] 04/04/2023 13:47:19 Influenza, split virus, trivalent, PF 0 completed Toney Shaw MD, PHD [address] [place] [address],[address], [address], [facility] 04/04/2023 13:47:19 Td (adult), 5 Lf tetanus toxoid, preservative free, adsorbed 0 completed Toney Shaw MD, PHD [address] [place] [address],[place] [address], [place], [address], [facility] 04/04/2023 13:47:19 Past Encounters Encounter ID Performer Location Encounter Start Date Encounter Closed Date Diagnosis/Indication Diagnosis SNOMED-CT Code Diagnosis ICD10 Code Diagnosis IMO Codes Diagnosis Note [id number] Toney aparicio MD, PHD _[place] [address] [place] [address] 04/06/2021 10:50:58 04/11/2021 11:37:26 Renal mass 332851919 N28.89 Blood in urine 50058728 R31.9 Stenosis o f urinary meatus 152293461 N35.92 [id number] Toney aparicio MD, PHD _[place] [address] [place] [address] 06/29/2021 14:28:02 07/02/2021 10:39:51 Renal mass 556263685 N28.89 Blood in urine 06002305 R31.9 Stenosis o f urinary meatus 035542030 N35.92 [id number] Toney aparicio MD, PHD _[place] [address] [place] [address] 09/19/2021 15:45:45 09/24/2021 09:10:53 Renal mass 734263006 N28.89 Blood in urine 20992745 R31.9 Stenosis o f urinary meatus 830326309 N35.92 [id number] Toney aparicio MD, PHD [facility] [address] [place] [address],[address] [address] 03/25/2022 16:46:55 03/27/2022 08:04:08 Renal mass 303224711 N28.89 Blood in urine 82892962 R31.9 Stenosis o f urinary meatus 780359672 N35.92 [id number] Toney aparicio MD, PHD _[place] [address] [place] [address] 04/04/2023 13:30:12 04/10/2023 15:24:46 Renal mass 187277184 N28.89 Blood in urine 87313366 R31.9 Stenosis o f urinary meatus 647753954 N35.92 [id number] Toney aparicio MD, PHD _[place] [address] [place] [address] 06/25/2024 14:23:44 06/30/2024 09:36:17 Renal mass 570001791 N28.89 Blood in urine 10018077 R31.9 Stenosis o f urinary meatus 878629209 N35.92 Health Concerns Section Related Observation LastModified by Organization Detai ls LastModified Time None Recorded Concern Status LastModified by Organization Details LastModified Time None Recorded Advance Directives Directive None Recorded Payers Insurance Date Sequence Insurance Name Policy Number Policy Haskins Covered Member ID Haskins Member ID Guarantor Name 06/25/2024 1 [place] [employer] Gabriella Rg [id number] Gabriella Rg 06/25/2024 2 MEDICA - DOS ON OR AFTER 2020 - MEDICA GOVERNMENT PROGRAMS - ADVANTAGE SOLUTION (MEDICARE REPLACEMENT/A DVANTAGE - PPO) [id number] Gabriella Rg [id number] Gabriella Rg 06/25/2024 1 [place] [employer] Gabriella Rg [id number] Gabriella Rg 06/30/2024 1 MEDICA - PRIME SOLUTION (MEDICARE REPLACEMENT/A DVANTAGE - HMO) [id number] Gabriella Rg [id number] Gabriella Rg Notes Date Note Type Note Provider Name and Address Organization Details Recorded Time 06/29/2021 text/html 75F with left renal masses. Voiding better since meatal dilation. Some urgency. Initially presented with central abdominal pain and hematuria 03/01. Was treated for UTI. CT showed left renal mass. 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 Had biopsy: Possible hemorrhagic cyst. Here for interval imaging. No recent flank pain or hematuria. Cytology (04/06/21): NEM Voiding better since meatal dilation. Some urgency. Initially presented with central abdominal pain and hematuria 03/01. Was treated for UTI. CT showed left renal mass. 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 Had biopsy: Possible hemorrhagic cyst. Here for interval imaging. No recent flank pain or hematuria. Cytology (04/06/21): NEM Voiding better since meatal dilation. Some urgency. Initially presented with central abdominal pain and hematuria 03/01/2021. Was treated for UTI. CT showed left renal mass. 06/05/21: meatal dilation, Left RPG neg, attempted left URS- unable to place scope, stent [id number]/12/21: left renal mass bx: path: adipose with [...] coordinate their care. Toney Shaw MD, PHD [address] [place] [address],[address], [place], [address], [facility] 03/25/2022 17:30:30 04/04/2023 text/html 77F with left renal mass. Had biopsy: Possible hemorrhagic cyst. Here for interval imaging. No recent flank pain or hematuria. Cytology (04/06/21): NEM Voiding better since meatal dilation. Some urgency. Initially presented with central abdominal pain and hematuria 03/01/2021. Was treated for UTI. CT showed left renal mass. 06/05/21: meatal dilation, Left RPG neg, attempted left URS- unable to place scope, stent pawnwf75/12/21: left renal mass bx: path: adipose with [...] occasional FamHx:Adopted Toney Shaw MD, PHD [address], [place], [address], [facility] 04/04/2023 14:30:58 06/25/2024 text/html 78F with left renal mass. Has UTI; starting Abx per PMD. [...] neverEtOH: occasional FamHx:Adopted Toney Shaw MD, PHD [address], [place], [address], [facility] 06/25/2024 14:48:53 OBGyn Episode No OBEpisode recorded.
[2025-06-19 17:36] VITALS: BP 134/82; PULSE 97; RESP 18; TEMP 36.3; O2SAT 93; BMI 32.1
--- NOTE | 2025-06-19 18:44 | CRLHL7_ITS ---
For Patients: As a result of the Cures Act, medical imaging exams and procedure reports are released immediately into your electronic medical record. You may view this report before your referring provider. If you have questions, please contact your health care provider. INDICATION: Back and leg pain. Technique : Lumbar spine three views FINDINGS: There are 5 lumbar type vertebrae. There is mild multilevel intervertebral disc space narrowing with small anterior marginal osteophytes. There is no fracture or dislocation. There is an oval structure projecting upon the left side of the abdomen that may represent a pill in the bowel. There is a right total hip arthroplasty. There are right upper quadrant cholecystectomy clips. IMPRESSION: Overall mild lumbar spondylosis. Dictated by Phani Pierson MD @ 06/19/2025 7:24:54 PM (Electronically Signed)
--- NOTE | 2025-06-19 20:28 | ED.LOWEXIN ---
HPI - Extremity Injury (Lower) General Date Seen: 06/19/25 Chief Complaint: Extremity Pain/Injury, Lower Stated Complaint: sore R leg Time Seen by Provider: 06/19/25 18:24 Source: patient, family, RN notes reviewed and old records reviewed Mode of arrival: ambulatory Limitations: no limitations History of Present Illness HPI Narrative: Patient is a very nice 79-year-old female who presents here with right-sided leg pain for the last 2-3 months today should pain was so bad she could walk start to get better, noted a black and blue spot in knee, this was a few weeks ago, she has been to Orthopedics, her regular physician a couple times, they have not been able to figure out what is causing her pain. She describes her pain is in her right buttock, with occasional radiation down her knee. It tends to go from the left to the right, she says it actually is worse when she is not moving around, better when she is moving around to getting up and moving she did take oxycodone before coming in. She does size no weakness, no numbness or tingling or sensory changes. She does not describe any cramping in her calves. She does says she gets an altered sensation in her feet bilaterally, but is unable to tell me if it is on the top or bottom. No history of falls or injury. She does take Tylenol regularly. Related Data Home Medications ?Medication ?Instructions ?Recorded ?Confirmed amlodipine 2.5 mg tablet 2.5 mg PO DAILY 05/26/23 04/04/25 atorvastatin 20 mg tablet 20 mg PO HS 05/26/23 04/04/25 metoprolol succinate 50 mg 50 mg PO DAILY 05/26/23 04/04/25 tablet,extended release 24 hr fluticasone propionate 50 2 spray intranasal DAILY 06/10/23 04/04/25 mcg/actuation nasal spray,suspension magnesium chloride 71.5 mg 143 mg PO DAILY 09/22/23 04/04/25 (magnesium chloride) tablet,delayed release (Slow-Mag) lisinopril 40 mg tablet 40 mg PO DAILY 06/14/24 04/04/25 warfarin 2 mg tablet 3 mg PO QPM 04/04/25 04/04/25 Previous Rx's ?Medication ?Instructions ?Recorded acetaminophen 500 mg capsule 500 - 1,000 mg (1 - 2 x 500 mg) PO 06/10/23 Q6H PRN pain #100 caps Allergies Allergy/AdvReac Type Severity Reaction Status Date / Time No Known Drug Allergies Allergy Verified 04/04/25 14:31 Review of Systems Status of ROS: Reports: 10 or more systems reviewed and unremarkable except as noted in History and below [facility] Medical History Osteoarthritis of right hip ?M16.11 - Unilateral primary osteoarthritis, right hip (ICD-10) Urinary tract infection ?N39.0 - Urinary tract infection, site not specified (ICD-10) Supratherapeutic international normalized ratio (INR) ?R79.1 - Abnormal coagulation profile (ICD-10) Hematuria ?R31.9 - Hematuria, unspecified (ICD-10) Renal mass ?N28.89 - Other specified disorders of kidney and ureter (ICD-10) Stenosis of urinary meatus Lichen sclerosus ?L90.0 - Lichen sclerosus et atrophicus (ICD-10) Non-rheumatic mitral regurgitation ?I34.0 - Nonrheumatic mitral (valve) insufficiency (ICD-10) Osteopenia ?M85.80 - Other specified disorders of bone density and structure, unspecified site (ICD-10) Colon polyp ?K63.5 - Polyp of colon (ICD-10) Vitamin D deficiency ?E55.9 - Vitamin D deficiency, unspecified (ICD-10) Social anxiety disorder ?F40.10 - Social phobia, unspecified (ICD-10) Hypomagnesemia ?E83.42 - Hypomagnesemia (ICD-10) Paroxysmal atrial fibrillation ?I48.0 - Paroxysmal atrial fibrillation (ICD-10) High cholesterol ?E78.00 - Pure hypercholesterolemia, unspecified (ICD-10) Hypertension ?I10 - Essential (primary) hypertension (ICD-10) Osteoarthritis of left hip ?M16.12 - Unilateral primary osteoarthritis, left hip (ICD-10) Osteoarthritis of carpometacarpal (CMC) joint of left thumb ?M18.12 - Unilateral primary osteoarthritis of first carpometacarpal joint, left hand (ICD-10) Osteoarthritis of carpometacarpal (CMC) joint of right thumb ?M18.11 - Unilateral primary osteoarthritis of first carpometacarpal joint, right hand (ICD-10) Surgical History Status post trigger finger release (10/28/24) ?Z98.890 - Other specified postprocedural states (ICD-10) S/P 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) ?Z96.641 - Presence of right artificial hip joint (ICD-10) Hx of breast biopsy ?Z98.890 - Other specified postprocedural states (ICD-10) History of hysterectomy ?Z90.710 - Acquired absence of both cervix and uterus (ICD-10) Hx of cholecystectomy ?Z90.49 - Acquired absence of other specified parts of digestive tract (ICD-10) Social History Narrative: Adopted What is your current living situation?: I presently have a place to live In the past 12 months, utilities in danger of being shut off: no In past 12 months, lack of transportation kept you from medical appts, meetings, work, or getting things needed for daily living: no In the past 12 mos, have been you worried that your food would run out before you had money to buy more?: never true In the past 12 mos, the food you bought just didn't last and you didn't have money to buy more?: never true Smoking Status: Never smoker Do you use any of these nicotine containing products: None Second hand tobacco smoke exposure: Yes (whole family smokes) How often do you have a drink containing alcohol: never AUDIT-C Alcohol total score: 0 Non-prescribed substance use: denies use Caffeine: No How often does anyone, including family, friends and others, physically hurt you: never How often does anyone, including family, friends and others, insult or talk down to you: never How often does anyone, including family, friends and others, threaten you with harm: never How often does anyone, including family, friends and others, scream or curse at you: never Exam Narrative: Exam Narrative: On examination in room 6 she is in no apparent distress she is pleasant alert she is able to get up and walk for me, stand she is able to bend over and touch her toes her right knee has full range of motion in flexion extension, lateral and medial is normal on testing and straining her ACL and PCL are normal. Popliteal posterior tibial and DP pulses are normal, sensations normal normal over her foot, and her reflexes are 0/4 her knees and ankles, she has normal EHLs, great toe flexors, ankle dorsiflexors plantar flexors knee flexors extensors she does not have a positive straight leg raise. No tenderness on her back on palpation percussion. Const: Vital Signs, click to edit/add: Vital Signs - 24 hr 06/19/25 17:36 Temperature 97.4 F L Pulse Rate [Pulse Oximeter] 97 Respiratory Rate 18 Blood Pressure [Ri ght Upper Arm] 134/82 Pulse Oximetry 93 Oxygen Delivery Me thod Room Air Course Course ED Course: Discussed with them that the x-ray is not so bad of her back I can find no evidence of anything really wrong with her rate now that is not a bad thing but it is what it is. I will discharge him home to follow up with primary care and they were fine with this. Vital Signs Vital signs: Initial Vital Signs Temperature 97.4 F L 06/19/25 17:36 Temperature Source Temporal Artery Scan 06/19/25 17:36 Pulse Rate 97 06/19/25 17:36 Respiratory Rate 18 06/19/25 17:36 Blood Pressure 134/82 06/19/25 17:36 Blood Pressure Mean 99 06/19/25 17:36 Blood Pressure Position Sitting 06/19/25 17:36 Pulse Oximetry 93 06/19/25 17:36 Oxygen Delivery Method Room Air 06/19/25 17:36 Vital Signs Temperature 97.4 F L 06/19/25 17:36 Pulse Rate 97 06/19/25 17:36 Respiratory Rate 18 06/19/25 17:36 Blood Pressure 134/82 06/19/25 17:36 Pulse Oximetry 93 06/19/25 17:36 Oxygen Delivery Method Room Air 06/19/25 17:36 Temperature 97.4 F L 06/19/25 17:36 Pulse Rate 97 06/19/25 17:36 Respiratory Rate 18 06/19/25 17:36 Blood Pressure 134/82 06/19/25 17:36 Pulse Oximetry 93 06/19/25 17:36 Oxygen Delivery Method Room Air 06/19/25 17:36 MDM - Extremity Injury (Lower) Medical Records Attestation: I reviewed the patient's medical records. Imaging Data Knee x-ray: Attestation: I have reviewed the pertinent imaging results. My impression: Mild degenerative changes Radiologist's impression: [place] [address] Diagnostic Imaging Report Patient: Gabriella Rg MR#: [id number] : 1945 Acct:[id number] Loc: ED Service Date: 06/19/[address]: Ordering Physician: Denny Freire M.D. Date of Service: 06/19/25 Procedure(s): XR lumbar spine 2-3V Accession Number(s): [id number] cc: Denny Freire M.D.; Melanie Mcgovern D.O.~ For Patients: As a result of the Cures Act, medical imaging exams and procedure reports are released immediately into your electronic medical record. You may view this report before your referring provider. If you have questions, please contact your health care provider. INDICATION: Back and leg pain. Technique : Lumbar spine three views FINDINGS: There are 5 lumbar type vertebrae. There is mild multilevel intervertebral disc space narrowing with small anterior marginal osteophytes. There is no fracture or dislocation. There is an oval structure projecting upon the left side of the abdomen that may represent a pill in the bowel. There is a right total hip arthroplasty. There are right upper quadrant cholecystectomy clips. IMPRESSION: Overall mild lumbar spondylosis. Dictated by Phani Pierson MD @ 06/19/2025 7:24:54 PM (Electronically Signed) Discharge Plan Discharge Clinical Impression: Chronic leg pain Patient Disposition: Home w/ Parent or Adult Condition: Stable Instructions: Pain Management in Older Adults (DC), Chronic Pain (ED), Non-pharmacological Pain Management Therapies for Adults (ED) Additional Instructions: Home, rest, follow-up with primary care, your x-ray of your back to sewed some mild arthritis for your age, this does not mean that she can have sciatica, the test of choice than would be an MRI which her primary care physician can order for you follow-up on as-needed basis. Activity Level: Light activity Prescriptions: No Action Slow-Mag 71.5 mg tablet,delayed release (DR/EC) 143 mg PO DAILY atorvastatin 20 mg tablet 20 mg PO HS amlodipine 2.5 mg tablet 2.5 mg PO DAILY metoprolol succinate 50 mg tablet extended release 24 hr 50 mg PO DAILY lisinopril 40 mg tablet 40 mg PO DAILY warfarin 2 mg tablet 3 mg PO QPM acetaminophen 500 mg capsule 500 - 1,000 mg PO Q6H MDD 4000mg per day PRN (Reason: pain) Qty: 100 0RF fluticasone propionate 50 mcg/actuation spray,suspension 2 spray INTRANASAL DAILY Follow Up/Referrals: Melanie Mcgovern DO [Primary Care Provider, Family Practice] Stand Alone Forms: [facility] Info Instructions
== END 2025-06-19 20:22 | disposition home or self-care (01) ==
PROVIDERS: Emergency Provider Family Medicine; PCP Family Medicine
DX: M79.604 Pain in right leg (principal); G89.29 Other chronic pain; M47.816 Spondylosis without myelopathy or radiculopathy, lumbar region
CPT/HCPCS: 72100; 99283

== ENCOUNTER 2025-06-30 06:19 | Outpatient (CLI) | payer MEDICARE, OTHER, SELFPAY ==
[2025-06-30 06:46] VITALS: BP 132/64; PULSE 66; RESP 16; O2SAT 95
--- NOTE | 2025-06-30 07:31 | PM.ORPRC ---
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 COMPLICATIONS: None. SPECIMENS: None. DRAINS: None. PREOPERATIVE ANTIBIOTICS: None INDICATIONS: The patient is a 79-year-old with a history of right hip pain secondary to the above diagnoses. Despite appropriate non operative management, they continue to have symptoms. Operative intervention was recommended. The risks, benefits and expected outcomes were discussed in detail. These included but were not limited to: Infection, bleeding, injury to blood vessel or nerve, venous thromboembolism. All questions were answered to their satisfaction. PROCEDURE: The patient was placed in the lateral decubitus position. The right hip was imaged in the long and short axes with the ultrasound transducer. Normal acoustic landmarks were identified. We then sterilely prepped and draped the skin, and used a sterile probe cover with sterile gel. Local anesthesia was established with 10 mL of a solution containing 2 % lidocaine without epinephrine, 0.5% Marcaine without epinephrine and sodium bicarbonate. An 11 blade was used to incise the skin. The Tenex TX 2 micro tip was used to treat the abductor tendon for a total of 4 minutes and 01 seconds. The incision was Steri-Stripped closed. A dry dressing was applied. Sponge and needle counts were correct x2. The patient tolerated the procedure well. There were no apparent complications. They were discharged to home in satisfactory condition. PLAN: The patient may weightbear as tolerates. Ice, Tylenol and ibuprofen can be used for discomfort. They may ramp up activity as the hip will allow. They will follow up in the office in 6 weeks to assess their progress.
[2025-06-30 07:34] VITALS: BP 116/79; PULSE 64; RESP 16; O2SAT 96
== END 2025-06-30 07:46 | disposition home or self-care (01) ==
LOC: US 06:19
PROVIDERS: PCP Family Medicine; Visit Provider Orthopaedic Surgery
DX: M70.61 Trochanteric bursitis, right hip (principal)
CPT/HCPCS: 27006; 76942; J0665